=== PATIENT | female | born 1980 | race Caucasian/White ===

== ENCOUNTER 2022-08-26 14:55 | Outpatient (REF) | payer BC, SELFPAY ==
--- NOTE | 2022-08-26 17:36 | PFT_ITS ---
INDICATION: Chronic cough. SPIROMETRY: FEV1 to FVC 89% with an FEV1 3.28 L or 102% predicted. FVC of 3.69 L, which is 92% predicted. No significant response to bronchodilators noted. Maximum voluntary ventilation 116% predicted. LUNG VOLUMES: Total lung capacity 92% predicted. DIFFUSION CAPACITY: DLCO is 94% predicted. COMPARISONS: None. INTERPRETATION: No obstructive nor restrictive ventilatory defects identified. No significant response to bronchodilators noted. Normal maximum voluntary ventilation. Lung volumes are within normal limits and diffusion capacity also within normal limits. Flow volume loop within normal limits with normal respiratory mechanics. If asthma is in the differential, methacholine challenge may be helpful for assessing for hyper-reactive airways. Otherwise clinical correlation warranted. Johnathan Maurer MD MR/MODL / [id number]
== END 2022-08-26 14:56 | disposition home or self-care (01) ==
LOC: HO.RESP 14:55
PROVIDERS: PCP Nurse Practitioner Family; Visit Provider Nurse Practitioner Family
DX: R05.3 Chronic cough (principal)
CPT/HCPCS: 94060; 94727; 94729

== ENCOUNTER 2022-09-18 07:49 | Outpatient (REF) | payer BC, SELFPAY ==
[2022-09-18 08:00] LABS: MANUAL DIFF FLAG NO
[2022-09-18 08:08] LABS: Basophils Percent Auto 0.4 % (0-2); Eosinophils Absolute Auto 0.1 X10*3/uL (0.0-0.4); Eosinophils Percent Auto 1.8 % (0-4); Hemoglobin 14.5 g/dl (12.0-16.0); Imm Gran Abs Auto 0.01 X10*3/uL (0.00-0.03); Imm Gran Pct Auto 0.2 % (0.0-0.4); Lymphocytes Absolute Auto 1.6 X10*3/uL (1.2-4.9); Lymphocytes Percent Auto 28.4 % (20-40); Mean Corpuscular Hemoglobin 31.5 pg (27.0-33.0); Mean Corpuscular Volume 95.4 fL (80.0-98.0); Mean Platelet Volume 10.1 fL (9.4-12.3); Monocytes Absolute Auto 0.4 X10*3/uL (0.1-1.2); Monocytes Percent Auto 7.3 % (2-11); Neutrophils Absolute Auto 3.4 x10*3/uL (2.0-8.3); Neutrophils Percent Auto 61.9 % (45-73); Platelet Count 231 X10*3/uL (160-400); Red Blood Count 4.61 X10*6/uL (4.20-5.50); Red Cell Distribution Width 13.4 % (11.0-16.0); White Blood Count 5.5 X10*3/uL (4.8-10.8)
[2022-09-18 08:35] LABS: Alanine Aminotransferase 14 U/L (0-31); Albumin Level 4.4 g/dL (3.5-5.0); Alkaline Phosphatase 53 U/L (39-117); Anion Gap 10 (12-20); Aspartate Amino Transferase 16 U/L (5-31); Bilirubin Total 0.8 mg/dL (0.0-1.0); Blood Urea Nitrogen 18 mg/dL (9-16); Calcium 9.1 mg/dL (8.4-10.2); Carbon Dioxide 27 mmol/L (22-29); Chloride 104 mmol/L (96-108); Cholesterol 266 mg/dL; Estimated Glomerular Filt Rate > 60; Glucose Fasting 94 mg/dL (60-99); HDL Cholesterol 66 mg/dL; LDL Cholesterol Calculated 181 mg/dl; Sodium 137 mmol/L (135-145); Total Protein 6.7 g/dL (6.5-8.0); Triglycerides 95 mg/dL
[2022-09-18 08:52] LABS: TSH reflex Free T4 2.26 uIU/mL (0.32-4.0); Vitamin D 25-OH Total 26.2 ng/mL (>30)
[2022-09-18 09:05] LABS: Folate 15.2 ng/mL (> or = 4.0); Vitamin B12 621 pg/mL (200-900)
== END 2022-09-18 07:50 | disposition home or self-care (01) ==
LOC: HO.LAB 07:49
PROVIDERS: PCP Nurse Practitioner Family; Visit Provider Nurse Practitioner Family
DX: Z76.89 Persons encountering health services in other specified circumstances (principal)
CPT/HCPCS: 36415; 80053; 80061; 82306; 82607; 82746; 84443; 85025

== ENCOUNTER 2022-09-24 10:03 | Outpatient (REF) | payer BC, SELFPAY ==
--- NOTE | 2022-09-24 16:40 | PFT_ITS ---
SPIROMETRY: FEV1 98% of predicted at 3.15 L. FVC 92% of predicted at 3.65 L. FEV1 to FVC ratio of 0.86. METHACHOLINE CHALLENGE TEST: The patient had a positive for response to methacholine challenge consistent with underlying clinical diagnosis of asthma. IMPRESSION: Positive methacholine challenge test consistent with underlying clinical diagnosis of asthma. MD MIGUEL Richter/MONTRELL / [id number] MTDD
== END 2022-09-24 10:04 | disposition home or self-care (01) ==
LOC: HO.RESP 10:03
PROVIDERS: PCP Nurse Practitioner Family; Visit Provider Nurse Practitioner Family
DX: R05.3 Chronic cough (principal)
CPT/HCPCS: 94070; J7674

== ENCOUNTER → 2022-10-07 14:01 | Outpatient (BNVA) | payer BC, SELFPAY | PROVIDERS: PCP Nurse Practitioner Family; Visit Provider Internal Medicine | DX: Z13.89 Encounter for screening for other disorder (principal) ==

== ENCOUNTER 2022-11-14 15:49 | Outpatient (REF) | payer BC, SELFPAY ==
--- NOTE | ~2022-11-14 | MM_ITS ---
EXAMINATION: MM SCREENING DIGITAL BREAST TOMOSYNTHESIS, BILATERAL CLINICAL INFORMATION: Screening. Asymptomatic. The lifetime risk of breast cancer based on the Tyrer-Cuzick Model is 9%. COMPARISON: Outside mammography: 11/08/2021 ([facility]). TECHNIQUE: Digital breast tomosynthesis is performed in both the craniocaudal and mediolateral oblique views along with computer-aided detection (CAD). Synthesized 2D images are generated from the tomosynthesis. Additional right CC view is provided. FINDINGS: There are scattered areas of fibroglandular density (ACR BI-RADS breast composition Category b). There are no significant masses, abnormal calcifications, or other abnormalities. Parenchymal pattern is similar to prior outside exam. Several small intramammary nodes posterior upper outer left breast are stable. The axilla are unremarkable. MM/MM tomosynthesis screening BI IMPRESSION: No mammographic evidence of malignancy. ASSESSMENT: BI-RADS 2: Benign RECOMMENDATION: Routine annual mammography screening. This patient's information was entered into a reminder system with a target due date for their next mammogram.
== END 2022-11-14 15:50 | disposition home or self-care (01) ==
LOC: HO.MAMMO 15:49
PROVIDERS: PCP Nurse Practitioner Family; Visit Provider Nurse Practitioner Family
DX: Z12.31 Encounter for screening mammogram for malignant neoplasm of breast (principal)
CPT/HCPCS: 77063; 77067

== ENCOUNTER 2023-01-03 09:51 | Outpatient (REF) | payer BC, SELFPAY ==
--- NOTE | ~2023-01-03 | MR_ITS ---
EXAMINATION: MR cervical spine wo con, MR head/brain wo con CLINICAL INFORMATION: Reason for Exam G43.009 - Migraine without aura, not intractable. Assess for demyelinating disease. Self-reported peripheral vision loss left side lasting several hours, multiple episodes both eyes. Migraines. COMPARISON: None. TECHNIQUE: Unenhanced edema demyelinating protocol MRI of the brain; unenhanced demyelinating protocol MRI of the cervical spine. FINDINGS: MRI brain: Diffusion-weighted images demonstrate no evidence of acute infarcts. The ventricles and sulci are normal in size and configuration. No focal parenchymal lesions of the brain or abnormal extra-axial fluid collections are visualized. No intracranial hemorrhage or tumors are noted. The craniocervical junction cerebellar tonsils are normal in configuration. The pituitary is grossly normal. No suspicious marrow abnormalities identified. Susceptibility weighted images reveal no evidence of acute or chronic hemorrhage within the brain parenchyma. Normal flow-related signal intensity is identified in the major intracranial vessels and dural sinuses. The orbits and globes are normal in appearance. No significant mucosal thickening is identified in the paranasal sinuses, mastoid air cells and middle ear cavities. MRI cervical spine: The cervical thoracic spine is normal in appearance demonstrating normal contour, caliber and signal intensity. Straightening of the cervical lordosis is present and may be secondary to positioning during the examination. No vertebral body compression deformities identified. No suspicious vertebral body marrow signal abnormalities. C2-C3: No central or foraminal stenoses. C3-C4: No central or foraminal stenoses. C4-C5: No central or foraminal stenoses. C5-C6: Minimal posterior broad-based disc bulge. No associated significant central or foraminal stenoses. C6-C7: No central or foraminal stenoses. C7-T1: No central or foraminal stenoses. No facet arthropathic changes are identified. Within the visualized neck, no lymphadenopathy identified. Grossly normal flow-related signal intensity is identified within the visualized segments of the cervical carotid and vertebral artery systems. MR/MR cervical spine wo con IMPRESSION: Unenhanced demyelinating protocol MRI of the brain: 1. Normal. No evidence of demyelinating disease. Unenhanced demyelinating protocol MRI of the cervical spine: 1. No evidence of demyelinating disease. 2. C5-C6 minimal posterior broad-based disc. No significant central or foraminal stenoses within the cervical spine.
== END 2023-01-03 09:52 | disposition home or self-care (01) ==
LOC: HO.MRI 09:51
PROVIDERS: PCP Physician Assistant; Visit Provider Physician Assistant
DX: G43.009 Migraine without aura, not intractable, without status migrainosus (principal); H54.7 Unspecified visual loss
CPT/HCPCS: 70551; 72141

== ENCOUNTER 2023-01-07 10:50 | Outpatient (REF) | payer BC, SELFPAY ==
[2023-01-07 14:42] LABS: CT PCR NOT DETECTED (Not Detect.); NG PCR NOT DETECTED (Not Detect.)
[2023-01-09 04:44] LABS: HPV mRNA E6/E7 rflx Not Detected (Not Detected)
== END 2023-01-07 10:51 | disposition home or self-care (01) ==
LOC: HO.LNP 10:50
PROVIDERS: PCP Physician Assistant; Visit Provider Advanced Practice Midwife
DX: Z01.419 Encounter for gynecological examination (general) (routine) without abnormal findings (principal); Z11.51 Encounter for screening for human papillomavirus (HPV); Z20.2 Contact with and (suspected) exposure to infections with a predominantly sexual mode of transmission
CPT/HCPCS: 0353U; 87624; 88142

== ENCOUNTER 2023-02-28 07:47 | Outpatient (REF) | payer BC, SELFPAY ==
[2023-02-28 09:08] LABS: Anion Gap 12 (12-20); Blood Urea Nitrogen 14 mg/dL (9-16); Calcium 9.2 mg/dL (8.4-10.2); Carbon Dioxide 27 mmol/L (22-29); Chloride 104 mmol/L (96-108); Cholesterol 215 mg/dL; Estimated Glomerular Filt Rate > 60; Glucose Random 91 mg/dL (60-115); HDL Cholesterol 59 mg/dL; LDL Cholesterol Calculated 139 mg/dl; Potassium 3.9 mmol/L (3.3-5.1); Sodium 139 mmol/L (135-145); Triglycerides 85 mg/dL
[2023-02-28 09:16] LABS: Vitamin D 25-OH Total 39.9 ng/mL (>30)
== END 2023-02-28 07:48 | disposition home or self-care (01) ==
LOC: HO.LAB 07:47
PROVIDERS: PCP Nurse Practitioner Family; Visit Provider Nurse Practitioner Family
DX: L70.9 Acne, unspecified (principal); E78.5 Hyperlipidemia, unspecified; E55.9 Vitamin D deficiency, unspecified
CPT/HCPCS: 36415; 80048; 80061; 82306

== ENCOUNTER 2023-05-14 09:10 | Outpatient (REF) | payer BC, SELFPAY | END 2023-05-14 09:11 | disposition home or self-care (01) | LOC: HO.SH 09:10 | PROVIDERS: Visit Provider Physician Assistant | DX: Z01.118 Encounter for examination of ears and hearing with other abnormal findings (principal); H90.42 Sensorineural hearing loss, unilateral, left ear, with unrestricted hearing on the contralateral side | CPT/HCPCS: 92557; 92567 ==

== ENCOUNTER 2023-05-14 10:26 | Outpatient (REF) | payer SELFPAY | END 2023-05-14 10:27 | disposition home or self-care (01) | LOC: HO.HAP 10:26 | PROVIDERS: Visit Provider Physician Assistant | DX: Z46.1 Encounter for fitting and adjustment of hearing aid (principal); H90.42 Sensorineural hearing loss, unilateral, left ear, with unrestricted hearing on the contralateral side | CPT/HCPCS: 92590 ==

== ENCOUNTER 2023-05-21 10:55 | Outpatient (AMB) | payer BC, SELFPAY ==
[2023-05-21 10:57] VITALS: BP 106/68; PULSE 85; O2SAT 100; BMI 29.2
--- NOTE | 2023-05-21 10:57 | MHC.PC.OV ---
Vital Signs 05/21/23 10:57 Height 5 ft 6 in Weight 181 lb BMI 29.2 BP 106/68 Blood Pressure Location Lt brachial Position Sitting Pulse 85 Pulse Source Pulse Oximeter Temp Source Skin Pulse Oximetry (%) 100 Oxygen Delivery Method Room Air Intake Visit Reasons: left foot pain Intake Note: pt states group home left foot pain Blood Bank Worker Required: No Allergies No Known Allergies [No Known Allergies*] Allergy (Verified 05/21/23 11:08) Medication List - Last Reconciled 05/21/[address] albuterol sulfate 90 mcg/actuation (Ventolin HFA) 2 puffs inhalation Q4-6H PRN 30 days fluticasone propionate 44 mcg/actuation (Flovent HFA) 2 puffs inhalation BID lorazepam 0.5 mg PO BEDTIME PRN spironolactone 25 mg PO DAILY sumatriptan succinate take 1 tab at onset of headache; if no relief may repeat 1 tab after at least 2 hrs; max = 4 tabs/24 hr PO 30 days Tobacco use date assessed: 05/21/23 Dental Screening Dental Screen Date: 05/21/23 Did you have a dental visit in the last 12 months?: Yes Did you have a dental problem in the last 6 months where you did not have access to dental care?: No Was dental information given to patient?: Patient has dentist HPI left foot pain HPI Details Patient is a 42-year-old female who presents today for an office visit due to left heel pain for the past 3 months now. Medical history significant for right hip pain, and history of bilateral hip surgeries in the past. Patient denies injury. Patient reports she was wearing heel lift to left shoe and she did not have this pain, then she was advised by a chiropractor to stop wearing a left heel left shoe and that is when pain started. Patient reports taking ibuprofen, doing stretches, and frozen bottle exercises with no improvement, she also wears brace at night - and this can cause sometimes numbness and tingling in her left foot. No current numbness or tingling. Reports pain is worse with ambulation. Patient has a referral to see Podiatry, she was not seen yet, will follow-up on this. [facility] Medical History Asthma Encounter to establish care History of cigarette smoking History of smoking Hyperlipidemia Migraine with aura Surgical History History of hip surgery Previous section Family History Mother Diabetes Father History of prostate cancer Social History Household Members: Spouse Household Members Other:: 3 children (one on her own) Housing: House Alcohol intake: current Alcohol intake frequency: a few times a week Patient Tobacco Use Status: Former Tobacco user Tobacco use type: Cigarette Years Smoked: pt quit 13 years ago, 1PPD e-Cigarette/Vaping Use: Former Use Date or number of years quit: 11/21/22 Second Hand Smoke Exposure: No service: No 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al status: employed 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: [employer]/ [employer] 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al exposures/hazards: No Sexual orientation: Straight/Heterosexual Gender identity: Female Cognitive needs: No Hearing needs: No Vision needs: No Questionnaire Thrive Questionnaire Date Thrive assessed: 10/02/22 AUDIT C Alcohol Use Questionnaire (AUDIT-C) 1. How often do you have a drink containing alcohol?: Monthly or less 2. How many drinks containing alcohol do you have on a typical day when you are drinking?: 1 or 2 3. How often do you have six or more drinks on one occasion?: Never Total Score: 1 Score Reviewed/Action Taken: No CHINA-7 AMB Questionnaire CHINA-7 Date CHINA - 7 assessed: 10/02/22 Source: Developed by Drs. Tigre Hall, Misti Ashton, Albaro Bhatti and colleagues, with an educational chidi from [employer]. Review of Systems Const Denies body aches, Denies chills, Denies fever(s) and Denies headache(s) Eyes Denies change in vision ENT Denies dizziness, Denies otalgia, Denies headache(s), Denies nasal discharge, Denies sinus pain and Denies sore throat Card Denies chest pain, Denies edema, Denies lightheadedness and Denies dyspnea Resp Denies cough, Denies dyspnea and Denies wheezing GI Denies abdominal pain Denies dysuria Musc Reports as per HPI and Denies myalgias Skin/Breast Denies rash Neuro Denies dizziness and Denies headache(s) Aller/Immun Denies wheezing Physical exam (Primary Care) Vital Signs: Last Vital Signs Pulse 85 05/21/23 10:57 BP 106/68 05/21/23 10:57 Pulse Ox 100 05/21/23 10:57 Oxygen Delivery Method Room Air 05/21/23 10:57 BMI result Body Mass Index 29.2 Tobacco/Smoking Status: Tobacco use Status Tobacco use date assessed 05/21/23 05/21/23 11:03 Patient Tobacco Use Status Former Tobacco user 05/21/23 11:03 Tobacco use type Cigarette 05/21/23 11:03 e-Cigarette/Vaping Use Former Use 05/21/23 11:03 Thrive Assessment: Date of Thrive Assessment Date Thrive assessed 10/02/22 05/21/23 11:03 Const General: cooperative and no acute distress Orientation/consciousness: patient oriented x3 HENMT Head: Yes normocephalic and Yes atraumatic Mouth: oropharynx normal and moist mucous membranes Throat: Yes posterior oropharynx normal Eyes General: appearance normal, both eyes and all related structures Neck Neck: Yes normal visual inspection and Yes full ROM Resp Effort & Inspection: normal respiratory effort and able to speak in complete sentences Auscultation: clear to auscultation bilaterally, no crackles, no rales, no rhonchi and no wheezes Cardio Rate: regular rate Rhythm: regular rhythm Heart sounds: S1 normal heart sound present and S2 normal heart sound present Peripheral pulses: dorsalis pedis present on the left GI Auscultation: normal bowel sounds Skin General skin exam: no rashes or lesions noted Neuro General: patient oriented x3 Extrem Other: Unable to assess capillary refill due to red nail [place] on toes General: Yes full ROM and No edema Left lower extremity: foot Details: normal to inspection and tenderness Location: of the plantar foot Location: proximally and of the medial foot Location: proximally; no edema, no ecchymosis and no crepitus Assessment and Plan Assessment & Plan (1) Pain of left heel: Code(s): M79.672 - Pain in left foot Plan: Suspect plantar fasciitis. Will also obtain left foot x-ray. Podiatry referral. Patient is to continue frozen bottle exercises. Patient is to continue ibuprofen 800 mg every 8 hours p.r.n..-reports only minimal improvement. Will start prednisone 20 mg daily for 5 days. Patient agreed with the plan. Orders: Orders XR foot LT min 3V Today M79.672 - Pain in left foot Medications: New prednisone 20 mg PO DAILY 5 days 5 tabs 0RF M79.672 - Pain in left foot Coding Level of Care Code Est Pt Level 3 (21512) Diagnoses Pain of left heel M79.672
== END 2023-05-21 12:31 | disposition home or self-care (01) ==
PROVIDERS: PCP Nurse Practitioner Family; Visit Provider Nurse Practitioner Family
DX: M79.672 Pain in left foot (principal)
CPT/HCPCS: 99213

== ENCOUNTER 2023-05-21 11:24 | Outpatient (REF) | payer BC, SELFPAY ==
--- NOTE | ~2023-05-21 | XR_ITS ---
EXAMINATION: XR FOOT, LEFT CLINICAL INFORMATION: Left foot pain COMPARISON: None available. TECHNIQUE: AP, lateral, and oblique views of the left foot. FINDINGS: No evidence for acute bony fracture, dislocation, or erosive process. The metatarsals are intact. Slight to mild eccentric narrowing at the left first MTP joint. The midfoot appears intact. No calcaneal disruption or erosive process. XR/XR foot LT min 3V IMPRESSION: No acute process. Slight to mild eccentric narrowing at the left first MTP joint.
== END 2023-05-21 11:25 | disposition home or self-care (01) ==
LOC: HO.XRAY 11:24
PROVIDERS: PCP Nurse Practitioner Family; Visit Provider Nurse Practitioner Family
DX: M79.672 Pain in left foot (principal)
CPT/HCPCS: 73630

== ENCOUNTER 2023-06-18 09:54 | Outpatient (REF) | payer SELFPAY | END 2023-06-18 09:55 | disposition home or self-care (01) | LOC: HO.HAP 09:54 | PROVIDERS: Visit Provider Nurse Practitioner Family | DX: Z46.1 Encounter for fitting and adjustment of hearing aid (principal); H90.3 Sensorineural hearing loss, bilateral | CPT/HCPCS: V5221; V5299 ==

== ENCOUNTER 2023-07-15 13:00 | Outpatient (REF) | payer SELFPAY ==
--- NOTE | 2023-07-15 13:57 | MHC.AU.HA3 ---
Hearing Instrument Follow-Up- Binaural Date of Visit: 07/15/23 Right Ear: Rajan, Model, Color, Serial Number: Otjostin Real 2 miniRITE-R SN: [id number] Color: Lindon Bottle Capper Repair Warranty: 06/13/2026 Bottle Capper Loss and Damage Warranty: 06/13/2026 [facility] Service Plan: OPTED OUT Battery Size: Rechargeable Block And Case Maker/Slim Tube: 1/60 Earmold/Dome/CShell/SlimTip:6mm OpenBass dome with retention tail Type of Wax Guard: MiniFit Dispensed By: [facility] Date of Fittin06/18/2023 Left Ear: Rajan, Model, Color, Serial Number: Otjostin CROS PX SN: [id number] Color: Lindon Bottle Capper Repair Warranty: 06/13/2026 Bottle Capper Loss and Damage Warranty: 06/13/2026 [facility] Service Plan: OPTED OUT Battery Size: Rechargeable Block And Case Maker/Slim Tube: 1/60 Earmold/Dome/CShell/SlimTip: 6mm OpenBass dome with retention tail Type of Wax Guard: MiniFit Dispensed By: [facility] Date of Fittin06/18/2023 Follow-Up Summary: Georgette reported overall she notices significant benefit from the CROS system. Initially, there was an echo of her own voice; however, she has started to acclimate to it. Although there are still times she has difficulty hearing and understanding, when she left the hearing aids at home on a couple of occasions, she noticed a big difference without them. Her main concern at this time was the domes staying in her ears. She is constantly pushing them back in throughout the day. Added a retention tail to both aids with noted improvement in security of fit in office. Georgette also reported music via bluetooth streaming sounds terrible. Discussed differences between speech and music, goal of hearing aids, and influence of acoustic coupling. Added a second myMusic program with limited, if any, improvement of sound quality in office. Georgette will likely continue to use her AirPods for listening to music. Otherwise, she is happy with the hearing aids and confirmed the purchase, marking the end of the trial period. Discussed the need for periodic cleanings and [id number] for all future appointments. Gave two packages of domes as Georgette reported she did not receive any at the initial fitting. Recommendations: Hearing instrument follow-up or maintenance as needed. Please contact our clinic with any questions or concerns. Diagnosis Code(s): Primary Diagnosis: H90.42 SNHL Unilateral Left Side, W/Unrestricted Contralateral Hearing Signature: Provider: Reza Steel, CCC-A
== END 2023-07-15 13:01 | disposition home or self-care (01) ==
LOC: HO.HAP 13:00
PROVIDERS: Visit Provider Nurse Practitioner Family
DX: Z13.89 Encounter for screening for other disorder (principal)

== ENCOUNTER 2023-09-12 09:49 | Outpatient (AMB) | payer BC, SELFPAY ==
[2023-09-12 09:55] VITALS: BP 124/72; BMI 29.7
--- NOTE | 2023-09-12 09:55 | MHC.OFFVIS ---
Intake Vital Signs 09/12/23 09:55 Height 5 ft 6 in Weight 184 lb BMI 29.7 BP 124/72 Blood Pressure Location Rt brachial Position Sitting Intake Visit Reasons: Pain in left foot Intake Note: pt is here as a new patient for left foot pain that stated in february, had a lot of treatments and so far not much relief. 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 Patient reports that she has been suffering with this pain for greater than 6 months. She denies inciting injury, but states the pain started after chiropractor recommended removal of lift that she was using in that shoe to accommodate for shortening of her left lower extremity as compared to the right. She has since tried to put the insert back in but it hits right at the area where the pain is and makes the pain unbearable. Patient has tried anti-inflammatory medication, this is currently on hold due to scheduled surgery September 22 for unrelated condition. She tried acupuncture earlier this month, massage last month and she has been to the valve and regulator repairer for 3 serial cortisone injections. She reports a couple weeks of relief after the 2nd cortisone injection but states the 1st and 3rd offered no improvement of her pain. Patient states she has been doing PT/exercises at home including stretching and rolling a frozen water bottle. She is applying ice which does help some with the pain. She tried lidocaine patches which did not improve her pain. Patient is scheduled for an MRI of her left foot next week. Pain today is rated as a 9/10. Pain is constant worse in the morning and in the evenings and when initiating walking. In terms of muscle damage condition is described as aching, hot, burning, stabbing, sharp. Pain is negatively impacting patient's enjoyment of life, general activity, mood, normal work, recreational activities, sleep and walking. [facility] Medical History Asthma Encounter to establish care History of cigarette smoking History of smoking Hyperlipidemia Migraine with aura Surgical History History of hip surgery Previous section Family History Mother Diabetes Father History of prostate cancer Social History Household Members: Spouse Household Members Other:: 3 children (one on her own) Housing: House Alcohol intake: current Alcohol intake frequency: a few times a week Patient Tobacco Use Status: Former Tobacco user Tobacco use type: Cigarette Years Smoked: pt quit 13 years ago, 1PPD e-Cigarette/Vaping Use: Former Use Date or number of years quit: 11/21/22 Second Hand Smoke Exposure: No service: No 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al status: employed 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: [employer]/ [employer] 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al exposures/hazards: No Sexual orientation: Straight/Heterosexual Gender identity: Female Cognitive needs: No Hearing needs: No Vision needs: No Review of Systems Const All systems reviewed & are unremarkable except as noted in HPI and below Physical Exam Vital Signs: Last Vital Signs BP 124/72 09/12/23 09:55 BMI result Body Mass Index 29.7 General: awake, alert, oriented. Answers questions appropriately. Fully engaged in examination. Skin: warm, dry, intact HEENT: Normocephalic. Hearing intact. Cardiac: External chest normal in appearance. Respiratory: No cough, audible wheezing or stridor. Abdomen: without gross distension. MS: No obvious swelling or deformities. Tenderness to palpation over medial calcaneus Left foot ROM intact Neurological: Oriented to person, place, time and situation. Thought process intact. No gait abnormalities appreciated. Psychiatric: Appropriate mood and affect. Good judgment and insight. Results Reviewed Results Reviewed: 05/21/2023 XR/XR foot LT min 3V FINDINGS: No evidence for acute bony fracture, dislocation, or erosive process. The metatarsals are intact. Slight to mild eccentric narrowing at the left first MTP joint. The midfoot appears intact. No calcaneal disruption or erosive process. IMPRESSION: No acute process. Slight to mild eccentric narrowing at the left first MTP joint. Assessment & Plan Assessment & Plan (1) Plantar fasciitis of left foot: Code(s): M72.2 - Plantar fascial fibromatosis (2) Chronic pain in left foot: Code(s): M79.672 - Pain in left foot; G89.29 - Other chronic pain Plan Georgette presented to the office today for evaluation and management of her chronic left foot pain. Patient has exhausted conservative therapy including PT/HEP, NSAIDs, serial cortisone injections, stretching, acupuncture, massage, lidocaine and orthopedic inserts without improvement of her pain. NSAIDs currently on hold due to surgery 09/22/2023, will sent topical diclofenac gel, patient will reach out to surgeon prior to use. Discussed options for treatment including diagnostic interventional testing, steroid injections, peripheral nerve stimulation with Sprint, RFA and more permanent neuromodulation. Informational pamphlets provided. Will schedule for US guided left posterior tibial nerve block with local anesthetic, with plan for Sprint PNS pending positive results of diagnostic injection. All questions and concerns have been answered and patient agrees with the plan. Follow up after injections and sooner if needed. Medications: New diclofenac sodium 3% 1 appl topical BID 100 grams 1RF Coding Level of Care Code New Pt Level 4 (31086) Diagnoses Plantar fasciitis of left foot M72.2 Chronic pain in left foot M79.672; G89.29
== END 2023-09-12 10:38 | disposition home or self-care (01) ==
PROVIDERS: PCP Nurse Practitioner Family; Referring Provider Nurse Practitioner Family; Visit Provider Registered Nurse Emergency
DX: M79.672 Pain in left foot (principal); M72.2 Plantar fascial fibromatosis; G89.29 Other chronic pain
CPT/HCPCS: 99204

== ENCOUNTER → 2023-09-12 09:49 | Outpatient (BNVA) | payer BC, SELFPAY | PROVIDERS: PCP Nurse Practitioner Family; Referring Provider Nurse Practitioner Family; Visit Provider Registered Nurse Emergency ==

== ENCOUNTER 2023-09-16 15:52 | Outpatient (REF) | payer BC, SELFPAY | END 2023-09-16 15:53 | disposition home or self-care (01) | LOC: HO.MRI 15:52 | PROVIDERS: PCP Nurse Practitioner Family; Visit Provider Nurse Practitioner Family | DX: M79.672 Pain in left foot (principal); M72.2 Plantar fascial fibromatosis | CPT/HCPCS: 73718 ==

== ENCOUNTER 2023-10-16 13:48 | Outpatient (AMB) | payer BC, SELFPAY ==
--- NOTE | 2023-10-16 13:52 | MHC.PC.OV ---
Vital Signs 10/16/23 13:54 Height 5 ft 6 in Weight 177 lb 8 oz BMI 28.6 BP 110/74 Blood Pressure Location Lt brachial Position Sitting Pulse 91 Pulse Source Pulse Oximeter Pulse Oximetry (%) 98 Oxygen Delivery Method Room Air Intake Visit Reasons: [facility] [place], [place] Intake Note: Patient is here to follow up on DVT after lipo suction and abdominal pasty. Security Assistant Required: No Telephone Directory Distributor Driver: Not Required per policy Accompanied by: Self / Same As Patient Allergies No Known Allergies [No Known Allergies*] Allergy (Verified 10/16/23 14:25) Medication List - Last Reconciled 10/16/23 by Raul Richardson MD albuterol sulfate 90 mcg/actuation (Ventolin HFA) 2 puffs inhalation Q4-6H PRN 30 days apixaban (Eliquis) 5 mg PO BID diclofenac sodium 3% 1 appl topical BID fluticasone propionate 44 mcg/actuation (Flovent HFA) 2 puffs inhalation BID lorazepam 0.5 mg PO BEDTIME PRN spironolactone 25 mg PO DAILY sumatriptan succinate take 1 tab at onset of headache; if no relief may repeat 1 tab after at least 2 hrs; max = 4 tabs/24 hr PO 30 days Tobacco use date assessed: 10/16/23 Dental Screening Dental Screen Date: 10/16/23 Did you have a dental visit in the last 12 months?: Yes Did you have a dental problem in the last 6 months where you did not have access to dental care?: No Was dental information given to patient?: Patient has dentist [facility], dvt HPI Details 43-year-old female presents to the office to discuss her medical condition. I am resuming her care as her current primary care provider has left the practice. Patient had an elective abdominoplasty on September 22. On a follow-up visit on October 07 she complained of pain in the left upper thigh. An ultrasound of the leg showed a blood clot. Patient was taken to the emergency room at [facility] and subsequently discharged on Eliquis. She is on 5 mg twice a day for the next 30 days. Today is day 10. Subsequently she will be taking 2.5 mg. Patient is feeling better as far as the left thigh pain goes. The symptoms have resolved. However she continues to have restricted activity due to the abdominoplasty. For another 2 weeks she has been advised not to exert herself. Patient is compliant with all medications. [facility] Medical History Deep vein thrombosis of left lower extremity Migraine with aura History of smoking Asthma Hyperlipidemia Encounter to establish care History of cigarette smoking Surgical History (Updated 10/16/23 @ 14:02 by CARMEN Leblanc) History of abdominal surgery Previous section History of hip surgery Family History Mother Diabetes Father History of prostate cancer Social History Household Members: Spouse Household Members Other:: 3 children (one on her own) Housing: House Alcohol intake: current Alcohol intake frequency: a few times a week Patient Tobacco Use Status: Former Tobacco user Tobacco use type: Cigarette Years Smoked: pt quit 13 years ago, 1PPD e-Cigarette/Vaping Use: Currently Using Second Hand Smoke Exposure: No service: No 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al status: employed 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: [employer]/ [employer] 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al exposures/hazards: No Sexual orientation: Straight/Heterosexual Gender identity: Female Cognitive needs: No Hearing needs: No Vision needs: Yes (glasses) Questionnaire PHQ-9 Over the last 2 weeks, how often have you been bothered by any of the following problems? 1. Little interest or pleasure in doing things: not at all 2. Feeling down, depressed, or hopeless: not at all 3. Trouble falling or staying asleep, or sleeping too much: not at all 4. Feeling tired or having little energy: not at all 5. Poor appetite or overeating: not at all 6. Feeling bad about yourself - or that you are a failure or have let yourself or your family down: not at all 7. Trouble concentrating on things, such as reading the newspaper or watching television: not at all 8. Moving or speaking so slowly that other people could have noticed. Or the opposite - being so fidgety or restless that you have been moving around a lot more than usual: not at all 9. Thoughts that you would be better off or of hurting yourself in some way: not at all Total score: 0 Depression Screening Interpretation: Negative Depression Screening Done: Yes Source: Developed by Rufino Bartonet B.W. Poli, Albaro Bhatti and colleagues, with an educational chidi from [employer]. Thrive Questionnaire Date Thrive assessed: 10/16/23 I am a: Patient What is your living situation today?: I have a steady place to live Within the past 12 months, did the food you bought not last and you didn't have the money to get more?: Never true Within the past 12 months, did you worry whether your food would run out before you got money to buy more?: Never true Do you have trouble paying for medicines?: No Do you have trouble getting transportation to medical appointments?: No Do you have trouble paying your heating and electricity bill?: No Do you have trouble taking care of your child, family member or friend?: No Do you have trouble with day-to-day activities such as bathing, preparing meals, shopping, managing finances, etc.?: No Are you currently unemployed and looking for a job?: No Are you interested in more education?: No Currently or been in a relationship where the following occur: no concerns reported THRIVE Score: 0 AUDIT C Alcohol Use Questionnaire (AUDIT-C) 1. How often do you have a drink containing alcohol?: Monthly or less 2. How many drinks containing alcohol do you have on a typical day when you are drinking?: 1 or 2 Total Score: 1 CHINA-7 AMB Questionnaire CHINA-7 Date CHINA - 7 assessed: 10/16/23 Feeling nervous, anxious, or on edge: 3 = Nearly every day Not being able to stop or control worryin = Not at all Worrying too much about different things: 0 = Not at all Trouble relaxin = Several days Being so restless that it is hard to sit still: 0 = Not at all Becoming easily annoyed or irritable: 1 = Several days Feeling afraid as if something awful might happen: 0 = Not at all Total CHINA-7 score (0-4 normal; 5-9 mild; 10-14 moderate; 15-21 severe): 5 Source: Developed by Drs. Tigre Hall, Misti Ashton, Albaro Bhatti and colleagues, with an educational chidi from [employer]. Physical exam (Primary Care) Tobacco/Smoking Status: Tobacco use Status Tobacco use date assessed 05/21/23 09/01/23 15:26 Patient Tobacco Use Status Former Tobacco user 09/01/23 15:26 Tobacco use type Cigarette 09/01/23 15:26 e-Cigarette/Vaping Use Former Use 09/01/23 15:26 Depression Screening Interpretation: Negative Thrive Assessment: Date of Thrive Assessment Date Thrive assessed 10/02/22 09/01/23 15:26 Currently or been in a relationship where the following occur: no concerns reported Const General: cooperative and healthy appearing Nutritional Appearance: well nourished Orientation/consciousness: patient oriented x3 Limitations: no limitations HENMT Head: Yes normal to inspection Eyes General: appearance normal, both eyes and all related structures Neck Neck: Yes normal visual inspection Chest Chest palpation & inspection: normal palpation of entire chest wall Resp Effort & Inspection: normal respiratory effort Other: Abdomen: In a binder. A drain is present. Neuro General: patient oriented x3 Assessment and Plan Assessment & Plan (1) Plantar fasciitis of left foot: Code(s): M72.2 - Plantar fascial fibromatosis Plan: Patient continues to have pain in the left foot. She has an appt with [facility] for a full lower leg cast. (2) Deep vein thrombosis of left lower extremity: Code(s): I82.402 - Acute embolism and thrombosis of unspecified deep veins of left lower extremity Plan: Ultrasound records from [facility] to be obtained. Continue Eliquis for 30 days at 5 mg twice a day. Subsequently will reduce it to 2.5 mg. Prescriptions will be from this office. Duration of treatment depends on the clot location and probably up to 6 months. Coding Level of Care Code Est Pt Level 4 (70778) Diagnoses Plantar fasciitis of left foot M72.2 Deep vein thrombosis of left lower extremity I82.402
[2023-10-16 13:54] VITALS: BP 110/74; PULSE 91; O2SAT 98; BMI 28.6
== END 2023-10-16 15:17 | disposition home or self-care (01) ==
PROVIDERS: PCP Nurse Practitioner Family; Visit Provider Internal Medicine
DX: M72.2 Plantar fascial fibromatosis (principal); I82.402 Acute embolism and thrombosis of unspecified deep veins of left lower extremity
CPT/HCPCS: 99214

== ENCOUNTER 2023-11-20 15:57 | Outpatient (REF) | payer BC, SELFPAY | END 2023-11-20 15:58 | disposition home or self-care (01) | LOC: HO.MAMMO 15:57 | PROVIDERS: PCP Internal Medicine; Visit Provider Nurse Practitioner Family | DX: Z12.31 Encounter for screening mammogram for malignant neoplasm of breast (principal) | CPT/HCPCS: 77063; 77067 ==

== ENCOUNTER → 2023-11-20 16:00 | Outpatient (BNV) | payer BC, SELFPAY | PROVIDERS: PCP Internal Medicine; Visit Provider Radiology Diagnostic Radiology | DX: Z12.31 Encounter for screening mammogram for malignant neoplasm of breast (principal) | CPT/HCPCS: 77063; 77067 ==

== ENCOUNTER 2023-11-27 13:12 | Outpatient (REF) | payer SELFPAY | END 2023-11-27 13:13 | disposition home or self-care (01) | LOC: HO.HAP 13:12 | PROVIDERS: Visit Provider Internal Medicine | DX: Z13.89 Encounter for screening for other disorder (principal) ==

== ENCOUNTER 2024-01-15 13:58 | Outpatient (AMB) | payer BC, SELFPAY ==
--- NOTE | 2024-01-15 13:59 | MHC.OFFVIS ---
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 Doing well with no concerns. She developed a postop deep vein thrombosis after her tummy tuck surgery in September. Currently on Eliquis and reports her cycles are regular but longer and heavier, she will be discontinuing Eliquis in 3 months. She tries to eat healthy and stays active with exercise. Currently is sexually active with who had a vasectomy. She denies vaginal itching and irritation. STI screening offered; she declines. Denies family history of breast, ovarian or colon cancer. Last pap smear 2022, negative. Mammogram: 2023. PFSH Medical History Deep vein thrombosis of left lower extremity Migraine with aura History of smoking Asthma Hyperlipidemia Encounter to establish care History of cigarette smoking Surgical History H/O liposuction of abdomen H/O abdominoplasty Previous section History of hip surgery Family History Mother Diabetes Father History of prostate cancer Social History Household Members: Spouse Household Members Other:: 3 children (one on her own) Housing: House Alcohol intake: current Alcohol intake frequency: a few times a week Patient Tobacco Use Status: Former Tobacco user Tobacco use type: Cigarette Years Smoked: pt quit 13 years ago, 1PPD e-Cigarette/Vaping Use: Currently Using Second Hand Smoke Exposure: No service: No 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al status: employed 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: [employer]/ [employer] 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al exposures/hazards: No Sexual orientation: Straight/Heterosexual Gender identity: Female Cognitive needs: No Hearing needs: No Vision needs: Yes (glasses) Female Reproductive History Menstrual Duration of menses: 3-5 days Date of last menstrual period: 12/31/23 control method: other (vasectomy) Total pregnancies: 6 Full term: 3 Number of Living Children: 3 Ab induced: 1 Ab spontaneous: 2 Date of last pap smear: 01/07/23 (neg pap and hpv) Date of Mammogram: 11/20/23 (Birad 1) Review of Systems Const All systems reviewed & are unremarkable except as noted in HPI and below Reports as per HPI Eyes Reports no additional complaints ENT Reports no additional complaints Card Reports no additional complaints Resp Reports no additional complaints GI Reports as per HPI and Reports no additional complaints Reports as per HPI Musc Reports no additional complaints Skin/Breast Reports as per HPI Neuro Reports no additional complaints Psych Reports no additional complaints Endo Reports no additional complaints Ankit/Lymph Reports no additional complaints Aller/Immun Reports no additional complaints Physical Exam Vital Signs: Last Vital Signs BP 98/60 01/15/24 14:01 BMI result Body Mass Index 29.7 Const General: cooperative, healthy appearing, no acute distress, well developed and alert Orientation/consciousness: patient oriented x3 HEENT Head: Yes normal to inspection Eyes General: appearance normal, both eyes and all related structures Neck Neck: Yes normal visual inspection Thyroid: Thyroid normal Chest Chest palpation & inspection: normal inspection of the chest and other (no puckering, dimpling, peau de orange, retraction, discharge, masses) Breast/axilla inspection: normal inspection of the breasts Breast/axilla palpation: normal palpation of the breasts Resp Effort & Inspection: normal respiratory effort GI Inspection: Yes normal to inspection and Yes scar Palpation (GI): Soft to palpation Rectal Exam - Female: deferred General: Yes bladder normal to palpation External Female Exam: normal external appearance and normal appearance of the urethra Speculum Exam - Vagina: normal appearance of the vagina, normal palpation and normal vaginal discharge Speculum Exam - Cervix: normal appearance of the cervix and normal palpation Bimanual exam- vagina & uterus: normal bimanual exam, normal palpation, uterine size normal, bladder normal to palpation, normal palpation and non-tender Bimanual Exam- Adnexa, other: no masses Skin General skin exam: no rashes or lesions noted Rashes: no rashes Neuro General: patient oriented x3 Cognition (Neuro): normal cognition Extrem General: Yes normal to inspection Psych Attitude: cooperative Thought process: Normal thought process present Assessment & Plan Assessment & Plan (1) Encounter for well woman exam with routine gynecological exam: Code(s): Z01.419 - Encounter for gynecological examination (general) (routine) without abnormal findings Plan Discussed: Current recommendations for pap smears per ASCCP guidelines. Breast awareness and periodic breast exams. Maintain a healthy lifestyle including a well balanced diet and routine exercise. Mammogram yearly. Monitor periods notify office if any heavy prolonged episodes. Anticipate improvement after Eliquis is discontinued. Patient verbalizes understanding and agrees to the plan of care. She was given opportunity to ask questions and all questions were answered to the best of my ability. RTO in one year for annual inventory assistant examination. This note is constructed using voice recognition software. While every effort has been made to ensure accuracy, rn pain management errors may have been included. Coding Level of Care Code Est Pt Prev Care 40-64y(38379) Diagnoses Encounter for well woman exam with routine gynecological exam Z01.419
[2024-01-15 14:01] VITALS: BP 98/60; BMI 29.7
== END 2024-01-15 14:31 | disposition home or self-care (01) ==
PROVIDERS: PCP Nurse Practitioner Family; Visit Provider Advanced Practice Midwife
DX: Z01.419 Encounter for gynecological examination (general) (routine) without abnormal findings (principal)
CPT/HCPCS: 99396

== ENCOUNTER → 2024-01-15 13:58 | Outpatient (BNVA) | payer BC, SELFPAY | PROVIDERS: PCP Nurse Practitioner Family; Visit Provider Advanced Practice Midwife ==

== ENCOUNTER 2024-01-16 08:18 | Outpatient (AMB) | payer BC, SELFPAY ==
--- NOTE | 2024-01-16 08:24 | MHC.OFFVIS ---
Vital Signs 01/16/24 08:25 Height 5 ft 6 in Weight 186 lb BMI 30.0 BP 111/58 L Blood Pressure Location Lt brachial Position Sitting Respiration 14 Pulse 81 Pulse Source Pulse Oximeter Pulse Oximetry (%) 99 Oxygen Delivery Method Room Air Intake Visit Reasons: Left Dx posterior tibial NB Allergies No Known Allergies [No Known Allergies*] Allergy (Verified 01/16/24 08:26) Medication List - Last Reconciled 01/16/24 by Deidre Griffin LPN albuterol sulfate 90 mcg/actuation (Ventolin HFA) 2 puffs inhalation Q4-6H PRN 30 days apixaban (Eliquis) 2.5 mg PO BID diclofenac sodium 3% 1 appl topical BID fluticasone propionate 44 mcg/actuation (Flovent HFA) 2 puffs inhalation BID lorazepam 0.5 mg PO BEDTIME PRN spironolactone 25 mg PO DAILY sumatriptan succinate take 1 tab at onset of headache; if no relief may repeat 1 tab after at least 2 hrs; max = 4 tabs/24 hr PO 30 days HPI HPI Left Dx posterior tibial NB: Details: 43-year-old female who presents today to the office for a left diagnostic tibial nerve block. Denies any recent cough, cold, infection, fever or other significant changes in medical history since last office visit. She states the pain started after the chiropractor recommended the removal of the lift that she was using in that shoe to accommodate the shortening of her left lower extremity as compared to the right. She has since tried to put the insert back in, but it hits right at the area where the pain is and makes the pain unbearable.? The patient has tried anti-inflammatory medication. She tried acupuncture and massage. She has been to the jigger operator and [facility] for three serial cortisone injections. She reports a couple weeks of relief after the second cortisone injection at [facility], but states the first and third offered no improvement in her pain. She has been doing PT exercises at home, including stretching and rolling a frozen water bottle. She is applying ice, which does help some with the pain. She tried lidocaine patches, which did not improve her pain. PFSH Medical History Deep vein thrombosis of left lower extremity Migraine with aura History of smoking Asthma Hyperlipidemia Encounter to establish care History of cigarette smoking Surgical History H/O liposuction of abdomen H/O abdominoplasty Previous section History of hip surgery Family History Mother Diabetes Father History of prostate cancer Social History Household Members: Spouse Household Members Other:: 3 children (one on her own) Housing: House Alcohol intake: current Alcohol intake frequency: a few times a week Patient Tobacco Use Status: Former Tobacco user Tobacco use type: Cigarette Years Smoked: pt quit 13 years ago, 1PPD e-Cigarette/Vaping Use: Currently Using Second Hand Smoke Exposure: No service: No 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al status: employed 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: [employer]/ [employer] 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al exposures/hazards: No Sexual orientation: Straight/Heterosexual Gender identity: Female Cognitive needs: No Hearing needs: No Vision needs: Yes (glasses) Review of Systems Const All systems reviewed & are unremarkable except as noted in HPI and below Physical Exam Vital Signs: Last Vital Signs Pulse 81 01/16/24 08:25 Resp 14 01/16/24 08:25 BP 111/58 L 01/16/24 08:25 Pulse Ox 99 01/16/24 08:25 Oxygen Delivery Method Room Air 01/16/24 08:25 BMI result Body Mass Index 30.0 General: Appears afebrile. Alert and oriented. Mood and affect appropriate. Follows and participates in conversation appropriately. Respiratory effort is unlabored. Able to transition from sit to stand unassisted. Ambulates with bilaterally normal heel strike and toe off. On ultrasound exam of the left heel, no obvious fluid collections or tears in the fascial layer. Tenderness to palpation overlying the posterior calcaneus. Office Procedures Nerve Block Details: Left diagnostic tibial nerve block, ultrasound guided. After obtaining written consent, pre-procedure blood pressure and heart rate were stable and recorded in the nursing record. The patient was placed supine on the table. The medial thigh area overlying the left lower leg was widely prepped with chloraprep, allowed to dry. Using ultrasound, the appropriate landmarks including the posterior tibial artery and nerve were identified. A 25 gauge 1.5 in needle was advanced under sonographic guidance to the posterior tibial nerve. Aspiration was negative for heme. 3 cc of lidocaine 1% was injected around the posterior tibial nerve. The needle was removed, skin cleansed and a sterile bandage was applied. The patient tolerated the procedure well and no complications were encountered. Following the procedure the patient's vital signs and foot strength were stable. The patient was discharged home in good condition with post-procedural instructions. Time Out: Immediately prior to the procedure, the following was verbally confirmed that there is a signed consent form and that the correct patient, planned procedure, site and side are consistent with documentation and that necessary equipment and/or blood products are available prior to the start of the case. Complications: none EBL: <1 cc Note: An ultrasound image of the injection was taken and stored in the permanent record. Procedure code (CPT) selection complete Results Reviewed Results Reviewed: 09/16/23: MR FOOT WITHOUT CONTRAST, LEFT FINDINGS: BONE AND ARTICULAR CARTILAGE: Mild reactive marrow edema along the plantar aspect of the posterior calcaneus adjacent to the plantar fascial insertion. No associated fracture line. No additional abnormal marrow signal. No acute fracture or dislocation. The ankle mortise is maintained. No talar osteochondral lesion. Intact articular cartilage. ACHILLES TENDON: Intact. OTHER TENDONS: Trace fluid within the posterior tibialis tendon sheath, consistent with minimal tenosynovitis. No transverse tendon tear or tendon retraction. LIGAMENTS: Diffuse heterogeneity of the anterior and posterior talofibular ligaments without associated edema, consistent with remote sprain/partial tears. No evidence of acute ligament injury. JOINT FLUID AND SOFT TISSUES: Small tibiotalar, posterior subtalar, and talonavicular joint effusions. Synovial recess along the superolateral aspect of the talonavicular joint measuring up to 2.4 cm. PLANTAR FASCIA: Thickening of the proximal plantar fascia with intrasubstance increased T2 signal and prominent adjacent soft tissue edema, consistent with acute plantar fasciitis. No transverse fascial tear or retraction. SINUS TARSI AND TARSAL TUNNEL: Patent. IMPRESSION: 1. Acute plantar fasciitis without a transverse fascial tear or retraction. Reactive marrow edema within the posterior calcaneus without an associated fracture line. 2. Minimal posterior tibialis tenosynovitis without a measurable tendon tear. 3. Remote sprain/partial tears of the anterior and posterior talofibular ligaments. No evidence of acute ligament injury. 4. Small tibiotalar, posterior subtalar, and talonavicular joint effusions. Synovial recess along the superolateral aspect of the talonavicular joint measuring up to 2.4 cm. Assessment & Plan Assessment & Plan (1) Plantar fasciitis of left foot: Code(s): M72.2 - Plantar fascial fibromatosis Category: Medical Plan I had a long discussion with the patient regarding treatment options for her pain, which appears to be likely secondary to chronic plantar fasciitis. We reviewed the MRI scan of the foot today. I think she would benefit from regenerative medicine techniques, including shockwave therapy or PRP injections, which would help restore her plantar fascia to normal state and function. She has so far tried steroid injections, but given the risks to the integrity of the plantar fascia, I do not recommend further steroid injections. She has also exhausted physical therapy and acupuncture without benefit. Given her age, I do not think she is a great candidate for a permanent neuromodulation strategy, and her pain appears to be mostly nociceptive in nature instead of neuropathic. I did still go ahead with the posterior tibial nerve block today as scheduled to have this piece in place in case we decide to try neuromodulation in the future after regenerative medicine techniques have been tried. At this time, I have provided the patient with contact information for shockwave therapy for plantar fasciitis, and she will be in touch with us if she decides to move forward with a PRP injection with us. Scribed for Dr. Brock by Jayy Olmedo, medical case manager, on 01/16/2024. I, Dr. Brock, have personally reviewed and agree with the information entered by the scribe. Coding Level of Care Code Est Pt Level 4 (86170) Diagnoses Plantar fasciitis of left foot M72.2
[2024-01-16 08:25] VITALS: BP 111/58; PULSE 81; RESP 14; O2SAT 99
== END 2024-01-16 08:51 | disposition home or self-care (01) ==
PROVIDERS: PCP Internal Medicine; Visit Provider Internal Medicine
DX: M72.2 Plantar fascial fibromatosis (principal)
CPT/HCPCS: 64450; 76942; 99214

== ENCOUNTER → 2024-01-16 08:18 | Outpatient (BNVA) | payer BC, SELFPAY | PROVIDERS: PCP Internal Medicine; Visit Provider Internal Medicine | DX: M72.2 Plantar fascial fibromatosis (principal) | CPT/HCPCS: 64450 ==

== ENCOUNTER 2024-01-20 08:00 | Outpatient (RCR) | payer BC, SELFPAY | END 2024-03-12 07:39 | disposition home or self-care (01) | LOC: HO.PT 08:00 | PROVIDERS: PCP Internal Medicine; Visit Provider Orthopaedic Surgery | DX: M72.2 Plantar fascial fibromatosis (principal) | CPT/HCPCS: 97033; 97110; 97112; 97140; 97162; 97530; 97535 ==

== ENCOUNTER 2024-02-12 13:23 | Outpatient (AMB) | payer BC, SELFPAY ==
--- NOTE | 2024-02-12 13:29 | MHC.PC.OV ---
Vital Signs 02/12/24 13:31 Height 5 ft 6 in Weight 183 lb 8 oz BMI 29.6 BP 128/64 Blood Pressure Location Lt brachial Position Sitting Pulse 96 Pulse Source Pulse Oximeter Pulse Oximetry (%) 98 Oxygen Delivery Method Room Air Intake Visit Reasons: Annual Exam Intake Note: Patient is here today for a physical and ARIE. 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 Manufacturers Service Representative: Not Required per policy Accompanied by: Self / Same As Patient Allergies No Known Allergies [No Known Allergies*] Allergy (Verified 02/12/24 14:00) Medication List - Last Reconciled 02/12/24 by Raul Richardson MD albuterol sulfate 90 mcg/actuation (Ventolin HFA) 2 puffs inhalation Q4-6H PRN 30 days apixaban (Eliquis) 2.5 mg PO BID diclofenac sodium 3% 1 appl topical BID fluticasone propionate 44 mcg/actuation (Flovent HFA) 2 puffs inhalation BID lorazepam 0.5 mg PO BEDTIME PRN spironolactone 25 mg PO DAILY sumatriptan succinate take 1 tab at onset of headache; if no relief may repeat 1 tab after at least 2 hrs; max = 4 tabs/24 hr PO 30 days Tobacco use date assessed: 02/12/24 Dental Screening Dental Screen Date: 10/16/23 HPI Annual Exam HPI Details 43-year-old female presents to the office requesting an annual physical. in addition patient also wishes to discuss her general anxiety disorder. Patient has been diagnosed with general anxiety disorder which is well controlled with intermittent use of lorazepam. She takes between 1-3 pills of 0.5 mg lorazepam a week and her symptoms are well controlled. [facility] Medical History Generalized anxiety disorder Plantar fasciitis of left foot Deep vein thrombosis of left lower extremity Migraine with aura History of smoking Asthma Hyperlipidemia Encounter to establish care History of cigarette smoking Surgical History H/O liposuction of abdomen H/O abdominoplasty Previous section History of hip surgery Family History Mother Diabetes Father History of prostate cancer Social History Household Members: Spouse Household Members Other:: 3 children (one on her own) Housing: House Alcohol intake: current Alcohol intake frequency: a few times a week Patient Tobacco Use Status: Former Tobacco user Tobacco use type: Cigarette Years Smoked: pt quit 13 years ago, 1PPD e-Cigarette/Vaping Use: Currently Using Second Hand Smoke Exposure: No service: No 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al status: employed 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: [employer]/ 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al exposures/hazards: No Sexual orientation: Straight/Heterosexual Gender identity: Female Cognitive needs: No Hearing needs: No Vision needs: Yes (glasses) Questionnaire Thrive Questionnaire Date Thrive assessed: 10/16/23 CHINA-7 AMB Questionnaire CHINA-7 Date CHINA - 7 assessed: 02/12/24 Feeling nervous, anxious, or on edge: 1 = Several days Not being able to stop or control worryin = Not at all Worrying too much about different things: 0 = Not at all Trouble relaxin = Several days Being so restless that it is hard to sit still: 0 = Not at all Becoming easily annoyed or irritable: 2 = More than half the days Feeling afraid as if something awful might happen: 0 = Not at all Total CHINA-7 score (0-4 normal; 5-9 mild; 10-14 moderate; 15-21 severe): 4 Source: Developed by Drs. Tigre Hall, Misti Ashton, Albaro Bhatti and colleagues, with an educational chidi from [employer]. Physical exam (Primary Care) Vital Signs: Last Vital Signs Pulse 96 02/12/24 13:31 BP 128/64 02/12/24 13:31 Pulse Ox 98 02/12/24 13:31 Oxygen Delivery Method Room Air 02/12/24 13:31 BMI result Body Mass Index 29.6 Tobacco/Smoking Status: Tobacco use Status Tobacco use date assessed 02/12/24 02/12/24 13:39 Patient Tobacco Use Status Former Tobacco user 02/12/24 13:39 Tobacco use type Cigarette 02/12/24 13:39 e-Cigarette/Vaping Use Currently Using 02/12/24 13:39 Thrive Assessment: Date of Thrive Assessment Date Thrive assessed 10/16/23 02/12/24 13:39 Const General: cooperative and healthy appearing Nutritional Appearance: well nourished Orientation/consciousness: patient oriented x3 Limitations: no limitations HENMT Head: Yes normal to inspection Eyes General: appearance normal, both eyes and all related structures Neck Neck: Yes normal visual inspection Chest Chest palpation & inspection: normal palpation of entire chest wall Resp Effort & Inspection: normal respiratory effort Neuro General: patient oriented x3 Assessment and Plan Assessment & Plan (1) Plantar fasciitis of left foot: Code(s): M72.2 - Plantar fascial fibromatosis Plan: she has received a neural block with minimal improvement. She is now getting a pulsed ultrasound therapy. Patient [facility] the provider at [facility]. (2) Generalized anxiety disorder: Code(s): F41.1 - Generalized anxiety disorder Plan: Lorazepam 15 pills for 30 days will be called in. (3) Annual physical exam: Code(s): Z00.00 - Encounter for general adult medical examination without abnormal findings Plan: Patient is current on her mammogram. Fasting blood work has been ordered. (4) Deep vein thrombosis of left lower extremity: Code(s): I82.402 - Acute embolism and thrombosis of unspecified deep veins of left lower extremity Plan: continue the apixaban at current dosage. At the end of March she should be completing 6 months. An ultrasound of the leg will be done to determine if she continues to need the medication. Coding Level of Care Code Est Pt Level 4 (83088) Est Pt Prev Care 40-64y(59485) Diagnoses Plantar fasciitis of left foot M72.2 Generalized anxiety disorder F41.1 Annual physical exam Z00.00 Deep vein thrombosis of left lower extremity I82.402
[2024-02-12 13:31] VITALS: BP 128/64; PULSE 96; O2SAT 98; BMI 29.6
== END 2024-02-12 13:58 | disposition home or self-care (01) ==
PROVIDERS: PCP Nurse Practitioner Family; Visit Provider Internal Medicine
DX: Z00.00 Encounter for general adult medical examination without abnormal findings (principal); F41.1 Generalized anxiety disorder; M72.2 Plantar fascial fibromatosis; I82.402 Acute embolism and thrombosis of unspecified deep veins of left lower extremity
CPT/HCPCS: 99213; 99396

== ENCOUNTER 2024-02-13 08:05 | Outpatient (REF) | payer BC, SELFPAY ==
[2024-02-13 11:28] LABS: Appearance Urine Cloudy; Color Urine Yellow; Glucose Urine UA Negative (Negative); Leukocyte Esterase Urine Trace (Negative); Nitrite Urine Negative (Negative); UMIC TRIGGER UA YES; Urine Blood Negative (Negative); Urine Ketones Negative (Negative); Urine Protein Negative (Neg-Trace)
[2024-02-13 11:32] LABS: Bacteria Urine 4+ (None Seen); Hyaline Casts Urine 0-2 /LPF (0-2); RBC Urine 0-2 /HPF (0-2); Squamous Epithelial Cell Urine >20 /HPF (0-2); WBC Urine 0-5 /HPF (0-5)
[2024-02-13 12:16] LABS: Alanine Aminotransferase 12 U/L (0-31); Albumin Level 4.2 g/dL (3.5-5.0); Alkaline Phosphatase 55 U/L (39-117); Anion Gap 13 (12-20); Aspartate Amino Transferase 14 U/L (5-31); Bilirubin Direct 0.1 mg/dL (0.0-0.5); Bilirubin Total 0.3 mg/dL (0.0-1.0); Blood Urea Nitrogen 13 mg/dL (9-16); Calcium 9.3 mg/dL (8.4-10.2); Carbon Dioxide 24 mmol/L (22-29); Chloride 105 mmol/L (96-108); Cholesterol 205 mg/dL (<200); Estimated Glomerular Filt Rate > 60; Glucose Random 96 mg/dL (60-115); HDL Cholesterol 55 mg/dL (>40); LDL Cholesterol Calculated 128 mg/dL (<100); Potassium 3.9 mmol/L (3.3-5.1); Sodium 138 mmol/L (135-145); Total Protein 6.8 g/dL (6.5-8.0); Triglycerides 114 mg/dL (<150)
[2024-02-13 12:34] LABS: Thyroid Stimulating Hormone 1.98 uIU/mL (0.32-4.0)
== END 2024-02-13 08:06 | disposition home or self-care (01) ==
LOC: HO.WFDLDS 08:05
PROVIDERS: Visit Provider Internal Medicine
DX: I82.402 Acute embolism and thrombosis of unspecified deep veins of left lower extremity (principal); F41.1 Generalized anxiety disorder
CPT/HCPCS: 36415; 80048; 80061; 80076; 81001; 84443

== ENCOUNTER 2024-04-06 10:28 | Outpatient (REF) | payer BC, SELFPAY ==
--- NOTE | ~2024-04-06 | US_ITS ---
EXAMINATION: US VENOUS ULTRASOUND WITH DOPPLER LOWER EXTREMITY, LEFT CLINICAL INFORMATION: Acute embolism COMPARISON: None available. TECHNIQUE: Ultrasound of the deep veins is performed from the hip to the calf with compression sonography and color and pulse Doppler assessment. Spectral analysis with color-flow imaging is performed. FINDINGS: There is normal venous compression and respiratory variation and augmented flow. The visualized common femoral vein, superficial femoral vein, profunda femoral vein, popliteal vein, and the trifurcation region shows no evidence of deep venous thrombosis. There is no significant popliteal fossa cyst. Contralateral common femoral vein is patent. If the patient's symptoms persist, followup ultrasound in 5 days 7 days might be of value to exclude proximal propagation from a non-visualized calf vein. US/US venous duplex LE LT IMPRESSION: No DVT demonstrated in the left lower extremity.
== END 2024-04-06 10:29 | disposition home or self-care (01) ==
LOC: HO.US 10:28
PROVIDERS: PCP Internal Medicine; Visit Provider Internal Medicine
DX: Z86.718 Personal history of other venous thrombosis and embolism (principal)
CPT/HCPCS: 93971

== ENCOUNTER 2024-04-29 14:43 | Outpatient (AMB) | payer BC, SELFPAY ==
[2024-04-29 14:51] VITALS: BP 110/68; PULSE 91; O2SAT 99; BMI 29.5
--- NOTE | 2024-04-29 14:51 | MHC.PC.OV ---
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: No Allergies No Known Allergies [No Known Allergies*] Allergy (Verified 04/29/24 15:34) Medication List - Last Reconciled 04/29/24 by Raul Richardson MD albuterol sulfate 90 mcg/actuation (Ventolin HFA) 2 puffs inhalation Q4-6H PRN 30 days lorazepam 0.5 mg PO BEDTIME PRN spironolactone 25 mg PO DAILY sumatriptan succinate take 1 tab at onset of headache; if no relief may repeat 1 tab after at least 2 hrs; max = 4 tabs/24 hr PO 30 days Tobacco use date assessed: 02/12/24 Dental Screening Dental Screen Date: 10/16/23 HPI f/u DVT HPI Details 43-year-old female presents to the office to discuss her chronic medical conditions. Patient is continuing treatment for the plantar fasciitis on the left foot. She was receiving pulse shock therapy and is wearing a boot. Patient reports her symptoms are slowly improving and should should be off the boot in a few weeks. She has taken more than 6 months' worth of anticoagulants for her DVT. The Eliquis has been stopped. Patient is scheduled for liposuction surgery in July. And is wondering if she should restart her medication at the time of the surgery. Requesting a refill on the lorazepam. Patient has intermittent anxiety and 14 pills suffices her for a month. PFSH Medical History Generalized anxiety disorder Plantar fasciitis of left foot Deep vein thrombosis of left lower extremity Migraine with aura History of smoking Asthma Hyperlipidemia Encounter to establish care History of cigarette smoking Surgical History H/O liposuction of abdomen H/O abdominoplasty Previous section History of hip surgery Family History Mother Diabetes Father History of prostate cancer Social History Household Members: Spouse Household Members Other:: 3 children (one on her own) Housing: House Alcohol intake: current Alcohol intake frequency: a few times a week Patient Tobacco Use Status: Former Tobacco user Tobacco use type: Cigarette Years Smoked: pt quit 13 years ago, 1PPD e-Cigarette/Vaping Use: Currently Using Second Hand Smoke Exposure: No service: No 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al status: employed 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: [employer]/ RT handed 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al exposures/hazards: No Sexual orientation: Straight/Heterosexual Gender identity: Female Cognitive needs: No Hearing needs: No Vision needs: Yes (glasses) Questionnaire Thrive Questionnaire Date Thrive assessed: 10/16/23 AUDIT C Alcohol Use Questionnaire (AUDIT-C) 1. How often do you have a drink containing alcohol?: Monthly or less 2. How many drinks containing alcohol do you have on a typical day when you are drinking?: 1 or 2 3. How often do you have six or more drinks on one occasion?: Never Total Score: 1 CHINA-7 AMB Questionnaire CHINA-7 Date CHINA - 7 assessed: 02/12/24 Source: Developed by Drs. Tigre Hall, Misti Ashton, Albaro Bhatti and colleagues, with an educational chidi from [employer]. Physical exam (Primary Care) Vital Signs: Last Vital Signs Pulse 91 04/29/24 14:51 BP 110/68 04/29/24 14:51 Pulse Ox 99 04/29/24 14:51 Oxygen Delivery Method Room Air 04/29/24 14:51 Care Plan Goal for BP management: Blood pressure is in range. BMI result Body Mass Index 29.5 Tobacco/Smoking Status: Tobacco use Status Tobacco use date assessed 02/12/24 04/29/24 14:51 Patient Tobacco Use Status Former Tobacco user 04/29/24 14:51 Tobacco use type Cigarette 04/29/24 14:51 e-Cigarette/Vaping Use Currently Using 04/29/24 14:51 Thrive Assessment: Date of Thrive Assessment Date Thrive assessed 10/16/23 04/29/24 14:51 Const General: cooperative and healthy appearing Nutritional Appearance: well nourished Orientation/consciousness: patient oriented x3 Limitations: no limitations HENMT Head: Yes normal to inspection Eyes General: appearance normal, both eyes and all related structures Neck Neck: Yes normal visual inspection Chest Chest palpation & inspection: normal palpation of entire chest wall Resp Effort & Inspection: normal respiratory effort Neuro General: patient oriented x3 Assessment and Plan Assessment & Plan (1) Generalized anxiety disorder: Code(s): F41.1 - Generalized anxiety disorder Plan: Intermittent use of lorazepam to be continued. Prescription sent. (2) Deep vein thrombosis of left lower extremity: Code(s): I82.402 - Acute embolism and thrombosis of unspecified deep veins of left lower extremity Plan: This condition has resolved. The newer anticoagulants has been stopped. When she comes up for surgery, a preop clearance will be done. (3) Plantar fasciitis of left foot: Code(s): M72.2 - Plantar fascial fibromatosis Plan: Thankfully this condition is improving. Continue current management. (4) Hyperlipidemia: Code(s): E78.5 - Hyperlipidemia, unspecified Plan: Fasting blood work has been requested. Will call with the results. Medications: Refilled lorazepam 0.5 mg PO BEDTIME PRN 14 tabs 0RF anxiety F41.9 - Anxiety disorder, unspecified Discontinued fluticasone propionate 44 mcg/actuation (Flovent HFA) Discontinued Reason: Doctor's Order 2 puffs inhalation BID 10.6 grams 0RF J45.909 - Unspecified asthma, uncomplicated apixaban (Eliquis) Discontinued Reason: Doctor's Order 2.5 mg PO BID 60 tabs 1RF diclofenac sodium 3% Discontinued Reason: Doctor's Order 1 appl topical BID 100 grams 1RF Coding Level of Care Code Est Pt Level 4 (37323) Complex EM visit Add On G2211 Diagnoses Generalized anxiety disorder F41.1 Deep vein thrombosis of left lower extremity I82.402 Plantar fasciitis of left foot M72.2 Hyperlipidemia E78.5
== END 2024-04-29 15:50 | disposition home or self-care (01) ==
PROVIDERS: PCP Internal Medicine; Visit Provider Internal Medicine
DX: F41.1 Generalized anxiety disorder (principal); I82.402 Acute embolism and thrombosis of unspecified deep veins of left lower extremity; M72.2 Plantar fascial fibromatosis; E78.5 Hyperlipidemia, unspecified
CPT/HCPCS: 99214

== ENCOUNTER 2024-06-22 07:59 | Outpatient (REF) | payer BC, SELFPAY ==
[2024-06-22 10:54] LABS: Appearance Urine Cloudy; Color Urine Yellow; Glucose Urine UA Negative (Negative); Leukocyte Esterase Urine Small (1+) (Negative); Nitrite Urine Negative (Negative); PH 5.5 (5.0-9.0); UMIC TRIGGER UA YES; Urine Blood Negative (Negative); Urine Ketones Negative (Negative); Urine Protein Negative (Neg-Trace)
[2024-06-22 11:02] LABS: Hematocrit 41.1 % (37.0-47.0); Hemoglobin 13.9 g/dl (12.0-16.0); Mean Corpuscular HGB Conc 33.8 g/dl (31.0-35.0); Mean Corpuscular Hemoglobin 30.8 pg (27.0-33.0); Mean Corpuscular Volume 91.1 fL (80.0-98.0); Mean Platelet Volume 11.1 fL (9.4-12.3); Platelet Count 227 X10*3/uL (160-400); Red Blood Count 4.51 X10*6/uL (4.20-5.50); Red Cell Distribution Width 13.7 % (11.0-16.0); White Blood Count 7.2 X10*3/uL (4.8-10.8)
[2024-06-22 11:11] LABS: Bacteria Urine 4+ (None Seen); Hyaline Casts Urine 0-2 /LPF (0-2); RBC Urine 0-2 /HPF (0-2); Squamous Epithelial Cell Urine >20 /HPF (0-2)
[2024-06-22 11:35] LABS: Albumin Level 4.3 g/dL (3.5-5.0); Alkaline Phosphatase 58 U/L (39-117); Anion Gap 11 (12-20); Aspartate Amino Transferase 14 U/L (5-31); Bilirubin Direct 0.2 mg/dL (0.0-0.5); Bilirubin Total 0.5 mg/dL (0.0-1.0); Blood Urea Nitrogen 12 mg/dL (9-16); Calcium 9.2 mg/dL (8.4-10.2); Carbon Dioxide 25 mmol/L (22-29); Chloride 106 mmol/L (96-108); Cholesterol 206 mg/dL (<200); Estimated Glomerular Filt Rate > 60; Glucose Random 83 mg/dL (60-115); HDL Cholesterol 59 mg/dL (>40); LDL Cholesterol Calculated 125 mg/dL (<100); Sodium 138 mmol/L (135-145); Total Protein 6.9 g/dL (6.5-8.0); Triglycerides 110 mg/dL (<150)
[2024-06-22 11:42] LABS: Thyroid Stimulating Hormone 1.42 uIU/mL (0.32-4.0)
[2024-06-22 11:57] LABS: Alanine Aminotransferase 11 U/L (0-31)
== END 2024-06-22 08:00 | disposition home or self-care (01) ==
LOC: HO.WFDLDS 07:59
PROVIDERS: Visit Provider Internal Medicine
DX: I82.402 Acute embolism and thrombosis of unspecified deep veins of left lower extremity (principal); M79.672 Pain in left foot; G89.29 Other chronic pain; E78.5 Hyperlipidemia, unspecified
CPT/HCPCS: 36415; 80048; 80061; 80076; 81001; 84443; 85027

== ENCOUNTER 2024-07-07 08:44 | Outpatient (AMB) | payer BC, SELFPAY ==
--- NOTE | 2024-07-07 08:49 | MHC.PC.OV ---
Vital Signs 07/07/24 08:50 Height 5 ft 6 in Weight 177 lb BMI 28.6 BP 110/64 Blood Pressure Location Lt brachial Position Sitting Pulse 95 Pulse Source Pulse Oximeter Pulse Oximetry (%) 94 Oxygen Delivery Method Room Air Intake Visit Reasons: Pre-op Lipo 07/424 Intake Note: Patient is here for a Pre-op for Lipo scheduled with Dr Hanna ([phone]) on 07/19/24. Special Needs Librarian Required: No Behavioral Health Specialist: Not Required per policy Accompanied by: Self / Same As Patient Allergies No Known Allergies [No Known Allergies*] Allergy (Verified 07/07/24 12:31) Medication List - Last Reconciled 07/07/24 by Raul Richardson MD albuterol sulfate 90 mcg/actuation (Ventolin HFA) 2 puffs inhalation Q4-6H PRN 30 days lorazepam 0.5 mg PO BEDTIME PRN spironolactone 25 mg PO DAILY sumatriptan succinate take 1 tab at onset of headache; if no relief may repeat 1 tab after at least 2 hrs; max = 4 tabs/24 hr PO 30 days Tobacco use date assessed: 07/07/24 Dental Screening Dental Screen Date: 10/16/23 HPI Pre-op Lipo 07/424 HPI Details 43-year-old female presents to the office for a preop clearance. Patient is scheduled for liposuction. The last procedure was done in September which was complicated with deep vein thrombosis. Patient took 6 months anticoagulation. Subsequent ultrasound is clear. She would like to get this elective procedure done. PFSH Medical History Generalized anxiety disorder Plantar fasciitis of left foot Deep vein thrombosis of left lower extremity Migraine with aura History of smoking Asthma Hyperlipidemia Encounter to establish care History of cigarette smoking Surgical History H/O liposuction of abdomen H/O abdominoplasty Previous section History of hip surgery Family History Mother Diabetes Father History of prostate cancer Social History Household Members: Spouse Household Members Other:: 3 children (one on her own) Housing: House Alcohol intake: current Alcohol intake frequency: a few times a week Patient Tobacco Use Status: Former Tobacco user Tobacco use type: Cigarette Years Smoked: pt quit 13 years ago, 1PPD e-Cigarette/Vaping Use: Former Use Second Hand Smoke Exposure: No service: No 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al status: employed 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 How many drinks containing alcohol do you have on a typical day when you are drinking?: 3 or 4 3. How often do you have six or more drinks on one occasion?: Less than monthly Total Score: 2 CHINA-7 AMB Questionnaire CHINA-7 Date CHINA - 7 assessed: 02/12/24 Source: Developed by Drs. Tigre Hall, Misti Ashton, Albaro Bhatti and colleagues, with an educational chidi from [employer]. Physical exam (Primary Care) Vital Signs: Last Vital Signs Pulse 95 07/07/24 08:50 BP 110/64 07/07/24 08:50 Pulse Ox 94 07/07/24 08:50 Oxygen Delivery Method Room Air 07/07/24 08:50 BMI result Body Mass Index 28.6 Tobacco/Smoking Status: Tobacco use Status Tobacco use date assessed 07/07/24 07/07/24 08:54 Patient Tobacco Use Status Former Tobacco user 07/07/24 08:54 Tobacco use type Cigarette 07/07/24 08:54 e-Cigarette/Vaping Use Former Use 07/07/24 08:54 Thrive Assessment: Date of Thrive Assessment Date Thrive assessed 10/16/23 07/07/24 08:54 Const General: cooperative and healthy appearing Nutritional Appearance: well nourished Orientation/consciousness: patient oriented x3 Limitations: no limitations HENMT Head: Yes normal to inspection Eyes General: appearance normal, both eyes and all related structures Neck Neck: Yes normal visual inspection Chest Chest palpation & inspection: normal palpation of entire chest wall Resp Effort & Inspection: normal respiratory effort Neuro General: patient oriented x3 Office Procedures Flu Questionnaire Does the patient have a severe egg allergy?: No Does the patient have severe life threatening allergies?: No Does the patient have a fever or illness today?: No Has the patient ever had Guillain-Obion Syndrome?: No Has the patient ever had any past reaction to a flu shot?: No Immunizations Fluarix Triv [id number] (PF) 45 mcg (15 mcg x 3)/0.5 mL IM syringe Performing Provider: Raul Richardson MD Performing Location: [facility] [place] [facility] Administered by: Suma Martínez LPN on 07/07/24 09:36 Dose Route Admin Location Dispensed Lot Number Expiration Date NDC Private Secretary 0.5 mL IM Left Deltoid 0.5 mL [id number] 03/14/25 96208-246-24 [email or web address] VIS Given Date VIS Provided VIS Publication Date 07/07/24 Single Vaccine 21 Eligibility Eligibility Date Funding Source Not [facility] Eligible 07/07/24 Private Coding Level of Care Code Est Pt Level 4 (97996) Complex EM visit Add On G2211 Diagnoses Preoperative clearance Z01.818 Assessment & Plan Assessment & Plan (1) Preoperative clearance: Code(s): Z01.818 - Encounter for other preprocedural examination Plan: Blood work reviewed. Proceed to surgery and postop care including DVT prophylaxis as per the surgeon. Patient was advised that she has an increased risk of recurrent DVT. Orders: Orders Influenza [id number] Immunization Today Z23 - Encounter for immunization
[2024-07-07 08:50] VITALS: BP 110/64; PULSE 95; O2SAT 94; BMI 28.6
== END 2024-07-07 09:54 | disposition home or self-care (01) ==
PROVIDERS: PCP Internal Medicine; Visit Provider Internal Medicine
DX: Z23 Encounter for immunization (principal); Z01.818 Encounter for other preprocedural examination

== ENCOUNTER → 2024-07-07 08:44 | Outpatient (BNVA) | payer BC, SELFPAY | PROVIDERS: PCP Internal Medicine; Visit Provider Internal Medicine | DX: Z01.818 Encounter for other preprocedural examination (principal); Z23 Encounter for immunization | CPT/HCPCS: 90471; 90656 ==

== ENCOUNTER 2024-08-19 14:56 | Outpatient (AMB) | payer BC, SELFPAY ==
--- NOTE | 2024-08-19 15:04 | MHC.PC.OV ---
Vital Signs 08/19/24 15:05 Height 5 ft 6 in Weight 181 lb BMI 29.2 BP 110/68 Blood Pressure Location Lt brachial Position Sitting Pulse 90 Pulse Source Pulse Oximeter Pulse Oximetry (%) 98 Oxygen Delivery Method Room Air Intake Visit Reasons: 6mth f/u Intake Note: Patient is here to follow up on HLD, Asthma. Bulk Mail Technician Required: No Securities And Real Estate Director: Not Required per policy Accompanied by: Self / Same As Patient Allergies No Known Allergies [No Known Allergies*] Allergy (Verified 08/19/24 15:33) Medication List - Last Reconciled 08/19/24 by Zoila Mendez PA-C albuterol sulfate 90 mcg/actuation (Ventolin HFA) 2 puffs inhalation Q4-6H PRN 30 days lorazepam 0.5 mg PO BEDTIME PRN spironolactone 25 mg PO DAILY sumatriptan succinate take 1 tab at onset of headache; if no relief may repeat 1 tab after at least 2 hrs; max = 4 tabs/24 hr PO 30 days Tobacco use date assessed: 08/19/24 Dental Screening Dental Screen Date: 10/16/23 [facility] Medical History Nicotine dependence due to vaping tobacco product Nicotine dependence Screening for human papillomavirus (HPV) (~12/2022) Hx of mammogram (~11/2023) Generalized anxiety disorder Plantar fasciitis of left foot Deep vein thrombosis of left lower extremity Migraine with aura History of smoking Asthma Hyperlipidemia Encounter to establish care History of cigarette smoking Surgical History (Updated 08/19/24 @ 15:08 by CARMEN Leblanc) H/O liposuction of abdomen H/O abdominoplasty Previous section History of hip surgery Family History Mother Diabetes Father History of prostate cancer Social History (Updated 08/19/24 @ 15:08 by CARMEN Leblanc) Household Members: Spouse Household Members Other:: 3 children (one on her own) Housing: House Alcohol intake: current Alcohol intake frequency: a few times a week Patient Tobacco Use Status: Former Tobacco user Tobacco use type: Cigarette Years Smoked: pt quit 13 years ago, 1PPD e-Cigarette/Vaping Use: Currently Using Frequency of e-Cigarette/Vaping Use: Daily Second Hand Smoke Exposure: No service: No 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al status: employed 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 Tigre Hall, Misti Ashton, Albaro Bhatti and colleagues, with an educational chidi from [employer]. Physical exam (Primary Care) Vital Signs: Last Vital Signs Pulse 90 08/19/24 15:05 BP 110/68 08/19/24 15:05 Pulse Ox 98 08/19/24 15:05 Oxygen Delivery Method Room Air 08/19/24 15:05 BMI result Body Mass Index 29.2 Tobacco/Smoking Status: Tobacco use Status Tobacco use date assessed 08/19/24 08/19/24 15:09 Patient Tobacco Use Status Former Tobacco user 08/19/24 15:09 Tobacco use type Cigarette 08/19/24 15:09 e-Cigarette/Vaping Use Currently Using 08/19/24 15:09 Thrive Assessment: Date of Thrive Assessment Date Thrive assessed 10/16/23 08/19/24 15:09 Coding Level of Care Code Est Pt Level 4 (18908) Complex EM visit Add On G2211 Diagnoses Nicotine dependence F17.200 Deep vein thrombosis of left lower extremity I82.402 Assessment & Plan Assessment & Plan (1) Nicotine dependence: Code(s): F17.200 - Nicotine dependence, unspecified, uncomplicated Category: Medical Plan: We spent over 15 minutes discussing smoking cessation. Patient will try gum, lozenges. She will get rid of her vape. We will start patient on Wellbutrin at 150 mg once daily; increase to twice daily as advised if tolerated; See below (2) Deep vein thrombosis of left lower extremity: Code(s): I82.402 - Acute embolism and thrombosis of unspecified deep veins of left lower extremity Category: Medical Plan: DVT resolve. Patient took 6 months of Eliquis. DVT developed after tummy tuck in September. Patient now status post tummy tuck in July. Denies any leg pains. No additional imaging indicated at this time. Medications: Refilled lorazepam 0.5 mg PO BEDTIME PRN 14 tabs 0RF anxiety F41.9 - Anxiety disorder, unspecified Scribe Plan - Not visible on output: History of Present Illness The patient is a 43-year-old female presenting with a six-month follow-up for a previous diagnosis of Deep Venous Thrombosis (DVT) and for evaluation and management of nicotine addiction through vaping and request assistance with smoking cessation. The patient completed her course of Eliquis approximately six months prior, which she had been taking following a blood clot discovered after a tummy tuck surgery. Subsequently, she underwent liposuction on July 19, 2023, without complications, at the [facility] in [place], performed by Dr. Koroma. Since ceasing Eliquis, the patient reports no recurrence of leg pain or symptoms such as chest pain, shortness of breath, or fatigue. The surgical site remains tender and swollen, but there are no complications reported. The patient also has a history of vaping, which she began after quitting cigarette smoking following hip surgery. She has used e-cigarettes for approximately 13 years since cessation of traditional smoking. The patient expressed difficulty quitting vaping on her own using patches and gum. She is considering a pharmacologic approach such as Wellbutrin to aid cessation. The patient also mentioned a diagnosis of asthma, attributed to vaping, diagnosed about a year ago, but reports no significant breathing difficulties requiring interventions. She reports vaping nicotine as her primary method of consumption. In the past, she has attempted various nicotine replacement therapies, including patches, gum, and lozenges, with the last usage being approximately two months ago. She admits to a lack of compliance with the tapering process for nicotine patches and has continued to vape intermittently while using these aids. She has never tried medication like Wellbutrin or participated in a formal smoking cessation program, except during an incident in high school. Previously, she successfully quit vaping for four months with the aid of an Nabil Harris book and nicotine replacement products but eventually resumed. The patient identifies habitual smoking cues, such as [id number] actions, and the challenge of breaking the vaping habit. She is aware of the importance of maintaining a tobacco-free environment, intending to limit access by not keeping vaping products easily accessible. Social History - Nicotine dependence with previous attempts to quit using nicotine replacement therapies. - No current exposure to tobacco at home. - No smoking or tobacco use among coworkers. - History of a brief involvement in a smoking cessation program during high school. - Uses a refillable vaping device with high-dose nicotine daily, switching from cigarette smoking around 13 years ago. - Reports drinking socially on weekends. - Denies recreational drug use and does not consume alcohol excessively. Review of Systems - Psychiatric: Reports agitation when unable to vape. - Respiratory: Denies new wheezing; reports occasional coughing and nasal congestion post a viral illness. - Gastrointestinal: Denies abdominal pain apart from tenderness at surgical sites, normal bowel movements post-procedure. - Ear/Nose/Throat: Denies current sore throat; reports previous white spots on tonsils but resolved. Physical Exam Appearance: Alert. Oriented X3. No acute distress. Head: Normal external exam. Normocephalic. Atraumatic. Eyes: Pupils are equal, round, and reactive to light. Extraocular movements intact. Conjunctiva and sclera normal. Eyelids normal. Ears: External auditory canal normal. Tympanic membranes normal. Ears look good. No fluid noted. Throat: Pharynx normal. Uvula midline. Moist mucous membranes. No trismus noted. No drooling noted. No muffled voice noted. No white dots on tonsils currently. Neck: Normal inspection. Neck supple. Full range of motion. No adenopathy. Thyroid Normal. No meningeal signs. No neck mass noted. Cardiovascular: Normal heart rate and rhythm. Heart sound normal. No murmurs noted. Pulses normal throughout. Respiratory: No respiratory distress. Painless inspiration. Breath sounds normal. No wheezes/rales/rhonchi noted. Chest nontender. No accessory muscle usage noted or decreased air movement noted. Abdomen: Soft and nontender except for surgical areas. No distention noted. No organomegaly noted. No visible injury noted. Surgical incisions healing well. Back: Full range of motion noted. Skin: Skin warm and dry. Normal skin color. Normal skin turgor. No rashes/lesions/lacerations noted. Extremities: No lower extremity edema. Extremities exhibit normal range of motion. Extremities nontender. Neuro: Oriented X 3. No motor deficit. No sensory deficit. Reflexes normal. Plan - Nicotine Dependence: Initiate bupropion Wellbutrin) treatment starting at 150 mg once daily, with plans to increase to twice daily as tolerated. Discussed that this medication may also aid in reducing depressive symptoms associated with nicotine withdrawal. - Address potential weight gain related to medication and smoking cessation, with the recommendation to monitor weight changes and maintain healthy dietary habits. - Deep Venous Thrombosis: Continue monitoring post-anticoagulation phase; no further anticoagulation as there are no symptoms indicative of recurrence. - Nicotine Addiction Vaping): Discussed considering pharmacotherapy with Bupropion Wellbutrin) as an adjunct to cessation efforts; current use of nicotine replacement therapies has been ineffective. - Asthma: Continued assessment advised; consider pulmonary function testing if symptoms exacerbate. - Post-Surgery Care: Monitor surgical sites for any complications; ensure adequate follow-up with the surgical team as organized. Patient was informed and verbally consented to the use of an ambient scribe for clinic note documentation during this visit. Discussion Notes I discussed the challenges of nicotine dependence, emphasizing the importance of an active process in smoking cessation. The patient was advised that Wellbutrin may help reduce nicotine cravings by affecting certain brain receptors. I highlighted the need to break habitual vaping patterns and recommended strategies to avoid carrying vaping devices and keeping them inaccessible. We discussed the significance of avoiding an environment where tobacco is present and not relying on nicotine as a reward or stress-relief mechanism. The patient was informed about potential weight gain with both the medication and cessation process and advised to maintain a scale at home. I underscored the normalcy of setbacks during cessation and the importance of resuming efforts without self-judgment. The patient understood the plan and agreed to follow the recommendations. I provided reassurance that potential failure at times is a part of the process and encouraged persistence. I discussed with the patient the completion of her anticoagulation treatment for DVT and the lack of any current symptoms suggesting recurrence. The patient's primary concern was nicotine addiction through vaping. We deliberated on the use of pharmacological support in the form of Bupropion to assist with nicotine cessation, considering past failures with nicotine patches and gum. The patient seemed receptive to exploring this pharmacotherapy option. We also reviewed her asthma diagnosis, which is stable currently, and advised vigilance for any exacerbations. Post-surgical recovery is progressing well with appropriate follow-up scheduled. Patient Instructions - Start Wellbutrin at 150 mg once daily; increase to twice daily as advised if tolerated. - Avoid keeping vaping devices readily accessible; make them difficult to access. - Monitor weight regularly and maintain a healthy diet. - Practice mindfulness and strategize daily to avoid vaping, focusing on alternative hand-occupying activities. - Acknowledge and learn from any setbacks, resuming cessation efforts promptly. - Consider the use of Bupropion to aid in nicotine cessation; all risks and benefits should be discussed during the next visit. - Monitor for any signs of recurrent DVT such as leg pain or swelling. - Follow up as planned with the surgical team to ensure continued healing and address any concerns. - Maintain vigilance for any asthmatic symptoms and prepare for further assessment if symptoms arise. - Reduce and eventually cease vaping as planned, possibly utilizing the new anti-nicotine strategy.
[2024-08-19 15:05] VITALS: BP 110/68; PULSE 90; O2SAT 98; BMI 29.2
== END 2024-08-19 16:10 | disposition home or self-care (01) ==
PROVIDERS: PCP Internal Medicine; Visit Provider Internal Medicine
DX: F17.200 Nicotine dependence, unspecified, uncomplicated (principal); I82.402 Acute embolism and thrombosis of unspecified deep veins of left lower extremity

== ENCOUNTER 2024-08-24 08:56 | Outpatient (AMB) | payer BC, SELFPAY ==
--- NOTE | 2024-08-24 08:57 | A.OFFPC_ITS ---
Intake Visit Reasons: Cough and Right ear clogged Intake Note: Patient is here to follow up on Cough, and right ear clogged. 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: No Crm Technical Lead: Not Required per policy Accompanied by: Self / Same As Patient Allergies No Known Allergies [No Known Allergies*] Allergy (Verified 08/24/24 09:44) Medication List - Last Reconciled 08/24/24 by Raul Richardsno MD albuterol sulfate 90 mcg/actuation (Ventolin HFA) 2 puffs inhalation Q4-6H PRN 30 days azithromycin take 500 mg today (day 1), then 250 mg for 4 days (days 2-5) PO bupropion HCl XL (Wellbutrin XL) 150 mg PO QAM lorazepam 0.5 mg PO BEDTIME PRN spironolactone 25 mg PO DAILY sumatriptan succinate take 1 tab at onset of headache; if no relief may repeat 1 tab after at least 2 hrs; max = 4 tabs/24 hr PO 30 days Tobacco use date assessed: 08/24/24 Dental Screening Dental Screen Date: 10/16/23 HPI Cough and Right ear clogged HPI Details 43-year-old female wishes to discuss her medical health via tele health. Reporting symptoms of sinus congestion, sore throat and difficulty swallowing. Low-grade fever. No family member is sick. No recent travel. Patient reports symptoms of malaise and fatigue. In addition, patient wishes to discuss the medications started last week for nicotine cessation. She would like to know the exact dosage on the Wellbutrin and if she can use a patch at the same time. Patient is starting to use lower strength on her vape. She is also requesting a refill on her lorazepam. [facility] Medical History Nicotine dependence due to vaping tobacco product Nicotine dependence Screening for human papillomavirus (HPV) (~12/2022) Hx of mammogram (~11/2023) Generalized anxiety disorder Plantar fasciitis of left foot Deep vein thrombosis of left lower extremity Migraine with aura History of smoking Asthma Hyperlipidemia Encounter to establish care History of cigarette smoking Surgical History H/O liposuction of abdomen H/O abdominoplasty Previous section History of hip surgery Family History Mother Diabetes Father History of prostate cancer Social History Household Members: Spouse Household Members Other:: 3 children (one on her own) Housing: House Alcohol intake: current Alcohol intake frequency: a few times a week Patient Tobacco Use Status: Former Tobacco user Tobacco use type: Cigarette Years Smoked: pt quit 13 years ago, 1PPD e-Cigarette/Vaping Use: Former Use Second Hand Smoke Exposure: No service: No 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al status: employed 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 Tigre Hall, Misti Ashton, Albaro Bhatti and colleagues, with an educational chidi from [employer]. Physical exam (Primary Care) Tobacco/Smoking Status: Tobacco use Status Tobacco use date assessed 08/24/24 08/24/24 08:58 Patient Tobacco Use Status Former Tobacco user 08/24/24 08:58 Tobacco use type Cigarette 08/24/24 08:58 e-Cigarette/Vaping Use Former Use 08/24/24 08:58 Thrive Assessment: Date of Thrive Assessment Date Thrive assessed 10/16/23 08/24/24 08:58 Telehealth Telehealth Telehealth Platform: [facility] Location of provider rendering services: practice address Location of patient: address on file Patient Identification confirmed using: Name, : Yes Telehealth method: voice only Patient verbally consented to treatment: Yes Patient verbally consented to billing insurance company: Yes Patient informed of any privacy concerns related to visit: Yes Minutes spent on Phone/Video with Pt.: 15 Coding Level of Care Code Tele Est Pt Level 4 (58010) Complex EM visit Add On G2211 Diagnoses Nicotine dependence due to vaping tobacco product F17.290 Anxiety F41.9 Upper respiratory tract infection J06.9 Assessment & Plan Assessment & Plan (1) Nicotine dependence due to vaping tobacco product: Code(s): F17.290 - Nicotine dependence, other tobacco product, uncomplicated Category: Social Hx Plan: Patient was informed to use Wellbutrin 150 mg twice a day. If she is having side effects, she can reduce the Wellbutrin 150 mg once a day. Side effects to watch for includes dry mouth and headaches. Patient was encouraged to use a patch in addition to the Wellbutrin as she is trying to quit smoking. Antibiotics ordered. Increase fluid intake. Tylenol for aches and pains. If symptoms worsen, follow-up here for a recheck. Lorazepam was ordered. (2) Anxiety: Code(s): F41.9 - Anxiety disorder, unspecified Category: Medical Plan: Lorazepam was ordered. (3) Upper respiratory tract infection: Code(s): J06.9 - Acute upper respiratory infection, unspecified Plan: Antibiotics ordered. Increase fluid intake. Tylenol for aches and pains. If symptoms worsen, follow-up here for a recheck. Medications: New azithromycin take 500 mg today (day 1), then 250 mg for 4 days (days 2-5) PO 6 tabs 0RF Refilled lorazepam 0.5 mg PO BEDTIME PRN 14 tabs 0RF anxiety F41.9 - Anxiety disorder, unspecified
== END 2024-08-24 12:32 | disposition home or self-care (01) ==
LOC: HO.HMCH 08:56
PROVIDERS: PCP Internal Medicine; Visit Provider Internal Medicine
DX: J06.9 Acute upper respiratory infection, unspecified (principal); F17.290 Nicotine dependence, other tobacco product, uncomplicated; F41.9 Anxiety disorder, unspecified

== ENCOUNTER → 2024-08-24 08:56 | Outpatient (BNVA) | payer BC, SELFPAY | PROVIDERS: PCP Internal Medicine; Visit Provider Internal Medicine ==

== ENCOUNTER 2024-11-03 12:32 | Outpatient (REF) | payer SELFPAY ==
--- OUTSIDE RECORDS SUMMARY | 2024-11-03 12:50 | XMS_ITS ---
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 Generated for Servandoi ike/Era/eTransmitting on:?11/03/2024 12:50 PM EST
--- OUTSIDE RECORDS SUMMARY | 2024-11-03 12:50 | XMS_ITS | Clinical Summary ---
Author Organization [facility] ity Address [address] [place] [address] Care Team Providers Care In House Counsel Name Role Phone Ilene Mckeon MD Primary Care Provider Allergies No known active allergies Medications LORazepam (ATIVAN) 0.5 mg tablet Take 1 Tablet by mouth daily as needed for Anxiety. 2 Active amoxicillin (AMOXIL) 500 mg capsule 1 Active amoxicillin (AMOXIL) 500 mg capsule amoxicillin 500 mg capsule Take 4 capsule(s) 1hr prior to dental work Active omeprazole (PriLOSEC) [address] capsule omeprazole 20 mg capsule,delayed release Active diclofenac (CATAFLAM) 50 mg tablet 1 Active nicotine (NICOTROL) 10 mg inhaler Inhale 1 Puff into the lungs as needed for Smoking cessation. 6-16 cartridges a day 1 Active IBUPROFEN ORAL Take by mouth. 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 second child was born, used ativan (tried antidepressants but states didn't work out for her) saw therapist and psychiatrist in the past, none currently Hip dysplasia, congenital 11/30/2009 Otalgia 09/10/2005 Overview (09/13/2024): Immunizations Name Administration Dates Next Due HPV, Quadrivalent 10/21/2008,06/20/2008,04/18/20 08 Influenza Quadravalent, MDCK , 0.5ml, preservative free (Flucelvax) 6mo and older 05/29/2021,07/19/2020,07/06/2018 Influenza trivalent, 0.5mL, preservative free (Fluarix; FluLaval; Fluzone) ages 6mo and older (Afluria) 3 years and older 07/07/2015 Influenza trivalent, with pr eservative (Fluzone; Afluria) 6mo and older 06/22/2019,09/27/2016 [employer] SARS-CoV-2 COVID-19, mRNA, LNP-S, preservative free 01/02/2021,12/11/2020 Td, Unspecified 03/21/2004 Tdap Tetanus diptheria acell ular pertussis (Boostrix; Adacel) 7yo and older 04/14/2020,11/09/2015,10/01/2012 Surgical History Surgery Date Site/Laterality Comments OTHER SURGICAL HISTORY PROCEDURE: PERIACETABULAR OSTEOTOMY; COMMENT: left in 12/2009 and right in 03/2010 OTHER SURGICAL HISTORY PROCEDURE: [place] REVJ TOT HIP ARTHRP BTH W/WO AGRFT/ALGRFT; COMMENT: arthroscopic (right hip) 08/2011 OTHER SURGICAL HISTORY Right PROCEDURE: [place] ARTHRP ACETBLR/PROX FEM PROSTC AGRFT/ALGRFT; COMMENT: 02/10/2015 SECTION 11/2015, 05/2020 PROCEDURE: HISTORICAL DELIVERY Medical History Medical History Date Comments Otalgia, unspecified 09/10/2005 DX:Otalgia, unspecified Pain in joint, lower leg 09/10/2005 DX:Pain in joint, lower leg Hip dysplasia, congenital 11/30/2009 DX:Hip dysplasia, congenital Pain in joint, ankle and foot 08/19/2006 DX :Pain in joint, ankle and foot Osteoarthritis DX:Osteoarthriti s Chronic hip pain DX:Chronic hip pain Family History Medical History Relation Name Comments No Known Problems Brother No Known Problems Daughter 1 Emily No Known Problems Daughter 2 Calise No Known Problems Daughter 3 Lawton Prostate cancer Father Stroke Maternal Grandfather Diabetes Maternal Grandmother Diabetes Mother No Known Problems Paternal Grandfather No Known Problems Paternal Grandmother No Known Problems Sister Breast cancer Neg Hx Colon cancer Neg Hx Ovarian cancer Neg Hx Uterine cancer Neg Hx Relation Name Status Comments Brother Alive Daughter 1 Emily Alive Daughter 2 Calise Alive Daughter 3 [place] Alive Father Alive prostate cancer Maternal Grandfather Maternal Grandmother Mother Alive Paternal Grandfather Paternal Grandmother Sister Alive Social History Tobacco Use Types Packs/Day Years Used Date Smoking Tobacco: Former Cigarettes Q uit: 06/15/2009 Smokeless Tobacco: Never Alcohol Use Standard Drinks/Week Comments No 2.5 (1 standard drink = 0.6 oz p ure alcohol) Comments Unknown Sex and Gender Information Value Date Recorded Sex Assigned at Not on file Legal Sex Female 12:30 AM EST Gender Identity Not on file Sexual Orientation Not on file Obstetrics History Plan of Treatment Health Maintenance Due Date Last Done Comments Hepatitis B Vaccines (1 of 3 - 19+ 3-dose series) 2000 Depression Screening 08/24/2022 Social Influencers of Health Screening 08/24/2022 Cervical Cancer Screening: HPV 05/15/2023 05/15/2018 Breast Cancer Screening 11/08/2023 11/08/2021 COVID-19 Vaccine ( season) 2024 01/02/2021, 12/11/2020 Influenza Vaccine (#1) 2024 , 07/19/2020, 06/22/2019, Additional history exists Cholesterol Screening (Lipid Panel) 05/29/2026 05/29/2021 DTaP,Tdap,and Td Vaccines (5 - Td or Tdap) 04/14/2030 04/14/2020, 11/09/2015, 10/01/2012, Additional history exists HPV Vaccines Completed 10/21/2008, 02/2008, 04/18/2008 HIV Screening Completed 11/16/2019 Hepatitis C Screening Completed 11/16/2019 HIB Vaccines Aged Out No longer eligi ble based on patient's age to complete this topic Hepatitis A Vaccines Aged Out No long er eligible based on patient's age to complete this topic IPV Vaccines Aged Out No longer eligi ble based on patient's age to complete this topic MMR Vaccines Aged Out No longer eligi ble based on patient's age to complete this topic Meningococcal ACWY Vaccine Aged Out N o longer eligible based on patient's age to complete this topic Meningococcal B Vacine Aged Out No lo nger eligible based on patient's age to complete this topic Pneumococcal Vaccine: Pediatrics (0 to 5 Years) and At-Risk Patients (6 to 64 Years) Aged Out No longer eligible based on patient's age to complete this topic RSV Immunization Patients Under 20 months Aged Out No longer eligible based on patient's age to complete this topic Varicella Vaccines Aged Out No longer eligible based on patient's age to complete this topic Procedures Procedure Name Priority Date/Time Associated Diagnosis Comments SCREENING MAMMOGRAPHY BI 2-VIEW BREAST INC CAD Routine 11/08/2021 3:44 PM EST Encounter for screening mammogram for malignant neoplasm of breast LIPID PANEL Routine 05/29/2021 HEPATITIS C SCREENING Routine 11/16/2019 HIV SCREENING Routine 11/16/2019 HPV Routine 05/15/2018 from Last 3 Months or Most Recently Relevant to Health Maintenance Results * SCREENING MAMMOGRAPHY BI 2-VIEW BREAST INC CAD (11/08/2021 3:44 PM EST) Anatomical Region Laterality Modality Radiographic Maria Victoria ging 11/06/2021 11:1 3 AM EST Narrative 11/12/2021 8:28 AM EST This is a summary report. The complete report is available in the patient's medical record. If you cannot access the medical record, please contact the sending organization for a detailed fax or copy. Exam: Screening mammogram Findings: Digital bilateral full-field screening mammography is performed with tomosynthesis and interpreted with the aid of computer-aided detection. ??This is a baseline exam. Breast parenchyma is composed of scattered fibroglandular densities. ??Intramammary lymph nodes in the upper outer left breast. No suspicious mass, architectural distortion, or suspicious calcifications. Impression: No mammographic evidence of malignancy. BI-RADS 2-benign Procedure Note Samreen Bernabe MD - 09/03/2022 This is a summary report. The complete report is available in thepatient's medical record. If you cannot access the medical record, pleasecontact the sending organization for a detailed fax or copy. Exam: Screening mammogram Findings: Digital bilateral full-field screening mammography is performedwith tomosynthesis and interpreted with the aid of computer-aideddetection. This is a baseline exam. Breast parenchyma is composed of scattered fibroglandular densities.Intramammary lymph nodes in the upper outer left breast. No suspiciousmass, architectural distortion, or suspicious calcifications. Impression: No mammographic evidence of malignancy. BI-RADS 2-benign Result [facility] Laure Domingo MD IMG XR PROCEDURES Final Re sult * (ABNORMAL) Lipid panel (05/29/2021) [facility] LDL/HDL Ratio 4 0 - 4 Triglycerides 133 0 - 150 mg/dL Cholesterol 248(A) 0 - 200 mg/dL HDL 65 >=40 mg/dL LDL Cholesterol 157(A) 0 - 100 mg/dL Blood Venous blood specimen / Unknown Result [facility] Provider LAB BLOOD ORDERABLES Claudette l Result * HIV Screening (11/16/2019) [facility] HIV Screening abstracted Result [facility] Provider HEALTH MAINTENANCE Final Result * Hepatitis C Screening (11/16/2019) [facility] Hepatitis C Screening abstracted Result [facility] Provider HEALTH MAINTENANCE Final Result * Cervical Cancer Screening: HPV (05/15/2018) [facility] Cervical Cancer Screening: HPV negative, abstracted Result [facility] Provider HEALTH MAINTENANCE Final Result from Last 3 Months or Most Recently Relevant to Health Maintenance Care Teams In House Counsel Relationship Specialty Start Date End Date Ilene Mckeon MD PCP - General Internal Medicine 05/09/22
--- OUTSIDE RECORDS SUMMARY | 2024-11-03 12:50 | XMS_ITS | Patient Health Record ---
Author Organization [facility] Address [address] [place] [address] Care Team Providers Care Account Contact Associate Name Role Phone Kari Walter Primary Care Provider Meka Henderson Unavailable [phone] Allergies No Known Allergies Reason For Referral No Information Medications Medication SIG (Take, Route, Fr equency, Duration) Notes Start Date End Date Status Omeprazole Active Motrin Active [employer] as directed 05/22/2023 Active Social History Tobacco Use: Social History Observation Description Date Details (start date - stop date) Former Smoker NA - NA Tobacco Use/Smoking Question Answer Notes Are you a: former smoker Additional Findings: Tobacco Non-User Current no n-smoker Alcohol Screen Question Answer Notes Did you have a drink contain ing alcohol in the past year? Yes How often did you have a dri nk containing alcohol in the past year? Monthly or less (1 point) Points 1 Interpretation Negative Tobacco use other than smoking: Question Answer Notes Are you an other tobacco user? No Problems Problem Type SNOMED Code ICD Code Onset Dates Problem Status W/U Status Risk Notes Problem [id number] Lower limb length difference (M21.70) Active confirmed Plan Of Treatment Pending Test Test Name Order Date 53854,[id number] TENDON SHEATH/LIGAMENT 0 05/22/2023 Insurance Providers Payer Name Payer Address Payer Phone Subscriber Number Group Number Insured Name Patient Relationship to Insured Coverage Start Date Coverage End Date [employer] [address] [place] [address] [phone] [id number] Kody Chery Spouse - patient is the spouse of the insured Medical (General) History Medical History History ICD Code asthma Back,Hip,and Knee pain Chicken pox Headaches/Migraines Transfusions Surgical History Surgery Date(Month/Year) hip replacement right 2015 left hip surgery 2009
--- OUTSIDE RECORDS SUMMARY | 2024-11-03 12:51 | XMS_ITS ---
Author Organization [facility] Address [address] [place] [address] Care Team Providers Care Automat Car Attendant Name Role Phone Kari Walter Primary Care Provider Meka Henderson Unavailable [phone] Allergies No Known Allergies REASON FOR VISIT PCP - 07/2022, PCP - 04/2023, pt states last pcp visit 05/21/2023, Heel pain Medications Medication SIG (Take, Route, Fr equency, [...] Are you an other tobacco user? No Vital Signs Height 5ft 6in in 07/22/2023 Weight 178 lbs 07/22/2023 BMI 28.73 kg/m2 07/22/2023 Encounters Encounter Location Date Provider Diagnosis [facility] [address] [place] [address] 07/22/2023 Meka Hoyt Plantar fasciitis of left foot M72.2 ; Pain of left heel M79.672 and Lower limb length difference M21.70 Assessments Encounter Date Diagnosis (ICD Code) Assessment Notes Treatment Notes Treatment Clinical Notes Section Notes 07/22/2023 Plantar fasciitis of left foot (ICD-10 - M72.2) 07/22/2023 Pain of left heel (ICD-10 - M79.672) 07/22/2023 Lower limb length difference (ICD-10 - M21.70) Plan Of Treatment Next Appt Details Follow Up: prn, Reason: Procedure Notes * Category Sub-Category Detail Notes Injection Tendon Sheath or Fascia 17747, J 701 Injection - #3 LEFT foot, Plantar Fascia w/ mixture of Celestone Soluspan 3mg and 1cc 1 percent Xylocaine Plain anes. utilizing aseptic technique. The patient tolerated the procedure well. A dry sterile dressing was applied. Post injection instructions were dispensed, verbally discussed, and confirmed understood by the patient. I explained that a steroid and local anesthetic injections are administered to relieve pain and inflammation and thereby meant to improve function. I explained the possible complications including but not limited to signs/symptoms of steroid flare, infection, bruising, atrophy, discoloration of skin, change/deviation in toe position, and that additional injections may be necessary, Patient relates post-procedural pain assessment improved at ( 0-1) out of 10 Progress Notes * Georgette GENTILEDOB:[birth year] (42 yo F)Acc No.[id number]:07/22/2023 Progress Notes Patient:?Georgette Gentile Provider:?Meka Hoyt DPM :1980???Age:42 Y???Sex:Female D ate:07/22/2023 Address:[address] [place] [id number] Pcp:Kari Walter Subjective: * Chief Complaints: * ???PCP - 2PCP - 3Pt states last pcp visit 05/21/2023Heel pain * HPI: ???Heel pain:?Nature:?aching, sharp pain, tenderness, throbbing.?Location:?Proximal plantar aspect of Heel, LEFT.?Duration:?several months .?Onset/Cause:?gradual, denies trauma.?Course:??improvment after corisone injection that lasted until about a week ago.?Aggrevated:?standing, walking, walking first thing in the morning/after rest.?Treatments:?rest, ice, change in shoes, gel cushions, stretching, massage, AFO-nightsplint , corticosteriod injection x 2.?Severity/Quality:?Pre-injection procedure pain assessment - ( 7 ) out of 10.?Misc:?Patient states previous conservative therapy has not provided acceptable relief. Despite previous treatments/efforts, patient continues to relate substantial pain and significant functional disability during activity.? * ROS:?General/Constitutional:?Nausea?denies, denies, denies.?Vomiting?denies, denies, denies.?Hunger Thirst?denies, admits, admits.?Loss appetite?denies, denies, denies.?Chills?denies, denies, denies.?Fatigue?denies, denies, denies.?Fever?denies, denies, denies.?Night Sweats?denies, denies, denies.?Unexplained weight loss?denies, denies, denies.?Unexplained weight gain?denies, denies, denies.?HEENTM:?Dentures?denies, denies, denies.?Dizziness?denies, denies, denies.?Glasses/contacts?admits, admits, admits.?Retinopathy?denies, denies, denies.?Blurred/double vision?denies, denies, denies.?TMJ?denies, denies, denies.?Discharge/drainage?denies, denies, denies.?Implants?denies, denies, denies.?Sore throat?denies, denies, denies.?Dental implants?denies, denies, denies.?Hard of hearing ?admits, admits, admits.?Difficulty chewing/swallowing/speaking denies, denies, denies.?Nose bleeds?denies, denies, denies.?Sore mouth?denies, denies, denies.?Respiratory:?On Oxygen?denies, denies, denies.?Pneumonia/pleurisy?denies, denies, denies.?Bronchitis?denies, denies, denies.?Emphysema?denies, denies, denies.?Coughing?denies, denies, denies.?Cough blood?denies, denies, denies.?Shortness of breath?denies, denies, denies.?Wheezing?denies, denies, denies.?Cardiovascular:?Pacemaker?denies, denies, denies.?MVP?denies, denies, denies.?WPW?denies, denies, denies.?CHF?denies, denies, denies.?Heart attack?denies, denies, denies.?Septal defect?denies, denies, denies.?Rapid beat denies, denies, denies.?Chest pain ?denies, denies, denies.?Atrial Fib.?denies, denies, denies.?Murmur/Palpitations?denies, denies, denies.?Gastrointestinal:?Hemorrhoids?denies, denies, denies.?Stomach/Abdominal pain?denies, denies, denies.?Dark blood stool?denies, denies, denies.?Irritable bowel ?denies, denies, denies.?Constipation?denies, denies, denies.?Diarrhea?denies, denies, denies.?Hematology:?Swelling?denies, denies, denies.?Clots?denies, denies, denies.?Varicose Veins?denies, denies, denies.?Bruising?denies, denies, denies.?Bleeding problem?denies, denies, denies.?Genitourinary:?Blood urine?denies, denies, denies.?Frequent/Painfu/urination/bladder control?denies, admits, admits.?Kidney stones?denies, denies, denies.?Infection (UTI)?denies, denies, denies.?Nephropathy?denies, denies, denies. sex trans dis (STD)?denies, denies, denies.?Prostate?denies, denies, denies.?Musculoskeletal:?Hammertoes?denies, denies, denies.?Bunions?denies, denies, denies.?Back Pain?denies, denies, denies.?Muscle Cramps/ Resting?denies, denies, denies.?Muscle cramps / walking?denies, denies, denies.?Generalized aches and pains?admits, admits, admits.?Weakness?denies, denies, denies.?Integ.:?Davies?denies, denies, denies.?Scars?denies, denies, denies.?Corns/calluses?denies, denies, denies.?Ingrown nails?denies, denies, denies.?Painful nails?denies, denies, denies.?Open Sores?denies, denies, denies.?Rashes?denies, denies, denies.?Neurologic:?Difficulty sleeping?denies, denies, denies.?Brain disorder?denies, denies, denies.?Numbness?denies, denies, denies.?Balance trouble?denies, denies, denies.?Confusion?denies, denies, denies.?Fainting/blackouts?denies, denies, denies.?Tingling?denies, denies, denies.?Tremors?denies, denies, denies.? * Medical History:? * Surgical History:? hip replacement right 2015left hip surgery 2010 * Hospitalization/Major Diagno stic Procedure:?Denies Past Hospitalization * Family History:?Mother: castillo cervantes, diagnosed with Diabetic - NIDDM.?Father: alive, prostate cancer.?Maternal Grand Mother: stroke, foot problems, diagnosed with Diabetic - NIDDM.? * Social History:?Tobacco Use:?Tobacco Use/Smoking?Are you a:?former smoker ?Additional Findings: Tobacco Non-User?Current non-smoker ?Tobacco use other than smoking?Are you an other tobacco user??No ???Drugs/Alcohol:?Drugs?Have you used drugs other than those for medical reasons in the past 12 months??No ?Alcohol Screen?Did you have a drink containing alcohol in the past year??Yes ?How often did you have a drink containing alcohol in the past year??Monthly or less (1 point) ?Points?1 ?Interpretation?Negative ???Miscellaneous:?Caffeine: yes. ?Children: yes. ?no Exercise. ?Marital status: . 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 * Medications:?TakingMotrin Om eprazole Custom Orthotics as directed Medication List reviewed and reconciled with the patientTaking Motrin Taking Omeprazole Taking Custom Orthotics as directed Medication List reviewed and reconciled with the patient * Allergies:?N.K.D.A.yes[Aller gies Verified] Objective: * Vitals:?Ht: 5ft 6in, Wt:178, BMI:28.73, Shoe size: 8, Ht-cm: 167.64 cm, Wt-k.74 kg. * Examination: ???General Examination: ?GENERAL APPEARANCE:?Reveals a pleasant, alert, well-nourished, well- developed, well hydrated individual, who demonstrates proper attention to hygiene/body habitus, and is in no acute distress, Pt serves as own?historian for office visit today.?ORIENTED:?person, place, and time.?Neurological: ?SENSORY:?Neurological exam reveals intact sensorium, pain sensation normal, vibration sensation intact, pinprick sensation is normal in the lower extremities, Pt denies, anesthesia, burning, paresthesia, tingling, B/L.?TINEL'S COMPRESSION:?Negative tarsal tunnel, liz pedis, and medial calcaneal nerves.?DEEP TENDON REFLEXES:?Achilles, 2/4, B/L.?Vascular: ?DP PULSES:?3/4, B/L.?PT PULSES:?3/4, B/L.?CAPILLARY FILL TIME:?immediate, all digits, B/L.?SKIN TEMPERTURE GRADIENT OF THE LOWER EXTERMITIES:?warm to cool, proximal to distal, B/L.?HAIR GROWTH/TEXTURE/ELASTICITY/TURGOR:?normal, B/L.?PIGMENTATION:?normal, B/L.?EDEMA:?absent, B/L.?Dermatologic: ?SKIN FINDINGS:?Skin exam reveals normal texture, elasticity, and turgor. There are no masses. The interspaces are clear.?Orthopedic: ?MUSCLE STRENGTH:?5/5 all groups in a symmetrical fashion , B/L.?GAIT ABNORMALITY:?antalgic.?LIMB LENGTH DISCREPANCY:? Left side < 1/4 inch Left shorter.?Heel Pain: ?INSPECTION:? Pain on Palpation to Plantar Fascia med. and central bands, intrinsic musc., infra-calcaneal bursa, and med calc tubercle , LEFT foot, No pain: posterior/superior heel, achilles bursa/tendon, sinus tarsi, peroneals, or with lateral heel compression; no limited STJ ROM, calor, or ecchymosis.? Assessment: * Assessment: 1.?Pain of left heel - M79.6 72?2.?Plantar fasciitis of left foot - M72.2 (Primary)?3.?Lower limb length difference - M21.70? Plan: * Treatment: * Procedures:?Injection:?Tendon Sheath or Fascia?38070, J0702 Injection - #3 LEFT foot, Plantar Fascia w/ mixture of Celestone Soluspan 3mg and 1cc 1 percent Xylocaine Plain anes. utilizing aseptic technique. The patient tolerated the procedure well. A dry sterile dressing was applied. Post injection instructions were dispensed, verbally discussed, and confirmed understood by the patient. I explained that a steroid and local anesthetic injections are administered to relieve pain and inflammation and thereby meant to improve function. I explained the possible complications including but not limited to signs/symptoms of steroid flare, infection, bruising, atrophy, discoloration of skin, change/deviation in toe position, and that additional injections may be necessary, Patient relates post-procedural pain assessment improved at ( 0-1) out of 10.? * Procedure Codes:?06713 INJ T ENDON SHEATH/LIGAMENT, Modifiers: XS J0702 INJ BETAMETHSN ACTAT&SOD PHOSPH-3MG * Preventive Medicine:? ??Counseling:?Orthotic Dispensing:?The patient presents today for fitting and dispensing of orthotics. The inserts were checked against the prescription and found to be accurate. They were properly fitted to the patient's feet in both weight-bearing and non-weight bearing attitudes. The patient was instructed to gradually increase the amount of time they are wearing the orthoses, starting with one hour the first day and thereon progressively increasing the amount of time used until they are comfortable to be worn all day and with all activities. They were asked to call the office if any signs of skin irritation were noted including redness, blistering or callous formation. The patient verbally indicated a full understanding of all the above information, Handout reviewed and dispensed.?Steriod Injection:?I explained that a steroid and local anesthetic injections are administered to relieve pain and inflammation and thereby meant to improve function. I explained the possible complications including but not limited to signs/symptoms of steroid flare, infection, bruising, atrophy, discoloration of skin, change/deviation in toe position, and that additional injections may be necessary, cortisone post-injection informative educational handout was dispensed to and reviewed with the patient.? * Follow Up:?prn * Images: * Sign off status: Completed true * Provider:?Meka Hoyt, PIERO Date:?03/2023 Generated for Rebeca ramires/Era/Luciana on:?11/03/2024 12:50 PM EST History and Physical Notes * HPI (History of Present Illness) Category Sub-Category Detail Notes Category Not es Heel pain Duration: several months Nature: aching, sharp pain, tenderness, throbbing Severity/Quality: Pre-injection proced ure pain assessment - ( 7 ) out of 10 Location: Proximal plantar asp ect of Heel, LEFT Onset/Cause: gradual, denies trau ma Aggravated: standing, walking, w alking first thing in the morning/after rest Course: improvment after cor isone injection that lasted until about a week ago Treatments: rest, ice, change in shoes, gel cushions, stretching, massage, AFO- nightsplint , corticosteriod injection x 2 Misc: Patient states previ ous conservative therapy has not provided acceptable relief. Despite previous treatments/efforts, patient continues to relate substantial pain and significant functional disability during activity Examination Category Sub-Category Detail Notes Category Not es Neurological SENSORY: Neurological exa m reveals intact sensorium, pain sensation normal, vibration sensation intact, pinprick sensation is normal in the lower extremities, Pt denies, anesthesia, burning, paresthesia, tingling, B/L TINEL'S COMPRESSION: Negative tarsal yaneli elizabeth, liz pedis, and medial calcaneal nerves DEEP TENDON REFLEXES: Achilles, 2/4, B/L Dermatologic SKIN FINDINGS: Skin exam reveal s normal texture, elasticity, and turgor. There are no masses. The interspaces are clear Orthopedic GAIT ABNORMALITY: antalgic LIMB LENGTH DISCREPANCY: Left side < 1/4 inch Left shorter MUSCLE STRENGTH: 5/5 all groups in a symmetrical fashion , B/L General Examination GENERAL APPEARANCE: Reveals a pleasant, alert, well- nourished, well-developed, well hydrated individual, who demonstrates proper attention to hygiene/body habitus, and is in no acute distress, Pt serves as own historian for office visit today ORIENTED: person, place, and t jaja Vascular DP PULSES (B): 3/4, B/L PT PULSES (B): 3/4, B/L CAPILLARY FILL TIME: immediate, all digi ts, B/L TEMPERTURE GRADIENT (C): warm to cool, p roximal to distal, B/L TROPHIC CONDITION-TEXTURE/ELASTICITY/TURGOR/HAIR GROWTH (B): normal, B/L EDEMA (C): absent, B/L PIGMENTATION: normal, B/L Heel Pain INSPECTION: Pain on Palpatio n to Plantar Fascia med. and central bands, intrinsic musc., infra-calcaneal bursa, and med calc tubercle , LEFT foot, No pain: posterior/superior heel, achilles bursa/tendon, sinus tarsi, peroneals, or with lateral heel compression; no limited STJ ROM, calor, or ecchymosis
--- OUTSIDE RECORDS SUMMARY | 2024-11-03 12:51 | XMS_ITS ---
Author Organization [facility] Address [address] [place] [id number] Care Team Providers Care Alumni Relations Officer Name Role Phone Kari Walter Primary Care Provider Mkea Henderson [phone] REASON FOR VISIT seen sooner Encounters Encounter Location Date Provider Diagnosis [address] [phone] 06/24/2023 Meka Hoyt Plan Of Treatment No Information Progress Notes * Georgette GENTILEDOB:[birth year] (44 yo F)Acc No.[id number]:06/24/2023 Progress Note Patient:?Georgette GENTILE Provider:?Meka Hoyt DPM :1980???Age:42 Y???Sex:Female D ate:06/24/2023 Address:[address] [place], [place] [phone] Pcp:Kari Walter Subjective: * Chief Complaints: * ???1. Seen sooner. * Medical History:? Objective: * Vitals:? Assessment: Plan: * Treatment: * Images: * The named appointment provid er may or may not be the originator of this progress note, and it is not deemed complete until electronically signed by the appointment provider. Sign off status: Pending * Provider:?Meka Hoyt DPM Date:?06/2023 Generated for Rebeca ramires/Era/eTransmitting on:?11/03/2024 12:50 PM EST
--- OUTSIDE RECORDS SUMMARY | 2024-11-03 12:51 | XMS_ITS | Data Portability ---
Author Organization [facility] - Comp-Whitneyd mckayla cavazos Rcnstrctive Surgry, OFFICE Address [address] [facility] [address] [place] [address] Assessment Encounter Date Assessment Date Assessment LastModified by Organization Details LastModified Time 10/19/2014 10/19/2014 Georgette's right hip has been largely symptomatic since her right SWATHI with only brief periods of near full relief. ? ? ?She's had two cortisone shots and a hip arthroscopy which have not given her any lasting relief. ? ? ?The superior weight bearing of the right hip looks well preserved but I'm more concerned about the medial part of the joint. ? ? ?I've recommended a MARS MR. sbm Not available 10/19/2014 14:39:16 03/27/2015 03/27/2015 She is progressing well after complex elective RTHR. ? ? ?We plan to continue progression of motion, strength, weight bearing, and reasonable activities as tolerated. sbm Not available 03/27/2015 14:14:07 07/05/2015 07/05/2015 Georgette has symptoms consistent with hip flexor irritation following complex THR in association with DDH and prior surgery. ? ? ?She had an injection under U/S guidance give her . ? ? ?We discussed stretching exercises. ? ? ?I've recommended a cbc, esr, and crp as well. We'll determine further treatment based on her clinical progress. sbm Not available 07/05/2015 11:13:12 01/26/2018 01/26/2018 Georgette has persistent active hip flexion and weakness. I've recommended a MARS MR to assess. sbm Not available 01/26/2018 11:56:52 Plan of Treatment Reminders Order Date Submit Date Provider Last Modified By Organization Details Last Modified Time Details Appointments None record ed. Lab None record ed. Referral None record ed. Procedures None record ed. Surgeries None record ed. Imaging None record ed. Medication Orders None record ed. Patient TargetsNo targets recorded. Patient InstructionsNo instructions recorded. Reason for Referral None Reported. Problems Name Problem SNOMED Code Status Onset Date Resolution Date Notes Provider Name and Address Organization Details Recorded Time Congenital deformity of hip joint 1812925 Active Hernando Barahona MD [address], [place], [address], [place] - [facility] 5 14:39:16 Congenital subluxation of hip, bilateral Active Hernando Barahona MD [address], [place], [address], [place] - [facility]Ass[facility]d and [facility] 5 14:39:16 Problem Notes None recorded. Procedures Surgical History Date Name Laterality Status Provider Name and Address Organization Details Recorded Time 5 Hip Surgery completed Hernando Barahona MD [address], [place], [address], [place] - [facility] 03/27/2015 14:11:14 0 Unlisted px pelvis/hip joint completed Hernando Barahona MD [address], [place], [address], [place] - [facility]Ass[facility]d and [facility] 10/19/2014 14:35:52 0 Unlisted px pelvis/hip joint completed Hernando Barahona MD [address], [place], [address], [place] - [facility]Ass[facility]d and [facility] 10/19/2014 14:35:52 Hip Surgery completed Hernando Barahona MD [address], [place], [address], [place] - [facility] 10/19/2014 14:35:52 Imaging Results None recorded. Procedure Notes None recorded. Medical Equipment None Reported. Allergies No known drug allergies Medications Name Sig Start Date Stop Date Status Note LastModified by Organization Details LastModified Time celecoxib 200 mg capsule Take 2 tablets po the night before surgery and 1 tablet po the morning of surgery. Post op: One po qd active Not Available Not Available No t Available amoxicillin 500 mg capsule Take 4 capsule(s ) 1hr prior to dental work 2020 active Not Available Not Available Not Avai lable hydrocodone 5 mg-acetaminoph en 325 mg tablet active Not Available Not Available Not Available fluoxetine 10 mg tablet active Not Available Not Available No t Available hydromorphone 2 mg tablet active Not Available Not Available Not Available lorazepam 0.5 mg tablet active Not Available Not Available No t Available lidocaine 5 % topical patch active Not Available Not Availabl e Not Available fluoxetine 10 mg capsule active Not Available Not Available N ot Available sertraline 25 mg tablet active Not Available Not Available No t Available buspirone 7.5 mg tablet active Not Available Not Available No t Available omeprazole 20 mg capsule,delaye d release active Not Available Not Available No t Available mupirocin 2 % topical ointment active Not Available Not Available Not Available lorazepam 1 mg tablet active Not Available Not Available Not Available warfarin 1 mg tablet Pre op: Starting 7 days prior to surgery take 1 tablet po nightly, except the night before surgery take 3 tablets po. Post op: Take as directed, up to 10 tablets, nightly po active Not Available Not Available No t Available ibuprofen 600 mg tablet TAKE 1 TABLET BY MOUTH EVERY 6 HOURS NEEDED (MAX 6 TABS DAILY) (MILD PAIN SCALE 1 3) active Not Available Not Available No t Available amoxicillin 875 mg-potassium clavulanate 125 mg tablet active Not Available Not Availabl e Not Available oxycodone 5 mg tablet TAKE 1 TABLET BY MOUTH EVERY 6 HOURS NEEDED FOR MODERATE PAIN SCALE 4 6 active Not Available Not Available No t Available Levora-28 0.15 mg-0.03 mg tablet active Not Available Not Available Not Available omeprazole active Not Available Not Av ailable Not Available hydrocodone 5 mg-acetaminoph en 300 mg tablet One to two tablets po q4-6h prn pain active Not Available Not Available No t Available Plus (calcium carbonate) 27 mg iron-1 mg tablet active Not Available Not Available Not Available Vitals Date Recorded Body height Body mass index (BMI) Body weight Provider Name and Address Organization Details Last Updated DateTime 03/27/2015 167.64 cm 25.8 kg/m2 64060.7792 g Kaye Calderon [place] - [facility] 03/27/2015 12:25:28 Date Recorded Systolic blood pressure Diastolic blood pressure Provider Name and Address Organization Details Last Updated DateTime 03/27/2015 116 mm[Hg] 70 mm[Hg] Tamar Tatumen MA - [facility] 03/27/2015 13:29:47 Date Recorded Body height Body mass index (BMI) Body weight Systolic blood pressure Diastolic blood pressure Provider Name and Address Organization Details Last Updated DateTime 07/05/2015 167.64 cm 28.6 kg/m2 91290.84 949 g 100 mm[Hg] 61 mm[Hg] Kaye Calderon MA - [facility]Ass[facility] 5 10:42:09 Date Recorded Body height Body mass index (BMI) Body weight Systolic blood pressure Diastolic blood pressure Provider Name and Address Organization Details Last Updated DateTime 01/26/2018 167.64 cm 26.6 kg/m2 84655.74 g 111 mm[Hg] 68 mm[Hg] Kaye Calderon MA - [facility]Ass[facility] 8 11:05:57 Date Recorded Body weight Body height Body mass index (BMI) Systolic blood pressure Diastolic blood pressure Provider Name and Address Organization Details Last Updated DateTime 10/19/2014 52097.18 683 g 167.64 cm 25.7 kg/m2 105 mm[Hg] 72 mm[Hg] Shea Anne MA - Comp[facility]Assistd and [facility]cn[facility] 5 14:07:32 Date Recorded Systolic blood pressure Diastolic blood pressure Provider Name and Address Organization Details Last Updated DateTime 11/07/2015 135 mm[Hg] 93 mm[Hg] Kaye Calderon MA - Comp-As sistd and Rcnstrctive Surgry 11/07/2015 12:23:01 Social History Question Answer Notes LastModified by Organizat ion Details LastModified Time Tobacco Smoking Status Former Smoker Hernando Barahona MD [address] [place] [address],[facility] [address], [place], [address], [place] - [facility] 10/19/2014 14:35:52 What Was The Date Of Your Most Recent Tobacco Screening? 01/26/2018 Information n ot available 04/08/2019 Sex: Unknown Functional Status None recorded. Mental Status None recorded. Family History Nothing Reported. Medical History Condition Response Heart Problems N Coronary Artery Disease N Gout N Anxiety/Depression N Blood Transfusion N Hernia N Migraines N Thyroid Problems N COPD N Pacemaker N Anemia N Heart Attack (DC) N Ulcers N Diabetes N Bleeding Disorder N Orthotics N Arthritis N Seizures/Epilepsy N Blood Clot N Tuberculosis N AIDS/HIV N Cancer N Stroke N Asthma N Peripheral Vascular Disease N High Cholesterol N Hepatitis N Liver Disease N Rheumatoid Arthritis N Pulmonary Embolism N Hypertension N Osteoporosis N Kidney Disease N Gynecological HistoryNo gynecological history recorded. Obstetrics History GPAL:G 0 P 0 0 0 0 Past Encounters Encounter ID Performer Location Encounter Start Date Encounter Closed Date Diagnosis/Indication Diagnosis SNOMED-CT Code Diagnosis ICD10 Code Diagnosis Note [id number] OFFICE [address] [address] 07/19/2009 14:53:05 07/19/2009 17:14:45 Congenital deformity of hip joint 1505813 [id number] OFFICE [address] [address] 01/29/2010 14:09:43 01/29/2010 14:42:57 Congenital deformity of hip joint 6764641 [id number] [facility] [address] [place] [address] 12/27/2009 00:04:09 12/27/2009 00:04:09 Congenital subluxation of hip, bilateral 659265142 [id number] OFFICE [address] [address] 04/04/2010 12:08:20 04/04/2010 13:45:51 Congenital deformity of hip joint 1379202 [id number] OFFICE [address] [address] 04/24/2010 13:59:04 04/25/2010 15:35:57 Congenital deformity of hip joint 6406711 [id number] OFFICE [address] [address] 05/09/2010 13:47:43 05/09/2010 15:12:24 Congenital deformity of hip joint 3578584 41858 [facility] [address] [place] [place] [address] 04/05/2010 00:04:22 04/05/2010 00:04:23 Congenital deformity of hip joint 6157554 [id number] OFFICE [address], [place] [address] [place] [address] 07/11/2010 13:34:07 07/11/2010 15:33:49 Congenital deformity of hip joint 0428799 [id number] OFFICE [address], [facility] [address] [place] [address] 11/07/2010 13:14:07 11/07/2010 15:40:36 Congenital deformity of hip joint 2271272 [id number] OFFICE [address], [facility] [address] [place] [address] 01/30/2011 10:04:55 01/30/2011 11:45:54 Congenital deformity of hip joint 9211537 33540 Shea Omid OFFICE [address], [place] [address] [place] [address] 10/19/2014 13:52:38 10/19/2014 15:17:19 Congenital subluxation of hip, bilateral Congenital deformity of hip joint 8989592 [id number] [facility] OFFICE [address], [place] [address] [place] [address] 03/27/2015 12:20:12 03/27/2015 14:22:36 [id number] Hernando Barahona MD OFFICE [address], [place] [address] [place] [address] 07/05/2015 10:15:10 07/05/2015 11:33:44 [id number] Hernando Barahona MD OFFICE [address], [place] [address] [place] [address] 01/26/2018 10:13:35 01/27/2018 11:29:02 Health Concerns Section Related Observation LastModified by Organization Detai ls LastModified Time None Recorded Concern Status LastModified by Organization Details LastModified Time None Recorded Advance Directives Directive None Recorded Payers Encounter Date Sequence Insurance Name Policy Number Policy Jesus Covered Member ID Jesus Member ID Guarantor Name 10/19/2014 1 [place] [facility] (O) [id number] Kody Gentile [id number] Georgette Gentile 03/27/2015 1 [place] [facility] [id number] Kody Gentile [id number] Georgette Gentile 07/05/2015 1 [place] [facility] [id number] Kody Gentile [id number] Georgette Gentile 01/26/2018 1 [place] [facility] [id number] Kody Gentile [id number] Georgette Gentile Notes Date Note Type Note Provider Name and Address Organization Details Recorded Time 01/26/2018 text/html Hip(s) AthenaReported bypatient.Location:r ight; groin Severity:moderate Alleviating Factors:rest Aggravating Factors:active hip flexion Associated Symptoms:no weakness; no numbness; no tingling; no swelling; no redness; no warmth; no ecchymosis; no catching/locking; no popping/clicking; no buckling; no grinding; no instability; no radiation down leg; no drainage; no fever; no chills; no weight loss; no change in bowel/bladder habits Prior Imaging:x ray; CT scan Previous PT:helped temporarily Hernando Barahona MD [address] [place] [address],[facility] [address], [place], [address], [place] - [facility]Ass[facility]d and Rcnstrctive Surgry 01/26/2018 11:56:56 OBGyn Episode No OBEpisode recorded.
--- NOTE | 2024-11-04 13:12 | MHC.AU.HA3 ---
Hearing Instrument Follow-Up- Binaural Date of Visit: 11/04/24 Right Ear: Rajan, Model, Color, Serial Number: Oticon Real 2 miniRITE-R SN: [id number] Color: B And E Territory Sales Manager Medical Repair Warranty: 06/13/2026 Territory Sales Manager Medical Loss and Damage Warranty: 06/13/2026 [facility] Service Plan: OPTED OUT Battery Size: Rechargeable Materials Handling Coordinator/Slim Tube: 1/60 Earmold/Dome/CShell/SlimTip:6mm OpenBass dome with retention tail Type of Wax Guard: MiniFit Dispensed By: [facility] Date of Fittin06/18/2023 Left Ear: Rajan, Model, Color, Serial Number: Oticon CROS PX SN: [id number] Color: B And E Territory Sales Manager Medical Repair Warranty: 06/13/2026 Territory Sales Manager Medical Loss and Damage Warranty: 06/13/2026 [facility] Service Plan: OPTED OUT Battery Size: Rechargeable Materials Handling Coordinator/Slim Tube: 1/60 Earmold/Dome/CShell/SlimTip: 6mm OpenBass dome with retention tail Type of Wax Guard: MiniFit Dispensed By: [facility] Date of Fittin06/18/2023 Follow-Up Summary: FULLER and CROS dropped off on 11/03/2024. Assessed on 11/04/2024. Right FULLER casing broken. [facility]. Cleaned left CROS device. Changed dome and wax guard. Vacuumed microphones. Left CROS in 'Repair Drawer' to hold until right FULLER returns from repair. Georgette approved $50.00 service charge, due at machine pecan picker. Recommendations: Patient will be contacted when materials have arrived. Diagnosis Code(s): Primary Diagnosis: H90.42 SNHL Unilateral Left Side, W/Unrestricted Contralateral Hearing Signature: Provider: Reza Steel, [facility]A
== END 2024-11-03 12:33 | disposition home or self-care (01) ==
LOC: HO.HAP 12:32
PROVIDERS: Visit Provider Internal Medicine
DX: Z13.89 Encounter for screening for other disorder (principal)

== ENCOUNTER 2024-11-18 10:43 | Outpatient (REF) | payer SELFPAY ==
--- NOTE | 2024-11-18 11:23 | MHC.AU.HA3 ---
Hearing Instrument Follow-Up- Binaural Date of Visit: 11/18/24 Right Ear: Make, Model, Color, Serial Number: Oticon Real 2 miniRITE-R SN: [id number] Color: Pitts Coach Mechanic Repair Warranty: 06/13/2026 Coach Mechanic Loss and Damage Warranty: 06/13/2026 [facility] Service Plan: OPTED OUT Battery Size: Rechargeable Scout Sniper/Slim Tube: 1/60 Earmold/Dome/CShell/SlimTip:6mm OpenBass dome with retention tail Type of Wax Guard: MiniFit Dispensed By: [facility] Date of Fittin06/18/2023 Left Ear: Make, Model, Color, Serial Number: Oticon CROS PX SN: [id number] Color: Pitts Coach Mechanic Repair Warranty: 06/13/2026 Coach Mechanic Loss and Damage Warranty: 06/13/2026 [facility] Service Plan: OPTED OUT Battery Size: Rechargeable Scout Sniper/Slim Tube: 1/60 Earmold/Dome/CShell/SlimTip: 6mm OpenBass dome with retention tail Type of Wax Guard: MiniFit Dispensed By: [facility] Date of Fittin06/18/2023 Follow-Up Summary: Here to car pick up driver aids. Wanted to be shown how to replace tails. Reports she had picked up some tails here at one point but had trouble replacing them. Demonstrated tail change. Recommendations: Recommendations: Hearing instrument follow-up or maintenance as needed. Diagnosis Code(s): Primary Diagnosis: H90.42 SNHL Unilateral Left Side, W/Unrestricted Contralateral Hearing Signature: Provider: Reza Denis, [facility]3]-A
--- OUTSIDE RECORDS SUMMARY | 2024-11-18 12:52 | XMS_ITS | Patient Health Record ---
Author Organization [facility] Address [address] [place] [address] Care Team Providers Care Chief Business Development Officer Name Role Phone Kari Walter Primary Care Provider Meka Henderson Unavailable [phone] Allergies No Known Allergies Reason For Referral [...] Problem Status W/U Status Risk Notes Problem 23878928 Lower limb length difference (M21.70) Active confirmed Plan Of Treatment Pending Test Test Name Order Date 80756,H2366-RNY TENDON SHEATH/LIGAMENT 0 05/22/2023 Insurance Providers Payer Name Payer Address Payer Phone Subscriber Number Group Number Insured Name Patient Relationship to Insured Coverage Start Date Coverage End Date [employer] [address] [place] [address] [id number] Kody Chery Spouse - patient is the spouse of the insured Medical (General) History Medical History History ICD Code asthma Back,Hip,and Knee pain Chicken pox Headaches/Migraines Transfusions Surgical History Surgery Date(Month/Year) hip replacement right 2015 left hip surgery 2009
--- OUTSIDE RECORDS SUMMARY | 2024-11-18 12:52 | XMS_ITS ---
Author Organization [facility] Address [address] [place] [address] Care Team Providers Care Screen Printer Name Role Phone Kari Walter Primary Care Provider Meka Henderson [phone] REASON FOR VISIT issue with orthotics 07/22/23 Encounters Encounter Location Date Provider Diagnosis [facility] [address] [place] [address] 06/10/2023 Meka Hoyt Plan Of Treatment No Information Progress Notes * PRAFULGeorgette NUNEZDOB:[birth year] (42 yo F)Acc No.[id number]:06/10/2023 Patient:?Georgette Gentile :1980???Age:42 Y???Sex:Female Address:[address] [place] [address], [address] * true * Date:? Generated for Servandoi ike/Era/eTransmitting on:?11/18/2024 12:52 PM EST
--- OUTSIDE RECORDS SUMMARY | 2024-11-18 12:53 | XMS_ITS | Clinical Summary ---
Author Organization [facility] Address [address] [place] [address] Care Team Providers Care Paper Sales Representative Name Role Phone Ilene Mckeon MD Primary Care Provider [phone] Allergies No known active allergies Medications LORazepam [...] eservative (Fluzone; Afluria) 6mo and older 06/22/2019,09/27/2016 Ex[employer] Apps SARS-CoV-2 COVID-19, mRNA, LNP-S, preservative free 01/02/2021,12/11/2020 Td, Unspecified 03/21/2004 Tdap Tetanus diptheria acell ular pertussis (Boostrix; Adacel) 7yo and older 04/14/2020,11/09/2015,10/01/2012 Surgical History Surgery Date Site/Laterality Comments OTHER SURGICAL HISTORY PROCEDURE: PERIACETABULAR OSTEOTOMY; COMMENT: left in 12/2009 and right in 03/2010 OTHER SURGICAL HISTORY PROCEDURE: SC REVJ TOT HIP ARTHRP BTH W/WO AGRFT/ALGRFT; COMMENT: arthroscopic (right hip) 08/2011 OTHER SURGICAL HISTORY Right PROCEDURE: SC ARTHRP ACETBLR/PROX FEM PROSTC AGRFT/ALGRFT; COMMENT: 02/10/2015 [...] mammographic evidence of malignancy. BI-RADS 2-benign Result [facility] Laure Domingo MD IMG XR PROCEDURES Final Re sult * (ABNORMAL) Lipid panel (05/29/2021) [facility] LDL/HDL Ratio 4 0 - 4 Triglycerides 133 0 - 150 mg/dL Cholesterol 248(A) 0 - 200 mg/dL HDL 65 >=40 mg/dL LDL Cholesterol 157(A) 0 - 100 mg/dL Blood Venous blood specimen / Unknown Result [facility] Provider LAB BLOOD ORDERABLES Claudette l Result * HIV Screening (11/16/2019) [facility] HIV Screening abstracted Result [facility] Provider HEALTH MAINTENANCE Final Result * Hepatitis C Screening (11/16/2019) [facility] Hepatitis C Screening abstracted Result [facility] Provider HEALTH MAINTENANCE Final Result * Cervical Cancer Screening: HPV (05/15/2018) [facility] Cervical Cancer Screening: HPV negative, abstracted Result [facility] Provider HEALTH MAINTENANCE Final Result from Last 3 Months or Most Recently Relevant to Health Maintenance Care Teams Paper Sales Representative Relationship Specialty Start Date End Date Ilene Mckeon MD PCP - General Internal Medicine 05/09/22
--- OUTSIDE RECORDS SUMMARY | 2024-11-18 12:53 | XMS_ITS ---
Author Organization [facility] Address [address] [place] [address] Care Team Providers Care Supercalender Operator Helper Name Role Phone Kari Walter Primary Care Provider Meka Henderson Unavailable [phone] Allergies No Known Allergies REASON FOR VISIT [...] 07/22/2023 Encounters Encounter Location Date Provider Diagnosis [facility] [address] [place] [address] 07/22/2023 Meka Hoyt Plantar fasciitis of left [...] Detail Notes Injection Tendon Sheath or Fascia 56271, J 701 Injection - #3 LEFT foot, [...] Notes * Georgette GENTILEDOB:[birth year] (42 yo F)Acc No.[id number]:07/22/2023 Progress Notes Patient:?Georgette Gentile Provider:?Meka Hoyt DPM :1980???Age:42 Y???Sex:Female D ate:07/22/2023 Address:[address] [place] [address] Pcp:Kari Walter Subjective: * Chief Complaints: * [...] Plan: * Treatment: * Procedures:?Injection:?Tendon Sheath or Fascia?43232, J0702 Injection - #3 LEFT foot, Plantar [...] ( 0-1) out of 10.? * Procedure Codes:?00410 INJ T ENDON SHEATH/LIGAMENT, Modifiers: XS J0702 [...] * Sign off status: Completed true * Provider:Joan Hoyt, PIERO Date:?03/2023 Generated for Rebeca ramires/Era/Luciana on:?11/18/2024 12:53 PM EST History and Physical Notes * [...]
--- OUTSIDE RECORDS SUMMARY | 2024-11-18 12:53 | XMS_ITS ---
Author Organization [facility] Address [address] [place] [address] Care Team Providers Care Freight Team Associate Name Role Phone Kari Walter Primary Care Provider Meka Henderson [phone] REASON FOR VISIT seen sooner Encounters Encounter Location Date Provider Diagnosis [address] [address] 06/24/2023 Meka Hoyt Plan Of Treatment No Information Progress Notes * Georgette GENTILEDOB:[birth year] (44 yo F)Acc No.[id number]:06/24/2023 Progress Note Patient:?Georgette GENTILE Provider:?Meka Hoyt DPM :1980???Age:42 Y???Sex:Female D ate:06/24/2023 Address:[address] [place], [place] [address] Pcp:Kari Walter Subjective: * Chief Complaints: * [...] Hoyt DPM Date:?06/2023 Generated for Rebeca ramires/Era/eTransmitting on:?11/18/2024 12:53 PM EST
== END 2024-11-18 10:44 | disposition home or self-care (01) ==
LOC: HO.HAP 10:43
PROVIDERS: Visit Provider Internal Medicine
DX: Z46.1 Encounter for fitting and adjustment of hearing aid (principal); H90.42 Sensorineural hearing loss, unilateral, left ear, with unrestricted hearing on the contralateral side
CPT/HCPCS: 92593

== ENCOUNTER 2024-11-25 15:54 | Outpatient (REF) | payer SELFPAY ==
--- OUTSIDE RECORDS SUMMARY | 2024-11-25 19:15 | XMS_ITS ---
Author Organization [facility] Address [address] [place] [address] Care Team Providers Care Insulation Blower Name Role Phone Kari Walter Primary Care Provider Meka Henderson Unavailable [phone] Allergies No Known Allergies REASON FOR VISIT [...] 07/22/2023 Encounters Encounter Location Date Provider Diagnosis [facility] [address] [place] [address] 07/22/2023 Meka Hoyt Plantar fasciitis of left [...] Detail Notes Injection Tendon Sheath or Fascia 81636, J 701 Injection - #3 LEFT foot, [...] Notes * Georgette GENTILEDOB:[birth year] (42 yo F)Acc No.[id number]:07/22/2023 Progress Notes Patient:?Georgette Gentile Provider:?Meka Hoyt DPM :1980???Age:42 Y???Sex:Female D ate:07/22/2023 Address:[address] [place] [address] Pcp:Kari Walter Subjective: * Chief Complaints: * [...] Plan: * Treatment: * Procedures:?Injection:?Tendon Sheath or Fascia?63800, J0702 Injection - #3 LEFT foot, Plantar [...] ( 0-1) out of 10.? * Procedure Codes:?33360 INJ T ENDON SHEATH/LIGAMENT, Modifiers: XS J0702 [...] off status: Completed true * Provider:Joan Hoyt, DPWilliam Date:?03/2023 Generated for Rebeca ramires/Era/Luciana on:?11/25/2024 07:15 PM EDT History and Physical Notes * HPI (History [...]
--- OUTSIDE RECORDS SUMMARY | 2024-11-25 19:15 | XMS_ITS | Data Portability ---
Author Organization [facility] - Comp-Whitneyd mckayla cavazos Rcnstrctive Surgry, OFFICE Address [address] [facility] [address] [place] [id number] Assessment Encounter Date Assessment Date Assessment LastModified [...] Recorded Time Congenital deformity of hip joint 9145597 Active Hernando Barahona MD [address], [place], [address], [place] - Comp-Assistd and Rcnstrctive Surgry 5 14:39:16 Congenital subluxation of hip, bilateral Active Hernando Barahona MD [address], [place], [address], [place] - Comp-Assistd and Rcnstrctive Surgry 5 14:39:16 Problem Notes None recorded. Procedures Surgical History Date Name Laterality Status Provider Name and Address Organization Details Recorded Time 5 Hip Surgery completed Hernando Barahona MD [address], [place], [address], [place] - Comp-Assistd and Rcnstrctive Surgry 03/27/2015 14:11:14 0 Unlisted px pelvis/hip joint completed Hernando Barahona MD [address], [place], [address], [place] - Comp-Assistd and Rcnstrctive Surgry 10/19/2014 14:35:52 0 Unlisted px pelvis/hip joint completed Hernando Barahona MD [address], [place], [address], [place] - Comp-Assistd and Rcnstrctive Surgry 10/19/2014 14:35:52 Hip Surgery completed Hernando Barahona MD [address], [place], [address], [place] - Comp-Assistd and Rcnstrctive Surgry [...] Updated DateTime 03/27/2015 167.64 cm 25.8 kg/m2 69903.7792 g Kaye Calderon [place] - Comp-Assistd and [...] Updated DateTime 07/05/2015 167.64 cm 28.6 kg/m2 22426.84 949 g 100 mm[Hg] 61 mm[Hg] Kaye Calderon [place] - Comp-Assistd and Rcnstrctive Surgry 5 10:42:09 Date Recorded Body height Body mass index (BMI) Body weight Systolic blood pressure Diastolic blood pressure Provider Name and Address Organization Details Last Updated DateTime 01/26/2018 167.64 cm 26.6 kg/m2 02038.74 g 111 mm[Hg] 68 mm[Hg] Kaye Calderon [place] - Comp-Assistd and Rcnstrctive Surgry 8 11:05:57 Date Recorded Body weight Body height Body mass index (BMI) Systolic blood pressure Diastolic blood pressure Provider Name and Address Organization Details Last Updated DateTime 10/19/2014 79506.18 683 g 167.64 cm 25.7 kg/m2 105 [...] Smoking Status Former Smoker Hernando Barahona MD [address] [place] [address],[facility] [address], [place], [address], [place] - Comp-Assistd and Rcnstrctive Surgry 10/19/2014 14:35:52 What Was The Date Of Your Most Recent Tobacco Screening? 01/26/2018 Information n ot available 04/08/2019 Sex: Unknown Functional Status None recorded. Mental Status None recorded. Family History Nothing Reported. Medical History Condition Response Coronary Artery Disease N Heart Problems N Gout N Anxiety/Depression N Blood Transfusion N Hernia N Migraines N Thyroid Problems N COPD N Pacemaker N Anemia N Ulcers N Heart Attack ([place]) N Diabetes N Bleeding Disorder N Orthotics [...] SNOMED-CT Code Diagnosis ICD10 Code Diagnosis Note [id number] OFFICE [address] [address] 07/19/2009 14:53:05 07/19/2009 17:14:45 Congenital deformity of hip joint 4223351 57763 OFFICE [address] [address] 01/29/2010 14:09:43 01/29/2010 14:42:57 Congenital deformity of hip joint 6244382 17841 PENDING SALE TO [facility] [address] [place] [address] 12/27/2009 00:04:09 12/27/2009 00:04:09 Congenital subluxation of hip, bilateral 342884641 29655 OFFICE [address] [address] 04/04/2010 12:08:20 04/04/2010 13:45:51 Congenital deformity of hip joint 6614626 17604 OFFICE [address] [address] 04/24/2010 13:59:04 04/25/2010 15:35:57 Congenital deformity of hip joint 6998799 79479 OFFICE [address] [address] 05/09/2010 13:47:43 05/09/2010 15:12:24 Congenital deformity of hip joint 6650222 51179 PENDING SALE TO [facility] [address] [place] [address] 04/05/2010 00:04:22 04/05/2010 00:04:23 Congenital deformity of hip joint 8719681 52738 OFFICE [address] [place] [address] [place] [address] 07/11/2010 13:34:07 07/11/2010 15:33:49 Congenital deformity of hip joint 0396618 75185 OFFICE [address], [facility] [address] [place] [address] 11/07/2010 13:14:07 11/07/2010 15:40:36 Congenital deformity of hip joint 9172645 90768 OFFICE [address], [facility] [address] [place] [address] 01/30/2011 10:04:55 01/30/2011 11:45:54 Congenital deformity of hip joint 9748272 39683 Shea Omid OFFICE [address] [place] [address] [place] [address] 10/19/2014 13:52:38 10/19/2014 15:17:19 Congenital subluxation of hip, bilateral Congenital deformity of hip joint 9444263 88863 [facility] OFFICE [address], [place] [address] [place] [address] 03/27/2015 12:20:12 03/27/2015 14:22:36 [id number] Hernando Barahona MD OFFICE [address] [place] [address] [place] [address] 07/05/2015 10:15:10 07/05/2015 11:33:44 [id number] Hernando Barahona MD OFFICE [address], [place] [address] [place] [address] 01/26/2018 10:13:35 01/27/2018 11:29:02 Health Concerns Section Related Observation LastModified by Organization Detai ls LastModified Time None Recorded Concern Status LastModified by Organization Details LastModified Time None Recorded Advance Directives Directive None Recorded Payers Encounter Date Sequence Insurance Name Policy Number Policy Jesus Covered Member ID Jesus Member ID Guarantor Name 10/19/2014 1 [place] [facility] [id number] Kody Gentile [id number] Georgette Gentile 03/27/2015 1 [place] [facility] [id number] Kody Gentile [id number] Georgette Gentile 07/05/2015 1 [place] [facility] [id number] Kody Gentile [id number] Georgette Gentile 01/26/2018 1 [place] [facility] [id number] Kody Gentile [id number] Georgette Gentile Notes Date Note Type Note [...] scan Previous PT:helped temporarily Hernando Barahona MD [address] [place] [address],[place] [address], [place], [address], [place] - Comp-Assistd and Rcnstrctive Surgry 01/26/2018 11:56:56 OBGyn Episode No OBEpisode recorded.
--- OUTSIDE RECORDS SUMMARY | 2024-11-25 19:15 | XMS_ITS ---
Author Organization [facility] Address [address] [place] [address] Care Team Providers Care Sound Designer Name Role Phone Kari Walter Primary Care Provider Meka Henderson [phone] REASON FOR VISIT issue with orthotics 07/22/23 Encounters Encounter Location Date Provider Diagnosis [facility] [address] [place] [address] 06/10/2023 Meka Hoyt Plan Of Treatment No Information Progress Notes * PRAFULGeorgette NUNEZDOB:[birth year] (42 yo F)Acc No.[id number]:06/10/2023 Patient:?Georgette Gentile :1980???Age:42 Y???Sex:Female Address:[address] [place] [address], [address] * true * Date:? Generated for Printi ike/Era/eTransmitting on:?11/25/2024 07:14 PM EDT
--- OUTSIDE RECORDS SUMMARY | 2024-11-25 19:15 | XMS_ITS ---
Author Organization [facility] Address [address] [place] [address] Care Team Providers Care Labour Market Economist Name Role Phone Kari Walter Primary Care Provider Meka Henderson [phone] REASON FOR VISIT seen sooner Encounters Encounter Location Date Provider Diagnosis [address] [address] 06/24/2023 Meka Hoyt Plan Of Treatment No Information Progress Notes * Georgette GENTILEDOB:[birth year] (44 yo F)Acc No.[id number]:06/24/2023 Progress Note Patient:?Georgette GENTILE Provider:?Meka Hoyt DPM :1980???Age:42 Y???Sex:Female D ate:06/24/2023 Address:[address] [place], [place] [address] Pcp:Kari Walter Subjective: * Chief Complaints: * [...] Hoyt DPM Date:?06/2023 Generated for Rebeca ramires/Era/eTransmitting on:?11/25/2024 07:15 PM EDT
--- OUTSIDE RECORDS SUMMARY | 2024-11-25 19:15 | XMS_ITS | Patient Health Record ---
Author Organization [facility] Address [address] [place] [address] Care Team Providers Care Manager Government Name Role Phone Kari Walter Primary Care Provider Meka Henderson Unavailable [phone] Allergies No Known Allergies Reason For Referral [...] Problem Status W/U Status Risk Notes Problem 14912177 Lower limb length difference (M21.70) Active confirmed Plan Of Treatment Pending Test Test Name Order Date [id number] TENDON SHEATH/LIGAMENT 0 05/22/2023 Insurance Providers Payer Name Payer Address Payer Phone Subscriber Number Group Number Insured Name Patient Relationship to Insured Coverage Start Date Coverage End Date [employer] All Others [address] [place] [address] [phone] [id number] Kody Chery Spouse - patient is the spouse of the insured Medical (General) History Medical History History ICD Code asthma Back,Hip,and Knee pain Chicken pox Headaches/Migraines Transfusions Surgical History Surgery Date(Month/Year) hip replacement right 2015 left hip surgery 2009
--- OUTSIDE RECORDS SUMMARY | 2024-11-25 19:15 | XMS_ITS | Clinical Summary ---
Author Organization [facility] Address [address] [place] [address] Care Team Providers Care Pilot Control Operator Name Role Phone Ilene Mckeon MD Primary Care Provider [phone] Allergies No known active allergies Medications LORazepam [...] eservative (Fluzone; Afluria) 6mo and older 06/22/2019,09/27/2016 [employer] SARS-CoV-2 COVID-19, mRNA, LNP-S, preservative free 01/02/2021,12/11/2020 Td, Unspecified 03/21/2004 Tdap Tetanus diptheria acell ular pertussis (Boostrix; Adacel) 7yo and older 04/14/2020,11/09/2015,10/01/2012 Surgical History Surgery Date Site/Laterality Comments OTHER SURGICAL HISTORY PROCEDURE: PERIACETABULAR OSTEOTOMY; COMMENT: left in 12/2009 and right in 03/2010 OTHER SURGICAL HISTORY PROCEDURE: IN REVJ TOT HIP ARTHRP BTH W/WO AGRFT/ALGRFT; COMMENT: arthroscopic (right hip) 08/2011 OTHER SURGICAL HISTORY Right PROCEDURE: IN ARTHRP ACETBLR/PROX FEM PROSTC AGRFT/ALGRFT; COMMENT: 02/10/2015 [...] mammographic evidence of malignancy. BI-RADS 2-benign Result [facility] Laure Domingo MD IMG XR PROCEDURES Final Re sult * (ABNORMAL) Lipid panel (05/29/2021) [facility] LDL/HDL Ratio 4 0 - 4 Triglycerides 133 0 - 150 mg/dL Cholesterol 248(A) 0 - 200 mg/dL HDL 65 >=40 mg/dL LDL Cholesterol 157(A) 0 - 100 mg/dL Blood Venous blood specimen / Unknown Result [facility] Provider LAB BLOOD ORDERABLES Claudette l Result * HIV Screening (11/16/2019) [facility] HIV Screening abstracted Result [facility] Provider HEALTH MAINTENANCE Final Result * Hepatitis C Screening (11/16/2019) [facility] Hepatitis C Screening abstracted Result [facility] Provider HEALTH MAINTENANCE Final Result * Cervical Cancer Screening: HPV (05/15/2018) [facility] Cervical Cancer Screening: HPV negative, abstracted Result [facility] Provider HEALTH MAINTENANCE Final Result from Last 3 Months or Most Recently Relevant to Health Maintenance Care Teams Pilot Control Operator Relationship Specialty Start Date End Date Ilene Mckeon MD PCP - General Internal Medicine 05/09/22
== END 2024-11-25 15:55 | disposition home or self-care (01) ==
LOC: HO.MAMMO 15:54
PROVIDERS: PCP Internal Medicine; Visit Provider Internal Medicine
DX: Z12.31 Encounter for screening mammogram for malignant neoplasm of breast (principal)
CPT/HCPCS: 77063; 77067

== ENCOUNTER → 2024-11-25 16:00 | Outpatient (BNV) | payer SELFPAY | PROVIDERS: PCP Internal Medicine; Visit Provider Internal Medicine | DX: Z12.31 Encounter for screening mammogram for malignant neoplasm of breast (principal) | CPT/HCPCS: 77063; 77067 ==

== ENCOUNTER 2025-02-17 15:23 | Outpatient (AMB) | payer BC, SELFPAY ==
--- NOTE | 2025-02-17 15:42 | A.OFFPC_ITS ---
Vital Signs 02/17/25 15:43 Height 5 ft 6 in Weight 183 lb BMI 29.5 BP 120/70 Blood Pressure Location Lt brachial Position Sitting Pulse 110 H Pulse Source Pulse Oximeter Temp 97.5 F Temp Source Temporal Artery Scan Pulse Oximetry (%) 98 Oxygen Delivery Method Room Air Intake Visit Reasons: Annual exam Intake Note: Patient is here today for a physical. Alliance Consultant Required: No Tractor Trailer Moving Van Driver: Not Required per policy Accompanied by: Self / Same As Patient Allergies No Known Allergies [No Known Allergies*] Allergy (Verified 02/17/25 15:43) Tobacco use date assessed: 02/17/25 Dental Screening Dental Screen Date: 02/17/25 Did you have a dental visit in the last 12 months?: Yes Did you have a dental problem in the last 6 months where you did not have access to dental care?: No Was dental information given to patient?: Patient has dentist [facility] Medical History Nicotine dependence due to vaping tobacco product Nicotine dependence Screening for human papillomavirus (HPV) (~12/2022) Hx of mammogram (~11/2023) Generalized anxiety disorder Plantar fasciitis of left foot Deep vein thrombosis of left lower extremity Migraine with aura History of smoking Asthma Hyperlipidemia Encounter to establish care History of cigarette smoking Surgical History H/O liposuction of abdomen H/O abdominoplasty Previous section History of hip surgery Family History Mother Diabetes Father History of prostate cancer Social History Household Members: Spouse Household Members Other:: 3 children (one on her own) Housing: House Alcohol intake: current Alcohol intake frequency: a few times a week Patient Tobacco Use Status: Former Tobacco user Tobacco use type: Cigarette Years Smoked: pt quit 13 years ago, 1PPD e-Cigarette/Vaping Use: Former Use Second Hand Smoke Exposure: Yes service: No 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al status: employed 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: [employer] 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al exposures/hazards: No Sexual orientation: Straight/Heterosexual Gender identity: Female Cognitive needs: No Hearing needs: No Vision needs: Yes (glasses) Questionnaire PHQ-9 Over the last 2 weeks, how often have you been bothered by any of the following problems? 1. Little interest or pleasure in doing things: not at all 2. Feeling down, depressed, or hopeless: not at all 3. Trouble falling or staying asleep, or sleeping too much: not at all 4. Feeling tired or having little energy: more than half the days 5. Poor appetite or overeating: more than half the days 6. Feeling bad about yourself - or that you are a failure or have let yourself or your family down: not at all 7. Trouble concentrating on things, such as reading the newspaper or watching television: not at all 8. Moving or speaking so slowly that other people could have noticed. Or the opposite - being so fidgety or restless that you have been moving around a lot more than usual: not at all 9. Thoughts that you would be better off or of hurting yourself in some way: not at all Total score: 4 Depression Screening Interpretation: Positive Depression Screening Done: Yes Source: Developed by Drs. Tigre Hall, Misti Ashton, Albaro Bhatti and colleagues, with an educational chidi from [employer]. Thrive Questionnaire Date Thrive assessed: 02/10/25 I am a: Patient What is your living situation today?: I have a steady place to live Within the past 12 months, did the food you bought not last and you didn't have the money to get more?: Never true Within the past 12 months, did you worry whether your food would run out before you got money to buy more?: Never true Do you have trouble paying for medicines?: No Do you have trouble getting transportation to medical appointments?: No Do you have trouble paying your heating and electricity bill?: No Do you have trouble taking care of your child, family member or friend?: No Do you have trouble with day-to-day activities such as bathing, preparing meals, shopping, managing finances, etc.?: No Are you currently unemployed and looking for a job?: No Are you interested in more education?: No Please select the resources that you would like help with: None Currently or been in a relationship where the following occur: No concerns reported THRIVE Score: 0 AUDIT C Alcohol Use Questionnaire (AUDIT-C) 1. How often do you have a drink containing alcohol?: 2-4 times a month 2. How many drinks containing alcohol do you have on a typical day when you are drinking?: 3 or 4 3. How often do you have six or more drinks on one occasion?: Less than monthly Total Score: 4 CHINA-7 AMB Questionnaire CHINA-7 Date CHINA - 7 assessed: 02/17/25 Feeling nervous, anxious, or on edge: 1 = Several days Not being able to stop or control worryin = Several days Worrying too much about different things: 0 = Not at all Trouble relaxin = Not at all Being so restless that it is hard to sit still: 0 = Not at all Becoming easily annoyed or irritable: 2 = More than half the days Feeling afraid as if something awful might happen: 0 = Not at all Total CHINA-7 score (0-4 normal; 5-9 mild; 10-14 moderate; 15-21 severe): 4 Source: Developed by Drs. Tigre Hall, Misti Ashton, Albaro Bhatti and colleagues, with an educational chidi from [employer]. Physical exam (Primary Care) Vital Signs: Last Vital Signs Temp 97.5 F 02/17/25 15:43 Pulse 110 H 02/17/25 15:43 BP 120/70 02/17/25 15:43 Pulse Ox 98 02/17/25 15:43 Oxygen Delivery Method Room Air 02/17/25 15:43 BMI result Body Mass Index 29.5 Tobacco/Smoking Status: Tobacco use Status Tobacco use date assessed 02/17/25 02/17/25 16:02 Patient Tobacco Use Status Former Tobacco user 02/17/25 16:02 Tobacco use type Cigarette 02/17/25 16:02 e-Cigarette/Vaping Use Former Use 02/17/25 16:02 PHQ-9: PHQ-9 Score PHQ-9: Total score 4 02/17/25 16:02 Depression Screening Interpretation: Positive Thrive Assessment: Date of Thrive Assessment Date Thrive assessed 02/10/25 02/17/25 16:02 Currently or been in a relationship where the following occur: No concerns reported Coding Level of Care Code Est Pt Level 4 (31712) Complex EM visit Add On G2211 Diagnoses Anxiety F41.9 Hyperlipidemia E78.5 Assessment & Plan Assessment & Plan (1) Anxiety: Code(s): F41.9 - Anxiety disorder, unspecified Category: Medical Plan: She has stopped the Welbutrin and has stopped vaping. Congratulated her on the same. Intermittent use of anxiolytics (2) Hyperlipidemia: Code(s): E78.5 - Hyperlipidemia, unspecified Category: Medical Plan: BW ordered. Celiac testing ordered per patient request Plan History of Present Illness - The patient is a 44-year-old female presenting with queries regarding potential celiac disease. - Testing for celiac disease due to family history; daughter has digestive issues, patient wants testing as precaution. - Denies significant symptoms typically associated with celiac disease. - Recently ceased vaping five months ago, managing nicotine withdrawal with gum. - Past anxiety increased with bupropion requiring frequent benzodiazepine use; anxiety resolved after medication stopped. 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 - History of vaping, currently using nicotine gum after quitting vaping five months ago. - Celebrating a 20-year work anniversary, indicating stable employment. Review of Systems - Gastrointestinal: Reports mild digestive discomfort occasionally but not problematic. - Psychiatric: Reports past increased anxiety with bupropion; currently managed without significant issues. - General: Denies current significant health issues. Physical Exam General: Cooperative and healthy appearing Nutritional Appearance: Well nourished Orientation/consciousness: Patient oriented x3 Limitations: No limitations Head: Normal to inspection General: Appearance normal, both eyes and all related structures Neck: Normal visual inspection Chest: Normal palpation of entire chest wall Respiratory: Normal respiratory effort Neurology: Patient oriented x3 Results Plan 1. Nicotine Use - Continue using nicotine gum for cessation support; successfully vaping free for five months. 2. Use Of Benzodiazepines - Decrease in benzodiazepine needs since bupropion cessation; 14 tablets of lorazepam prescribed as needed. 3. Potential Celiac Disease - Order a blood test to evaluate for celiac disease due to family history linkage. 4. Anxiety Induced By Bupropion - Discontinued bupropion due to anxiety exacerbation; symptoms have since resolved. Discussion Notes During today's consultation, we discussed the patient's family history of celiac disease and the concerns stemming from symptoms seen in her middle daughter. The patient requested a blood test for celiac disease as a precautionary measure, which I have ordered. Additionally, we reviewed her history of vaping cessation five months ago, and she is currently managing any nicotine cravings using nicotine gum. I praised her commitment to staying vape-free. Her past use of bupropion was associated with heightened anxiety, which led to the increased necessity for benzodiazepines like lorazepam. The discontinued use of bupropion has resulted in diminished anxiety symptoms and decreased benzodiazepine consumption. Thus, her current prescription for lorazepam remains at 14 tablets for occasional use. We concluded the visit by ensuring her mammogram was up to date and confirmed that she has an upcoming regular women's health visit. Patient Instructions - Continue using nicotine gum as a method of maintaining vaping cessation. - Use lorazepam only as necessary for anxiety; do not exceed the prescribed amount. - Expect a blood test order for celiac disease; proceed with testing when arranged. - Remember to follow up with women's health visit scheduled in July. Orders: Orders Immunoglobulins,IgG IgA IgM Today E78.5 - Hyperlipidemia, unspecified, F41.9 - Anxiety disorder, unspecified Thyroid Stimulating Hormone Today E78.5 - Hyperlipidemia, unspecified, F41.9 - Anxiety disorder, unspecified Lipid Panel Today E78.5 - Hyperlipidemia, unspecified, F41.9 - Anxiety disorder, unspecified Basic Metabolic Panel Today E78.5 - Hyperlipidemia, unspecified, F41.9 - Anxiety disorder, unspecified Complete Blood Count no Diff Today E78.5 - Hyperlipidemia, unspecified, F41.9 - Anxiety disorder, unspecified UA and rflx microscopic Today E78.5 - Hyperlipidemia, unspecified, F41.9 - Anxiety disorder, unspecified Celiac Diagnostic Gliadin TTG Today E78.5 - Hyperlipidemia, unspecified, F41.9 - Anxiety disorder, unspecified Liver Panel Today E78.5 - Hyperlipidemia, unspecified, F41.9 - Anxiety disorder, unspecified
[2025-02-17 15:43] VITALS: BP 120/70; PULSE 110; TEMP 36.4; O2SAT 98; BMI 29.5
--- OUTSIDE RECORDS SUMMARY | 2025-02-17 17:54 | XMS_ITS | Patient Health Record ---
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 Plan Of Treatment Pending Test Test Name Order Date [id number] TENDON SHEATH/LIGAMENT 0 05/22/2023 Insurance Providers Payer Name Payer Address Payer Phone Subscriber Number Group Number Insured Name Patient Relationship to Insured Coverage Start Date Coverage End Date [employer] All Others [address] [place] [address] [id number] Kody Chery Spouse - patient is the spouse of the insured Medical (General) History Medical History History ICD Code asthma Back,Hip,and Knee pain Chicken pox Headaches/Migraines Transfusions Surgical History Surgery Date(Month/Year) hip replacement right 2015 left hip surgery 2009
== END 2025-02-17 16:13 | disposition home or self-care (01) ==
LOC: HO.HMCH 15:24
PROVIDERS: PCP Internal Medicine; Visit Provider Internal Medicine
DX: F41.9 Anxiety disorder, unspecified (principal); E78.5 Hyperlipidemia, unspecified

== ENCOUNTER → 2025-02-17 15:23 | Outpatient (BNVA) | payer BC, SELFPAY | PROVIDERS: PCP Internal Medicine; Visit Provider Internal Medicine | DX: Z13.89 Encounter for screening for other disorder (principal) ==

== ENCOUNTER 2025-02-18 08:22 | Outpatient (REF) | payer BC, SELFPAY ==
[2025-02-18 11:26] LABS: Hematocrit 39.8 % (37.0-47.0); Hemoglobin 13.6 g/dl (12.0-16.0); Mean Corpuscular HGB Conc 34.2 g/dl (31.0-35.0); Mean Corpuscular Hemoglobin 31.7 pg (27.0-33.0); Mean Corpuscular Volume 92.8 fL (80.0-98.0); Mean Platelet Volume 10.8 fL (9.4-12.3); Platelet Count 216 X10*3/uL (160-400); Red Blood Count 4.29 X10*6/uL (4.20-5.50); Red Cell Distribution Width 13.5 % (11.0-16.0); White Blood Count 4.7 X10*3/uL (4.8-10.8)
[2025-02-18 11:44] LABS: Appearance Urine Clear; Color Urine Yellow; Glucose Urine UA Negative (Negative); Leukocyte Esterase Urine Negative (Negative); Nitrite Urine Negative (Negative); PH 5.5 (5.0-9.0); Specific Gravity - Urine 1.015 (1.005-1.025); Urine Blood Negative (Negative); Urine Ketones Negative (Negative); Urine Protein Negative (Neg-Trace)
[2025-02-18 12:16] LABS: Alanine Aminotransferase 12 U/L (0-31); Albumin Level 4.3 g/dL (3.5-5.0); Alkaline Phosphatase 57 U/L (39-117); Anion Gap 10 (12-20); Aspartate Amino Transferase 16 U/L (5-31); Bilirubin Direct 0.1 mg/dL (0.0-0.5); Bilirubin Total 0.5 mg/dL (0.0-1.0); Blood Urea Nitrogen 18 mg/dL (9-16); Calcium 9.4 mg/dL (8.4-10.2); Carbon Dioxide 25 mmol/L (22-29); Chloride 106 mmol/L (96-108); Cholesterol 193 mg/dL (<200); Estimated Glomerular Filt Rate > 60; Glucose Random 85 mg/dL (60-115); HDL Cholesterol 49 mg/dL (>40); LDL Cholesterol Calculated 119 mg/dL (<100); Sodium 137 mmol/L (135-145); Total Protein 6.7 g/dL (6.5-8.0); Triglycerides 126 mg/dL (<150)
[2025-02-18 12:42] LABS: Thyroid Stimulating Hormone 1.76 uIU/mL (0.32-4.0)
[2025-02-22 22:29] LABS: Gliadin Deamidated IgA Ab 1.2 U/mL; Gliadin Deamidated IgG Ab <1.0 U/mL; IgA 108 mg/dL (47-310); IgG 815 mg/dL (600-1640); IgM 87 mg/dL (50-300); Transglutaminase Ab IgG <1.0 U/mL; Transglutaminase IgA <1.0 U/mL
== END 2025-02-18 08:23 | disposition home or self-care (01) ==
LOC: HO.WFDLDS 08:22
PROVIDERS: Visit Provider Internal Medicine
DX: F41.9 Anxiety disorder, unspecified (principal); E78.5 Hyperlipidemia, unspecified; G89.29 Other chronic pain; M79.672 Pain in left foot; I82.402 Acute embolism and thrombosis of unspecified deep veins of left lower extremity
CPT/HCPCS: 36415; 80048; 80061; 80076; 81003; 82784; 84443; 85027; 86258; 86364

== ENCOUNTER 2025-07-27 08:53 | Outpatient (AMB) | payer BC, SELFPAY ==
[2025-07-27 09:01] VITALS: BP 92/60; BMI 29.5
--- NOTE | 2025-07-27 09:01 | A.OFFVIS_ITS ---
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 RS Intake Note: night sweats, irritability, fatigue Seed Sorter Required: No Allergies No Known Allergies (No Known Allergies*) Allergy (Verified 07/27/25 09:05) Medication List - Last Reconciled 07/27/25 by Cassidy Salazar LPN albuterol sulfate 90 mcg/actuation (Ventolin HFA) 2 puffs inhalation Q4-6H PRN 30 days lorazepam 0.5 mg PO DAILY PRN spironolactone 25 mg PO DAILY sumatriptan succinate take 1 tab at onset of headache; if no relief may repeat 1 tab after at least 2 hrs; max = 4 tabs/24 hr PO 30 days Is last menstrual period known: Yes Last menstrual period: 07/07/25 Post menopausal: No Patient : No HPI Comments Details: Patient is a 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 Recent prachi. hip liposuction. She repots recent constipation. Currently sexually active, w/, hx of vasectomy. Denies any vaginal dryness or irritation. STI testing offered; she declines. Attempting to eat a healthy diet with calcium and vitamin D and stays active with exercise. Last pap smear; 2022, negative. Last mammogram; 2024. Denies any family history of breast, ovarian or colon cancer. PFSH Medical History Nicotine dependence due to vaping tobacco product Nicotine dependence Screening for human papillomavirus (HPV) (~12/2022) Hx of mammogram (~11/2023) Generalized anxiety disorder Plantar fasciitis of left foot Deep vein thrombosis of left lower extremity Migraine with aura History of smoking Asthma Hyperlipidemia Encounter to establish care History of cigarette smoking Surgical History H/O liposuction of abdomen H/O abdominoplasty Previous section History of hip surgery Family History Mother Diabetes Father History of prostate cancer Social History Household Members: Spouse Household Members Other:: 3 children (one on her own) Housing: House Alcohol intake: current Alcohol intake frequency: a few times a week Patient Tobacco Use Status: Former Tobacco user Tobacco use type: Cigarette Years Smoked: pt quit 13 years ago, 1PPD e-Cigarette/Vaping Use: Former Use Second Hand Smoke Exposure: Yes service: No 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al status: employed 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: [employer]/ RT 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al exposures/hazards: No Sexual orientation: Straight/Heterosexual Gender identity: Female Cognitive needs: No Hearing needs: No Vision needs: Yes (glasses) Female Reproductive History Menstrual Duration of menses: 3-5 days Date of last menstrual period: 07/07/25 control method: other Total pregnancies: 3 Full term: 3 Number of Living Children: 3 Date of last pap smear: 10/20/24 History of abnormal pap smear: No History of STI: No Date of Mammogram: 11/25/24 History of abnormal mammogram: No Review of Systems Const All systems reviewed & are unremarkable except as noted in HPI and below Reports as per HPI Eyes Reports no additional complaints ENT Reports no additional complaints Card Reports no additional complaints Resp Reports no additional complaints GI Reports as per HPI and Reports no additional complaints Reports as per HPI Musc Reports no additional complaints Skin/Breast Reports as per HPI Neuro Reports no additional complaints Psych Reports no additional complaints Endo Reports no additional complaints Ankit/Lymph Reports no additional complaints Aller/Immun Reports no additional complaints Physical Exam Vital Signs: Last Vital Signs BP 92/60 07/27/25 09:01 BMI result Body Mass Index 29.5 Const General: cooperative, healthy appearing, no acute distress, well developed and alert Orientation/consciousness: patient oriented x3 HEENT Head: Yes normal to inspection Eyes General: appearance normal, both eyes and all related structures Neck Neck: Yes normal visual inspection Thyroid: Thyroid normal Chest Chest palpation & inspection: normal inspection of the chest and other (no puckering, dimpling, peau de orange, retraction, discharge, masses) Breast/axilla inspection: normal inspection of the breasts Breast/axilla palpation: normal palpation of the breasts Resp Effort & Inspection: normal respiratory effort GI Inspection: Yes normal to inspection and Yes scar Palpation (GI): Soft to palpation Rectal Exam - Female: deferred General: Yes bladder normal to palpation External Female Exam: normal external appearance and normal appearance of the urethra Speculum Exam - Vagina: normal appearance of the vagina, normal palpation and normal vaginal discharge Speculum Exam - Cervix: normal appearance of the cervix and normal palpation Bimanual exam- vagina & uterus: normal bimanual exam, normal palpation, uterine size normal, bladder normal to palpation, normal palpation and non-tender Bimanual Exam- Adnexa, other: no masses Skin General skin exam: no rashes or lesions noted Rashes: no rashes Neuro General: patient oriented x3 Cognition (Neuro): normal cognition Extrem General: Yes normal to inspection Psych Attitude: cooperative Thought process: Normal thought process present Results AMB Urinalysis Automated WC UR Glucose Last Edit by Cassidy Salazar LPN on 07/27/25 09:21 UR Ketone Last Edit by Cassidy Salazar LPN on 07/27/25 09:21 UR Specific [place] Last Edit by Cassidy Salazar LPN on 07/27/25 09:2 1 UR Blood Small Last Edit by Cassidy Salazar LPN on 07/27/25 09:21 UR Ph 6.0 Last Edit by Cassdiy Salazar LPN on 07/27/25 09:21 UR Protein Trace Last Edit by Cassidy Salazar LPN on 07/27/25 09:21 UR Nitrite Last Edit by Cassidy Salazar LPN on 07/27/25 09:21 UR Leukocytes Last Edit by Cassidy Salazar LPN on 07/27/25 09:21 Results Reviewed Results Reviewed: Laboratory Last Values Urine pH (Clinic) 6.0 07/27/25 09:20 Ur Protein (Clinic) Trace 07/27/25 09:20 Urine Blood (Clinic) Small 07/27/25 09:20 Assessment & Plan Assessment & Plan (1) Encounter for well woman exam with routine gynecological exam: Code(s): Z01.419 - Encounter for gynecological examination (general) (routine) without abnormal findings Category: Medical Plan Discussed: Current recommendations for pap smears per ASCCP guidelines. Breast awareness and periodic breast exams. Mammogram yearly. Maintain a healthy lifestyle including a well balanced diet and routine exercise. Increase dietary fiber and fluids. Perimenopausal transition. Suggested readings. Patient verbalizes understanding and agrees to the plan of care. She was given opportunity to ask questions and all questions were answered to the best of my ability. 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 This note is constructed using voice recognition software. While every effort has been made to ensure accuracy, head of maintenance errors may have been included. Coding Level of Care Code Est Pt Prev Care 40-64y(10793) Diagnoses Encounter for well woman exam with routine gynecological exam Z01.419
--- OUTSIDE RECORDS SUMMARY | 2025-07-27 09:27 | XMS_ITS | Clinical Summary ---
Author Organization [facility] ity Address [address] [place] [address] Care Team Providers Care Show Card Letterer Name Role Phone Ilene Mckeon MD Primary Care Provider [phone] Allergies No known active allergies Medications LORazepam [...] congenital 11/30/2009 Otalgia 09/10/2005 Overview (09/13/2024): Immunizations Immunization Administration Dates Next Due HPV, Quadrivalent 10/21/2008,06/20/2008,04/18/20 08 Influenza Quadravalent, MDCK , 0.5ml, preservative free (Flucelvax) 6mo and older 05/29/2021,07/19/2020,07/06/2018 Influenza trivalent, 0.5mL, preservative free (Fluarix; FluLaval; Fluzone) ages 6mo and older (Afluria) 3 years and older 07/07/2015 Influenza trivalent, with pr eservative (Fluzone; Afluria) 6mo and older 06/22/2019,09/27/2016 eDealya SARS-CoV-2 COVID-19, mRNA, LNP-S, preservative free 01/02/2021,12/11/2020 Td, Unspecified 03/21/2004 Tdap Tetanus diptheria acell ular pertussis (Boostrix; Adacel) 7yo and older 04/14/2020,11/09/2015,10/01/2012 Surgical History Surgery Date Site/Laterality Comments OTHER SURGICAL HISTORY PROCEDURE: PERIACETABULAR OSTEOTOMY; COMMENT: left in 12/2009 and right in 03/2010 OTHER SURGICAL HISTORY PROCEDURE: NE REVJ TOT HIP ARTHRP BTH W/WO AGRFT/ALGRFT; COMMENT: arthroscopic (right hip) 08/2011 OTHER SURGICAL HISTORY Right PROCEDURE: NE ARTHRP ACETBLR/PROX FEM PROSTC AGRFT/ALGRFT; COMMENT: 02/10/2015 [...] Years Used Date Smoking Tobacco: Former Cigarettes 1 Q uit: 06/15/2009 Smokeless Tobacco: Never Alcohol [...] of 3 - 19+ 3-dose series) 2000 Social Influencers of Health Screening 08/24/2022 Cervical Cancer Screening: HPV 05/15/2023 05/15/2018 Breast Cancer Screening 11/08/2023 11/08/2021 Depression Screening 09/15/2024 COVID-19 Vaccine ( season) 2025 01/02/2021, 12/11/2020 Influenza Vaccine (#1) 2025 , 07/19/2020, 06/22/2019, Additional history exists Cholesterol Screening (Lipid Panel) 05/29/2026 05/29/2021 DTaP,Tdap,and Td Vaccines (5 - Td or Tdap) 04/14/2030 04/14/2020, 11/09/2015, 10/01/2012, Additional history exists RSV Immunization Adult Patients (1 - 1-dose 75+ series) 2056 HPV Vaccines Completed 10/21/2008, 1002/2008, 04/18/2008 HIV Screening Completed 11/16/2019 Hepatitis C [...] age to complete this topic Meningococcal B Vaccine Aged Out No l onger eligible based on patient's age to complete this topic Pneumococcal Vaccine: Pediatrics (0 to 5 Years) and At-Risk Patients (6 to 49 Years) Aged Out No longer eligible based [...] interpreted with the aid of computer-aided detection. This is a baseline exam. Breast parenchyma is composed of scattered fibroglandular densities. Intramammary lymph nodes in the upper outer left [...] mammographic evidence of malignancy. BI-RADS 2-benign Result [facility] Laure Domingo MD IMG XR PROCEDURES Final Re sult * (ABNORMAL) Lipid panel (05/29/2021) [facility] LDL/HDL Ratio 4 0 - 4 Triglycerides 133 0 - 150 mg/dL Cholesterol 248(A) 0 - 200 mg/dL HDL 65 >=40 mg/dL LDL Cholesterol 157(A) 0 - 100 mg/dL Blood Venous blood specimen / Unknown Result [facility] Radha THOMPSON LAB BLOOD ORDERABLES Claudette l Result * HIV Screening (11/16/2019) [facility] HIV Screening abstracted Result [facility] Radha [facility] HEALTH MAINTENANCE Final Result * Hepatitis C Screening (11/16/2019) [facility] Hepatitis C Screening abstracted Result [facility] Radha [facility] MAINTENANCE Final Result * Cervical Cancer Screening: HPV (05/15/2018) [facility] Cervical Cancer Screening: HPV negative, abstracted Result [facility] Radha [facility] MAINTENANCE Final Result from Last 3 Months or Most Recently Relevant to Health Maintenance Care Teams Show Card Letterer Relationship Specialty Start Date End Date Ilene Mckeon MD PCP - General Internal Medicine 05/09/22
--- OUTSIDE RECORDS SUMMARY | 2025-07-27 09:27 | XMS_ITS | Patient Health Record ---
Author Organization [facility] Address [address] [place] [address] Care Team Providers Care Pharmacy District Manager Name Role Phone Kari Walter Primary Care Provider Meka Henderson Unavailable [phone] Allergies No Known Allergies Reason For Referral [...] Problem Status W/U Status Risk Notes Problem Lower limb length difference (M21.70) Active confirmed Plan Of Treatment Pending Test Test Name Order Date ,[id number] TENDON SHEATH/LIGAMENT 0 05/22/2023 Insurance Providers Payer Name Payer Address Payer Phone Subscriber Number Group Number Insured Name Patient Relationship to Insured Coverage Start Date Coverage End Date [facility] [employer] [address] [place] [address] [phone] [id number] Kody Chery Spouse - patient is the spouse of the insured Medical (General) History Medical History History ICD Code asthma Back,Hip,and Knee pain Chicken pox Headaches/Migraines Transfusions Surgical History Surgery Date(Month/Year) hip replacement right 2015 left hip surgery 2009
== END 2025-07-27 11:14 | disposition home or self-care (01) ==
LOC: HO.HWS 08:54
PROVIDERS: PCP Internal Medicine; Visit Provider Advanced Practice Midwife
DX: Z01.419 Encounter for gynecological examination (general) (routine) without abnormal findings (principal)
CPT/HCPCS: 99396; 99459

== ENCOUNTER 2025-09-01 08:18 | Outpatient (AMB) | payer BC, SELFPAY ==
--- OUTSIDE RECORDS SUMMARY | 2025-09-01 08:35 | XMS_ITS | Data Portability ---
Author Organization [facility], OFFICE Address [address] [address] Assessment Encounter Date Assessment Date Assessment LastModified by Organization Details LastModified Time 10/19/2014 10/19/2014 Georgette's right hip has been largely symptomatic since her right SWATHI with only brief periods of near full relief. She's had two cortisone shots and a hip arthroscopy which have not given her any lasting relief. The superior weight bearing of the right hip looks well preserved but I'm more concerned about the medial part of the joint. I've recommended a MARS MR. sbm Not available 10/19/2014 14:39:16 03/27/2015 03/27/2015 She is progressing well after complex elective RTHR. We plan to continue progression of motion, strength, weight bearing, and reasonable activities as tolerated. sbm Not available 03/27/2015 14:14:07 07/05/2015 07/05/2015 Georgette has symptoms consistent with hip flexor irritation following complex THR in association with DDH and prior surgery. She had an injection under U/S guidance give her . We discussed stretching exercises. I've recommended a cbc, esr, and crp as [...] Recorded Time Congenital deformity of hip joint 8035816 Active Hernando Barahona MD [address], [place], [address], [place] - [facility] 5 14:39:16 Congenital subluxation of hip, bilateral Active Hernando Barahona MD [address], [place], [address], [place] - Comp-Assistd and [facility] 5 14:39:16 Problem Notes None recorded. Procedures Surgical History Date Name Laterality Status Provider Name and Address Organization Details Recorded Time 5 Hip Surgery completed Hernando Barahona MD [address], [place], [address], [place] - [facility] 03/27/2015 14:11:14 0 Unlisted px pelvis/hip joint completed Hernando Barahona MD [address], [place], [address], [place] - Comp-Assistd and [facility] 10/19/2014 14:35:52 0 Unlisted px pelvis/hip joint completed Hernando Barahona MD [address], [place], [address], [place] - Comp-Assistd and [facility] 10/19/2014 14:35:52 Hip Surgery completed Hernando Barahona MD [address], [place], [address], [place] - Comp-Ass[facility]d and [facility]urg[facility] 10/19/2014 [...] Available Not Available Vitals Date Recorded Body weight Body height Body mass index (BMI) Systolic And Diastolic Provider Name and Address Organization Details Last Updated DateTime 10/19/2014 23278.186 83 g 167.64 cm 25.7 kg/m2 105/72 mm[Hg] Shea Omid [place] - Comp[facility] 10/19/2014 14:07:32 Date Recorded Systolic And Diastolic Provider Name and Address Organization Details Last Updated DateTime 11/07/2015 135/93 mm[Hg] Kaye Calderon [place] - Comp-Assi std and Rcnstrctive Surgry 11/07/2015 12:23:01 Date Recorded Body height Body mass index (BMI) Body weight Systolic And Diastolic Provider Name and Address Organization Details Last Updated DateTime 01/26/2018 167.64 cm 26.6 kg/m2 89868.74 g 111/68 mm[Hg] Kaye Negreteman [place] - Comp-Assistd and Rcnstrctive Surgry 01/26/2018 11:05:57 Date Recorded Systolic And Diastolic Provider Name and Address Organization Details Last Updated DateTime 03/27/2015 116/70 mm[Hg] Tamar Tatumraúl [facility] - Comp[facility]A ssistd and Rcnstr[facility] Surg[facility] 03/27/2015 13:29:47 Date Recorded Body height Body mass index (BMI) Body weight Provider Name and Address Organization Details Last Updated DateTime 03/27/2015 167.64 cm 25.8 kg/m2 43544.7792 g Kaye Calderon [place] - Comp-Assistd and Rcnstrctive Surgry 03/27/2015 12:25:28 Date Recorded Body height Body mass index (BMI) Body weight Systolic And Diastolic Provider Name and Address Organization Details Last Updated DateTime 07/05/2015 167.64 cm 28.6 kg/m2 76402.849 49 g 100/61 mm[Hg] Kaey Negreteman [place] - Comp-Assistd and Rcnstrctive Surgry 07/05/2015 10:42:09 Social History Question Answer Notes LastModified by Organizat ion Details LastModified Time Tobacco Smoking Status Former Smoker Hernando Barahona MD [address] [place] [address],[facility] [address], [place], [address], [place] - Comp-Ass[facility]d and [facility]cn[facility] Surg[facility] 10/19/2014 [...] N Anemia N Ulcers N Heart Attack ([place]) N Diabetes N Bleeding Disorder N Orthotics [...] Diagnosis SNOMED-CT Code Diagnosis ICD10 Code Diagnosis IMO Codes Diagnosis Note [id number] Hernando Barahona MD OFFICE 125 [facility], [address] [address] 07/19/2009 14:53:05 07/19/2009 17:14:45 Congenital deformity of hip joint 9417631 47875 Hernando Barahona MD OFFICE 125 [facility], [address] [address] 01/29/2010 14:09:43 01/29/2010 14:42:57 Congenital deformity of hip joint 7391455 18342 Hernando Barahona MD [facility] [address] [place] [address] 12/27/2009 00:04:09 12/27/2009 00:04:09 Congenital subluxation of hip, bilateral 907879970 11929 Hernando Barahona MD OFFICE 125 [facility], [address] [address] 04/04/2010 12:08:20 04/04/2010 13:45:51 Congenital deformity of hip joint 5271885 62099 Hernando Barahona MD OFFICE 125 [facility], [address] [place] [address] 04/24/2010 13:59:04 04/25/2010 15:35:57 Congenital deformity of hip joint 6254884 50833 Hernando Barahona MD OFFICE 125 [facility], [address] [place] [address] 05/09/2010 13:47:43 05/09/2010 15:12:24 Congenital deformity of hip joint 3473086 79411 Hernando Barahona MD [facility] [address] [place] [address] 04/05/2010 00:04:22 04/05/2010 00:04:23 Congenital deformity of hip joint 3989042 82979 Hernando Barahona MD OFFICE [address], [address] [address] 07/11/2010 13:34:07 07/11/2010 15:33:49 Congenital deformity of hip joint 4098931 62298 Hernando Barahona MD OFFICE [address], [address] [address] 11/07/2010 13:14:07 11/07/2010 15:40:36 Congenital deformity of hip joint 4124325 77045 Hernando Barahona MD OFFICE [address], [address] [address] 01/30/2011 10:04:55 01/30/2011 11:45:54 Congenital deformity of hip joint 7277885 72497 Hernando Barahona MD OFFICE [address], [address] [address] 10/19/2014 13:52:38 10/19/2014 15:17:19 Congenital subluxation of hip, bilateral 797235658 Congenital deformity of hip joint 4274596 10012 Hernando Barahona MD OFFICE [address], [address] [address] 03/27/2015 12:20:12 03/27/2015 14:22:36 [id number] Hernando Barahona MD OFFICE [address], [address] [address] 07/05/2015 10:15:10 07/05/2015 11:33:44 [id number] Hernando Barahona MD OFFICE [address], [address] [address] 01/26/2018 10:13:35 01/27/2018 11:29:02 Health Concerns Section Related Observation LastModified by Organization Detai ls LastModified Time None Recorded Concern Status LastModified by Organization Details LastModified Time None Recorded Advance Directives Directive None Recorded Payers Insurance Date Sequence Insurance Name Policy Number Policy Jesus Covered Member ID Jesus Member ID Guarantor Name 01/19/[address] [place] [address] [id number] Georgette Otero [id number] Georgette Gentile 01/19/2018 2 [facility] Georgette Otero [id number] Georgette Gentile 01/23/[address] [facility] [id number] Kody Gentile [id number] Georgette Gentile Notes Date Note Type Note Provider Name and Address Organization Details Recorded Time 10/19/19 15 text/htm l Hip(s) AthenaReported by PatientHPIFor location, patient reportsright,lateral, andgroin. For quality, patient reportsdullanddeep. For severity, patient reportsmoderate(after activity.). For alleviating factors, patient reportsrest. For aggravating factors, patient reportswalkingandexercise. For prior imaging, patient reportsx rayandmri. For previous injections, patient reportshelped temporarily. For previous pt, patient reportshelped temporarily.ROS as noted in the [facility] Hernando Barahona MD [address],[facility] [address], [place], [address], [place] - Comp-Assistd and Rcnstrctive Surgry 10/19/2014 14:40:40 03/27/20 15 text/htm l Hip(s) AthenaReported by PatientHPIFor location, patient reportsrightandgroin. For severity, patient reportsmild. For alleviating factors, patient reportsrest. For aggravating factors, patient reportswalkingandexercise. For associated symptoms, patient reportsno weakness,no numbness,no tingling,no swelling,no redness,no warmth,no ecchymosis,no catching/locking,no popping/clicking,no buckling,no grinding,no instability,no radiation down leg,no drainage,no fever,no chills,no weight loss, andno change in bowel/bladder habits. For prior imaging, patient reportsx rayandct scan. For previous pt, patient reportshelped significantly.ROS as noted in the HPI Hernando Barahona MD [address], [place], [address], [place] - Comp-Assistd and Rcnstrctive Surgry 03/27/2015 14:18:32 07/05/20 15 text/htm l Hip(s) AthenaReported by PatientHPIFor associated symptoms, patient reportsswellingbut reportsno weakness,no numbness,no tingling,no redness,no warmth,no ecchymosis,no catching/locking,no popping/clicking,no buckling,no grinding,no instability,no radiation down leg,no drainage,no fever,no chills,no weight loss, andno change in bowel/bladder habits. For location, patient reportsrightandgroin. For severity, patient reportssevere. For alleviating factors, patient reportsrest. For aggravating factors, patient reportswalkingandgetting out of bed(active hip flexion.). For prior imaging, patient reportsx rayandct scan. For previous pt, patient reportshelped significantly.Pain with active hip flexion.ROS as noted in the [facility] Hernando Barahona MD [address], [place], [address], [place] - Comp-Assistd and Rcnstrctive Surgry 07/05/2015 18:14:38 01/27/20 18 text/htm l Hip(s) AthenaReported by PatientHPIFor location, patient reportsrightandgroin. For severity, patient reportsmoderate. For alleviating factors, patient reportsrest. For associated symptoms, patient reportsno weakness,no numbness,no tingling,no swelling,no redness,no warmth,no ecchymosis,no catching/locking,no popping/clicking,no buckling,no grinding,no instability,no radiation down leg,no drainage,no fever,no chills,no weight loss, andno change in bowel/bladder habits. For prior imaging, patient reportsx rayandct scan. For previous pt, patient reportshelped temporarily. For aggravating factors, (active hip flexion).ROS as noted in the HPI Hernando Barahona MD [address], [place], [address], [place] - Comp-Assistd and Rcnstrctive Surgry 01/26/2018 11:56:56 OBGyn Episode No OBEpisode recorded.
--- OUTSIDE RECORDS SUMMARY | 2025-09-01 08:35 | XMS_ITS | Clinical Summary ---
Author Organization [facility] Address [address] [place] [address] Care Team Providers Care Cribber Name Role Phone Ilene Mckeon MD Primary Care Provider [phone] Allergies No known active allergies Medications LORazepam [...] eservative (Fluzone; Afluria) 6mo and older 06/22/2019,09/27/2016 Alere SARS-CoV-2 COVID-19, mRNA, LNP-S, preservative free 01/02/2021,12/11/2020 Td, Unspecified 03/21/2004 Tdap Tetanus diptheria acell ular pertussis (Boostrix; Adacel) 7yo and older 04/14/2020,11/09/2015,10/01/2012 Surgical History Surgery Date Site/Laterality Comments OTHER SURGICAL HISTORY PROCEDURE: PERIACETABULAR OSTEOTOMY; COMMENT: left in 12/2009 and right in 03/2010 OTHER SURGICAL HISTORY PROCEDURE: [place] REVJ TOT HIP ARTHRP BTH W/WO AGRFT/ALGRFT; COMMENT: arthroscopic (right hip) 08/2011 OTHER SURGICAL HISTORY Right PROCEDURE: [place] ARTHRP ACETBLR/PROX FEM PROSTC AGRFT/ALGRFT; COMMENT: 02/10/2015 [...] on file Sexual Orientation Not on file Plan of Treatment Health Maintenance Due Date Last Done Comments Drug Screen 1981 Non-Opioid Controlled Substance Agreement 1981 Hepatitis B Vaccines (1 of 3 - [...] 75+ series) 2056 HPV Vaccines Completed 10/21/2008, 02/2008, 04/18/2008 HIV [...] mammographic evidence of malignancy. BI-RADS 2-benign Result [facility] Laure Domingo MD IMG XR PROCEDURES Final Re sult * (ABNORMAL) Lipid panel (05/29/2021) [facility] LDL/HDL Ratio 4 0 - 4 Triglycerides 133 0 - 150 mg/dL Cholesterol 248(A) 0 - 200 mg/dL HDL 65 >=40 mg/dL LDL Cholesterol 157(A) 0 - 100 mg/dL Blood Venous blood specimen / Unknown Result [facility] Provider LAB BLOOD ORDERABLES Claudette l Result * HIV Screening (11/16/2019) [facility] HIV Screening abstracted Result [facility] Provider HEALTH MAINTENANCE Final Result * Hepatitis C Screening (11/16/2019) [facility] Hepatitis C Screening abstracted Result [facility] Provider HEALTH MAINTENANCE Final Result * Cervical Cancer Screening: HPV (05/15/2018) [facility] Cervical Cancer Screening: HPV negative, abstracted Result [facility] Radha THOMPSON HEALTH MAINTENANCE Final Result from Last 3 Months or Most Recently Relevant to Health Maintenance Care Teams Cribber Relationship Specialty Start Date End Date Ilene Mckeon MD PCP - General Internal Medicine 05/09/22
--- OUTSIDE RECORDS SUMMARY | 2025-09-01 08:35 | XMS_ITS | Patient Health Record ---
Author Organization [facility] Address [address] [place] [address] Care Team Providers Care Digital Product Specialist Name Role Phone Kari Walter Primary Care Provider Meka Henderson Unavailable [phone] Allergies No Known Allergies Reason For Referral [...] Treatment Pending Test Test Name Order Date ,[id number] TENDON SHEATH/LIGAMENT 0 05/22/2023 Insurance Providers Payer Name Payer Address Payer Phone Subscriber Number Group Number Insured Name Patient Relationship to Insured Coverage Start Date Coverage End Date [facility] All Others [address] [place] [address] [id number] Kody Chery Spouse - patient is the spouse of the insured Medical (General) History Medical History History ICD Code asthma Back,Hip,and Knee pain Chicken pox Headaches/Migraines Transfusions Surgical History Surgery Date(Month/Year) hip replacement right 2015 left hip surgery 2009
--- NOTE | 2025-09-01 08:48 | MHC.PC.OV ---
Vital Signs 09/01/25 08:49 Height 5 ft 6 in Weight 184 lb BMI 29.7 BP 108/68 Blood Pressure Location Lt brachial Position Sitting Respiration 18 Pulse 86 Pulse Source Pulse Oximeter Temp 97.2 F Temp Source Temporal Artery Scan Pulse Oximetry (%) 98 Oxygen Delivery Method Room Air Intake Visit Reasons: 6mth f/u Street Cleaning Equipment Operator Required: No Accompanied by: Self / Same As Patient Allergies No Known Allergies (No Known Allergies*) Allergy (Verified 09/01/25 09:22) Medication List - Last Reconciled 09/01/25 by Raul Richardson MD albuterol sulfate 90 mcg/actuation (Ventolin HFA) 2 puffs inhalation Q4-6H PRN 30 days lorazepam 0.5 mg PO DAILY PRN spironolactone 25 mg PO DAILY sumatriptan succinate take 1 tab at onset of headache; if no relief may repeat 1 tab after at least 2 hrs; max = 4 tabs/24 hr PO 30 days Tobacco use date assessed: 02/17/25 Dental Screening Dental Screen Date: 02/17/25 HPI HPI Comments History of Present Illness Details History of Present Illness - The patient is a 44 year old female presenting for management of altered bowel habits and medication review. - She reports experiencing issues with her bowel movements, characterized by either being super constipated or having up to five small, solid stools per day. - Over the past year, she has noted three episodes of bright red blood in the toilet, prompting concern for a possible internal hemorrhoid. - The onset of these gastrointestinal symptoms coincided with her trial of GLP-1 agonists (Ozempic or similar compounded versions) over the past year. - She was only able to tolerate the lowest dose for about four weeks at a time due to side effects including severe constipation, abdominal pain, nausea, fatigue, and lack of motivation. - She discontinued the medication two to three months ago and has since noticed an improvement in her bowel habits, though they have not completely returned to normal. - The patient reports long-standing hair loss, for which she has consulted a environmental health and safety manager. - The hair loss preceded her use of GLP-1 agonists. - The environmental health and safety manager recommended blood tests for ferritin and zinc. - For anxiety, she takes lorazepam as needed and reports a recent increase in use due to stress, causing her to run low on her medication. - She has a prescription for migraine medication but has never used it. - Her last blood work in February was mostly normal, though her LDL cholesterol was noted to be slightly high. - Health maintenance is current, with a recent mammogram and a Pap smear performed last month. Social History - Employment: The patient reports that work is crazy. Results - Labs: Blood work from February was noted to be normal, with the exception of a slightly high LDL cholesterol. PFSH Medical History Nicotine dependence due to vaping tobacco product Nicotine dependence Screening for human papillomavirus (HPV) (~12/2022) Hx of mammogram (~11/2023) Generalized anxiety disorder Plantar fasciitis of left foot Deep vein thrombosis of left lower extremity Migraine with aura History of smoking Asthma Hyperlipidemia Encounter to establish care History of cigarette smoking Surgical History H/O liposuction of abdomen H/O abdominoplasty Previous section History of hip surgery Family History Mother Diabetes Father History of prostate cancer Social History Household Members: Spouse Household Members Other:: 3 children (one on her own) Housing: House Alcohol intake: current Alcohol intake frequency: a few times a week Patient Tobacco Use Status: Former Tobacco user Tobacco use type: Cigarette Years Smoked: pt quit 13 years ago, 1PPD e-Cigarette/Vaping Use: Former Use Second Hand Smoke Exposure: Yes service: No 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al status: employed 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: [employer]/ [employer] 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al exposures/hazards: No Sexual orientation: Straight/Heterosexual Gender identity: Female Cognitive needs: No Hearing needs: No Vision needs: Yes (glasses) Questionnaire Thrive Questionnaire Date Thrive assessed: 02/10/25 I am a: Patient What is your living situation today?: I have a steady place to live Within the past 12 months, did the food you bought not last and you didn't have the money to get more?: Never true Within the past 12 months, did you worry whether your food would run out before you got money to buy more?: Never true Do you have trouble paying for medicines?: No Do you have trouble getting transportation to medical appointments?: No Do you have trouble paying your heating and electricity bill?: No Do you have trouble taking care of your child, family member or friend?: No Do you have trouble with day-to-day activities such as bathing, preparing meals, shopping, managing finances, etc.?: No Are you currently unemployed and looking for a job?: No Are you interested in more education?: No Please select the resources that you would like help with: None Currently or been in a relationship where the following occur: No concerns reported THRIVE Score: 0 CHINA-7 AMB Questionnaire CHINA-7 Date CHINA - 7 assessed: 02/17/25 Source: Developed by Drs. Tigre Hall, Misti Ashton, Albaro Bhatti and colleagues, with an educational chidi from [employer]. Review of Systems Narrative Review of Systems - Gastrointestinal: Reports alternating constipation and frequent, small, solid bowel movements. - Reports three episodes of hematochezia over the past year. - Reports a history of abdominal pain and a sensation of wanting to vomit while taking GLP-1 agonists. - Dermatologic: Reports chronic hair loss. - Psychiatric: Reports increased anxiety. - Constitutional: Reports a history of fatigue and lack of motivation while taking GLP-1 agonists. - Neurologic: Endorses a history of random migraines but has not taken her prescribed medication for them. Physical exam (Primary Care) Vital Signs: Last Vital Signs Temp 97.2 F 09/01/25 08:49 Pulse 86 09/01/25 08:49 Resp 18 09/01/25 08:49 BP 108/68 09/01/25 08:49 Pulse Ox 98 09/01/25 08:49 Oxygen Delivery Method Room Air 09/01/25 08:49 BMI result Body Mass Index 29.7 Tobacco/Smoking Status: Tobacco use Status Tobacco use date assessed 02/17/25 09/01/25 08:55 Patient Tobacco Use Status Former Tobacco user 09/01/25 08:55 Tobacco use type Cigarette 09/01/25 08:55 e-Cigarette/Vaping Use Former Use 09/01/25 08:55 Thrive Assessment: Date of Thrive Assessment Date Thrive assessed 02/10/25 09/01/25 08:55 Currently or been in a relationship where the following occur: No concerns reported Narrative Physical Exam General: Cooperative and healthy appearing Nutritional Appearance: Well nourished Orientation/consciousness: Patient oriented x3 Limitations: No limitations Head: Normal to inspection General: Appearance normal, both eyes and all related structures Neck: Normal visual inspection Chest: Normal palpation of entire chest wall Respiratory: Normal respiratory effort Neurology: Patient oriented x3 Coding Level of Care Code Est Pt Level 4 (75294) Add On Problem Visit Only Diagnoses Constipation K59.00 Assessment & Plan Assessment & Plan (1) Constipation: Code(s): K59.00 - Constipation, unspecified Plan Plan - The patient's constipation and altered bowel habits are attributed to her prior use of a GLP-1 agonist and are expected to resolve. - She is advised to increase dietary fiber, including bran and greens, to promote regular bowel movements. - A prescription for suppositories will be sent to manage bleeding, presumed to be from hemorrhoids. - The patient is instructed to report if bleeding persists despite using the suppositories. - The prescription for lorazepam will be increased to 20 pills per month, and a new prescription will be sent to the pharmacy. - Lab work will be ordered to include routine tests, a lipid panel, and specific tests for hair loss evaluation (ferritin and zinc) as requested by her environmental health and safety manager. - An influenza vaccination will be administered during the visit. - The patient will follow up in six months. Discussion Notes I discussed with the patient that her constipation and altered bowel habits are likely related to her prior use of a GLP-1 agonist, and I expect these symptoms will continue to resolve. I recommended increasing dietary fiber with bran and greens to help regulate her bowel movements. For the rectal bleeding, I am prescribing suppositories and instructed her to notify us if bleeding continues. We addressed her increased anxiety, and I have sent a prescription for an increased quantity of lorazepam. I informed her that I have added the lab tests requested by her environmental health and safety manager to her routine blood work order. We confirmed she is up to date on her mammogram and Pap smear, and she will receive a flu shot today. A follow-up visit is scheduled for six months. Patient Instructions - To help with constipation, increase the amount of fiber in your diet by eating more greens and bran products. - I have sent a prescription for suppositories to your pharmacy for the rectal bleeding. - After a bowel movement, clean the area and insert one suppository into your rectum. - If you see more bleeding with the next bowel movement, insert another one. - Please contact our office if the bleeding continues. - I am sending a new prescription for lorazepam (20 pills per month) to your pharmacy. - Please go for blood work. - The order includes routine labs and the tests for hair loss that your environmental health and safety manager requested. - You will receive a flu shot today. - Please schedule a follow-up appointment in six months. Orders: Orders Vitamin D 25-OH (D2 and D3) Today L65.9 - Nonscarring hair loss, unspecified Ferritin Today L65.9 - Nonscarring hair loss, unspecified Zinc Today L65.9 - Nonscarring hair loss, unspecified Medications: Refilled lorazepam 0.5 mg PO DAILY PRN 20 tabs 0RF anxiety F41.9 - Anxiety disorder, unspecified
[2025-09-01 08:49] VITALS: BP 108/68; PULSE 86; RESP 18; TEMP 36.2; O2SAT 98; BMI 29.7
== END 2025-09-01 09:23 | disposition home or self-care (01) ==
LOC: HO.HMCH 08:19
PROVIDERS: PCP Internal Medicine; Visit Provider Internal Medicine
DX: Z23 Encounter for immunization (principal); K59.00 Constipation, unspecified

== ENCOUNTER → 2025-09-01 08:18 | Outpatient (BNVA) | payer BC, SELFPAY | PROVIDERS: PCP Internal Medicine; Visit Provider Internal Medicine | DX: Z23 Encounter for immunization (principal); K59.00 Constipation, unspecified | CPT/HCPCS: 90471; 90656 ==

== ENCOUNTER 2025-09-13 08:53 | Outpatient (REF) | payer BC, SELFPAY ==
--- OUTSIDE RECORDS SUMMARY | 2025-09-13 10:56 | XMS_ITS | Clinical Summary ---
Author Organization [facility] Address [address] [place] [id number] Phone Care Team Providers Care Tie Puller Name Role Phone Raul Richardson MD Primary Care Provid er Allergies No known active allergies Medications LORazepam (ATIVAN) 0.5 MG tablet 10/10/2016 Active spironolactone (ALDACTONE) 25 MG tablet Take 1 tablet by mouth every morning. 06/23/2024 Active Active Problems No known active problems Social History Tobacco Use Types Packs/Day Years Used Date Smoking Tobacco: Never Assessed Education Answer Date Recorded Are you interested in more education? Not on joaquin e 01/11/2023 Are you concerned about learning? Not on file 01/11/2023 No 01/11/2023 No 01/11/2023 Digital Access Answer Date Recorded No 02/11/2023 No 02/11/2023 Reliable internet access at home? Not on file 02/11/2023 Device with a working camera? Not on file Comments Unknown Sex and Gender Information Value Date Recorded Sex Assigned at Female 08/10/2024 7:32 AM EST Legal Sex Female 7:41 AM EDT Gender Identity Female 08/10/2024 7:32 AM EST Sexual Orientation Straight 08/10/2024 7: 32 AM EST Last Filed Vital Signs Vital Sign Reading Time Taken Comments Blood Pressure 109/77 12/09/2024 11:13 AM EDT Pulse 90 12/09/2024 11:13 AM EDT Temperature 36.8 C (98.2 F) 12/09/2024 11:13 AM EDT Respiratory Rate 17 12/09/2024 11:13 AM EDT Oxygen Saturation 99% 12/09/2024 11:13 AM EDT Inhaled Oxygen Concentration - - Weight - - Height - - Body Mass Index - - Plan of Treatment Health Maintenance Due Date Last Done Comments POTASSIUM LEVEL 1981 DEPRESSION SCREENING 1993 SMOKING Hx and SMOKELESS TOBACCO SCREENING 1994 HEPATITIS C SCREENING 1999 HIV ONE-TIME SCREENING (18-65 YEARS) 1999 PAP SMEAR 2002 MAMMOGRAM 2021 INFLUENZA VACCINE (#1) 2025 , 05/29/2021, 07/19/2020, Additional history exists COVID-19 VACCINE ( season) 2025 08/01/2021, 01/02/2021, 12/11/2020 Adult Td,Tdap Booster 04/14/2030 04/14/2020 , 11/09/2015, 10/01/2012, Additional history exists HEPATITIS A VACCINES Aged Out No long er eligible based on patient's age to complete this topic HIB VACCINES Aged Out No longer eligi ble based on patient's age to complete this topic MENINGOCOCCAL VACCINES (ACWY) Aged Out No longer eligible based on patient's age to complete this topic MENINGOCOCCAL VACCINES (B) Aged Out N o longer eligible based on patient's age to complete this topic PNEUMOCOCCAL VACCINES (0-49 years) Aged Out No longer eligible based on patient's age to complete this topic Medical Devices Not on file Insurance [facility] PPO EPO [facility] [place] [id number] [facility] P[facility] EPO [facility] PPO EPO 5 [place] Care Teams Tie Puller Relationship Specialty Start Date End Date Raul Richardson MD [address] [place] [address] [place] [address] PCP - General Internal Medicine 08/10/24 Additional Source Comments The information contained in this document represents components of the legal health record. It is not the complete legal health record.[facility]
--- OUTSIDE RECORDS SUMMARY | 2025-09-13 10:56 | XMS_ITS | Patient Health Record ---
Author Organization [facility] Address [address] [place] [address] Care Team Providers Care Machine Maintenance Servicer Name Role Phone Kari Walter Primary Care Provider Meka Henderson Unavailable [phone] Allergies No Known Allergies Reason For Referral [...] Treatment Pending Test Test Name Order Date ,[id number] TENDON SHEATH/LIGAMENT 0 05/22/2023 Insurance Providers Payer Name Payer Address Payer Phone Subscriber Number Group Number Insured Name Patient Relationship to Insured Coverage Start Date Coverage End Date [facility] All Others [address] [place] [address] [id number] Kody Chery Spouse - patient is the spouse of the insured Medical (General) History Medical History History ICD Code asthma Back,Hip,and Knee pain Chicken pox Headaches/Migraines Transfusions Surgical History Surgery Date(Month/Year) hip replacement right 2015 left hip surgery 2009
--- OUTSIDE RECORDS SUMMARY | 2025-09-13 10:56 | XMS_ITS | Clinical Summary ---
Author Organization [facility] Address [address] [place] [address] Care Team Providers Care Die Attacher Name Role Phone Unavailable Primary Care Provider Unavailabl e Social History Tobacco Use Types Packs/Day Years Used Date Smoking Tobacco: Never Assessed Comments Unknown Sex and Gender Information Value Date Recorded Sex Assigned at Not on file Legal Sex Female 11:46 PM EST Gender Identity Not on file Sexual Orientation Not on file Plan of Treatment Not on file
--- OUTSIDE RECORDS SUMMARY | 2025-09-13 10:56 | XMS_ITS | Clinical Summary ---
Author Organization [facility] Address [address] [place] [address] Care Team Providers Care Certified Surgical Tech/First Assistant Name Role Phone Ilene Mckeon MD Primary Care Provider [phone] Allergies No known active allergies Medications LORazepam [...] eservative (Fluzone; Afluria) 6mo and older 06/22/2019,09/27/2016 [employer] SARS-CoV-2 COVID-19, mRNA, LNP-S, preservative free 01/02/2021,12/11/2020 Td, Unspecified 03/21/2004 Tdap Tetanus diptheria acell ular pertussis (Boostrix; Adacel) 7yo and older 04/14/2020,11/09/2015,10/01/2012 Surgical History Surgery Date Site/Laterality Comments OTHER SURGICAL HISTORY PROCEDURE: PERIACETABULAR OSTEOTOMY; COMMENT: left in 12/2009 and right in 03/2010 OTHER SURGICAL HISTORY PROCEDURE: [place] REVJ TOT HIP ARTHRP BTH W/WO AGRFT/ALGRFT; COMMENT: arthroscopic (right hip) 08/2011 OTHER SURGICAL HISTORY Right PROCEDURE: [place] ARTHRP ACETBLR/PROX FEM PROSTC AGRFT/ALGRFT; COMMENT: 02/10/2015 [...] mammographic evidence of malignancy. BI-RADS 2-benign Result [facility] Laure Domingo MD IMG XR PROCEDURES Final Re sult * (ABNORMAL) Lipid panel (05/29/2021) [facility] LDL/HDL Ratio 4 0 - 4 Triglycerides 133 0 - 150 mg/dL Cholesterol 248(A) 0 - 200 mg/dL HDL 65 >=40 mg/dL LDL Cholesterol 157(A) 0 - 100 mg/dL Blood Venous blood specimen / Unknown Result [facility] Provider LAB BLOOD ORDERABLES Claudette l Result * HIV Screening (11/16/2019) [facility] HIV Screening abstracted Result [facility] Provider HEALTH MAINTENANCE Final Result * Hepatitis C Screening (11/16/2019) [facility] Hepatitis C Screening abstracted Result [facility] Provider HEALTH MAINTENANCE Final Result * Cervical Cancer Screening: HPV (05/15/2018) [facility] Cervical Cancer Screening: HPV negative, abstracted Result [facility] Radha THOMPSON HEALTH MAINTENANCE Final Result from Last 3 Months or Most Recently Relevant to Health Maintenance Care Teams Certified Surgical Tech/First Assistant Relationship Specialty Start Date End Date Ilene Mckeon MD PCP - General Internal Medicine 05/09/22
[2025-09-13 11:35] LABS: Appearance Urine Clear; Glucose Urine UA Negative (Negative); PH 5.5 (5.0-9.0); Specific Gravity - Urine 1.020 (1.005-1.025)
[2025-09-13 12:24] LABS: Ferritin 42 ng/mL (10-250)
== END 2025-09-13 08:54 | disposition home or self-care (01) ==
LOC: HO.WFDLDS 08:53
PROVIDERS: PCP Internal Medicine; Visit Provider Internal Medicine
DX: Z13.21 Encounter for screening for nutritional disorder (principal); F41.9 Anxiety disorder, unspecified; E78.5 Hyperlipidemia, unspecified; L65.9 Nonscarring hair loss, unspecified
CPT/HCPCS: 36415; 81003; 82306; 82728; 84630